=== PATIENT | female | born 1960 | race Caucasian/White ===

== ENCOUNTER 2020-01-06 13:27 | Outpatient (CLI) | payer OTHER, SELFPAY ==
--- NOTE | ~2020-01-06 | US_ITS ---
EXAMINATION: US thyroid EXAM DATE: 01/06/2020 14:09 INDICATION: Hypothyroidism. TECHNIQUE: Multiple grayscale and Doppler images of the thyroid were obtained (by a technologist who performed the scan) and subsequently reviewed. Individual nodules and recommendations may be reporte d in accordance with TI-RADS system as designated by the 2017 ACR White Paper TI-RADS committee. The re is no prior study for comparison. FINDINGS: Right thyroid lobe measures 2.8 x 0.9 x 0.9 cm, the left measuring 4.1 x 0.7 x 0.8 cm. Mildly heterog eneous thyroid echogenicity without hypervascularity. Thyroid volume within normal limits. No nodules identified. IMPRESSION: 1. Unremarkable thyroid ultrasound exam. Reviewed, dictated and finalized at location A.
== END 2020-01-06 13:28 | disposition home or self-care (01) ==
PROVIDERS: PCP Family Medicine; Visit Provider Physician Assistant
DX: E03.9 Hypothyroidism, unspecified (principal)
CPT/HCPCS: 76536

== ENCOUNTER 2020-02-03 16:22 | Outpatient (CLI) | payer OTHER, SELFPAY ==
--- NOTE | ~2020-02-03 | MM_ITS ---
EXAMINATION: MM screening abel BI w rajiv HISTORY: Screening mammogram TECHNIQUE: Craniocaudal and mediolateral oblique 3-D tomosynthesis images were obtained and synthetic 2-D images were generated. CAD analysis was submitted and interpreted. COMPARISON: 01/23/2019, 01/16/2018, 12/26/2016 bilateral digital screening mammogram examinations BREAST PARENCHYMAL COMPOSITION: The breasts are extremely dense, which lowers the sensitivity of mamm ography. FINDINGS: There are extensive bilateral calcified microhematomas. There is no evidence of suspicious mass, calcification, or architectural distortion to suggest malignancy in either breast. There has be en no suspicious interval change. IMPRESSION: 1. No mammographic evidence of malignancy. 2. Recommend routine screening mammography in one year. BI-RADS Category 2: Benign finding(s). Reviewed, dictated and finalized at location A.
== END 2020-02-03 16:23 | disposition home or self-care (01) ==
LOC: ANHIMG 16:24
PROVIDERS: PCP Family Medicine; Visit Provider Obstetrics & Gynecology
DX: Z12.31 Encounter for screening mammogram for malignant neoplasm of breast (principal)
CPT/HCPCS: 77063; 77067

== ENCOUNTER → 2020-12-03 06:33 | Outpatient (CLI) | payer OTHER, SELFPAY ==
[2020-12-03 18:47] LABS: SARS-CoV-2 RNA PCR Negative
== END ==
PROVIDERS: PCP Nurse Practitioner Adult Health; Visit Provider Nurse Practitioner Adult Health
DX: R68.89 Other general symptoms and signs (principal); Z20.822 Contact with and (suspected) exposure to COVID-19
CPT/HCPCS: C9803; U0003; U0005

== ENCOUNTER 2021-02-03 10:24 | Outpatient (CLI) | payer OTHER, SELFPAY ==
--- NOTE | ~2021-02-03 | MM_ITS ---
EXAMINATION: MM screening abel BI w rajiv HISTORY: Screening mammogram, history of left breast cancer TECHNIQUE: Craniocaudal and mediolateral oblique 3-D tomosynthesis images were obtained and synthetic 2-D images were generated. CAD analysis was submitted and interpreted. COMPARISON: 02/03/2020, 8019, 01/16/2018 BREAST PARENCHYMAL COMPOSITION: The breasts are extremely dense, which lowers the sensitivity of mamm ography. FINDINGS: Scattered benign-appearing calcifications are present. Stable lumpectomy changes are noted in the left breast. There is no evidence of suspicious mass, calcification, or architectural distorti on to suggest malignancy in either breast. There has been no suspicious interval change. IMPRESSION: 1. No mammographic evidence of malignancy. 2. Recommend routine screening mammography in one year. BI-RADS Category 2: Benign finding(s). Reviewed, dictated and finalized at location A.
== END 2021-02-03 10:25 | disposition home or self-care (01) ==
PROVIDERS: PCP Nurse Practitioner Adult Health; Visit Provider Obstetrics & Gynecology
DX: Z12.31 Encounter for screening mammogram for malignant neoplasm of breast (principal)
CPT/HCPCS: 77063; 77067

== ENCOUNTER → 2022-05-09 08:37 | Outpatient (CLI) | payer OTHER, SELFPAY ==
--- NOTE | ~2022-05-09 | MM_ITS ---
EXAMINATION: MM screening abel BI w rajiv HISTORY: Screening mammogram TECHNIQUE: Craniocaudal and mediolateral oblique 3-D tomosynthesis images were obtained and synthetic 2-D images were generated. CAD analysis was submitted and interpreted. COMPARISON: 02/03/2021, 02/03/2020, 01/23/2019, 01/16/2018 bilateral screening mammogram examinations BREAST PARENCHYMAL COMPOSITION: The breasts are extremely dense, which lowers the sensitivity of mamm ography. FINDINGS: Numerous benign calcifications are again noted, especially on the left. Chronic volume loss of the left breast consistent with history of 2009 partial mastectomy for breast cancer. There is no evidence of suspicious mass, calcification, or architectural distortion to suggest malig hao in either breast. There has been no suspicious interval change. IMPRESSION: 1. Status post left partial mastectomy for breast cancer. No mammographic evidence of malignancy. 2. Recommend routine screening mammography in one year. BI-RADS Category 2: Benign finding(s). Reviewed, dictated and finalized at location A. 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 Status post left partial mastectomy for breast cancer. No mammographic evide nce of malignancy. 2. Recommend routine screening mammography in one year. BI-RADS Category 2: Benign finding(s).
== END ==
PROVIDERS: PCP Obstetrics & Gynecology; Visit Provider Obstetrics & Gynecology
DX: Z12.31 Encounter for screening mammogram for malignant neoplasm of breast (principal); Z85.3 Personal history of malignant neoplasm of breast
CPT/HCPCS: 77063; 77067

== ENCOUNTER 2022-10-04 14:58 | Emergency (ER) | payer OTHER, SELFPAY ==
--- NOTE | 2022-10-04 15:05 | ED.SKABFB ---
HPI - Skin/Abscess/Foreign Bdy General Chief complaint: Skin/Abscess/Foreign Body Stated complaint: rash Time Seen by Provider: 10/04/22 15:07 Source: patient Mode of arrival: ambulatory Limitations: no limitations History of Present Illness HPI narrative: 61 y/o female presented for c/o severely itchy rash to groin/lisa area intermittently over the past few weeks. States symptoms will improve with OTC vagisil. Rates irritation 8/10. Denies urinary complaints. History of DM, states BS are well controlled. Related Data Home Medications Medication Instructions Recorded Confirmed cholecalciferol (vitamin D3) 100 4,000 unit PO DAILY 06/30/19 04/26/21 mcg (4,000 unit) capsule lancets 33 gauge (OneTouch Delica #100 ea 07/02/19 04/26/21 Lancets) famotidine 40 mg tablet (Pepcid) 40 mg PO DAILY 09/23/20 04/26/21 vit C 226 mg-vit E 90 mg-copper cap PO 09/23/20 04/26/21 0.8 mg-zinc oxide-lutein 5 mg capsule (PreserVision Lutein) vitamin E mixed 400 unit capsule unit PO 09/23/20 04/26/21 Allergies Allergy/AdvReac Type Severity Reaction Status Date / Time exenatide Allergy Mild swelling Verified 10/04/22 15:11 and rash Sulfa (Sulfonamide Allergy Mild rashes Verified 10/04/22 15:11 Antibiotics) tetracycline Allergy Mild swelling Verified 10/04/22 15:11 and rashes citicoline Allergy Unknown SWELLING, Verified 10/04/22 15:11 FLUSH Review of Systems Review of Systems: CONSTITUTIONAL: Denies body aches, fever, chills, or sweats. EYES: Denies visual changes, redness, or discharge. ENT: Denies rhinorrhea, congestion CARDIOVASCULAR: Denies chest pain, palpitations, or edema. RESPIRATORY: Denies cough or dyspnea. GASTROINTESTINAL: Denies abdominal pain, nausea, vomiting, or diarrhea. SKIN: per HPI MUSCULOSKELETAL: Denies back pain, joint pain, or myalgia. NEUROLOGIC: Denies headache, numbness, tingling, or weakness. PMFSH Past Medical History Medical History Benign essential HTN Hypothyroidism, acquired Macular degeneration (senile) of retina Microalbuminuria due to type 2 diabetes mellitus Pure hypercholesterolemia, unspecified Restless legs syndrome Batista syndrome Type 2 diabetes mellitus without complication, without long-term current use of insulin Surgical History Surgical History History of lumpectomy of left breast Family History Family History Other Cerebrovascular accident Family history of atrial fibrillation Family history of cardiovascular disease Family history of congestive heart failure Family history of hearing loss Hypertension Social History Social History Smoking status: Never smoker Second hand tobacco smoke exposure: No Alcohol intake: never Substance use: never Substance use type: does not use Living arrangements: with family Additional living arrangements comments: pt lives with her Occupation/Education: retired Gender identity (if verbalized by the patient): Female Sexual Orientation (if Verbalized by the Patient): Straight or Heterosexual Comments At time of signature, I have reviewed and agree with nursing past medical, surgical, social and family history unless otherwise noted. Please see nursing chart for further information. There is no relevant family history pertinent to the presenting complaint Exam Narrative: GENERAL: Well-appearing HEAD: Normocephalic, atraumatic. EYES: conjunctivae clear, and EOMI. ENT: Mucous membranes moist. Oropharynx without edema, erythema or lesions. NECK: Supple. No lymphadenopathy CHEST: Clear to auscultation. HEART: Regular rate and rhythm. SKIN: Warm, dry. Bilateral groin and pubic area with erythematous pruritic rash c/w fungal dermatitis NEURO: Alert
[2022-10-04 15:08] VITALS: BP 154/85; PULSE 100; RESP 16; TEMP 36.1; O2SAT 98
[2022-10-04 15:13] VITALS: BP 154/85; PULSE 100; RESP 16; TEMP 36.1; O2SAT 98
== END 2022-10-04 15:31 | disposition home or self-care (01) ==
PROVIDERS: Emergency Provider Nurse Practitioner Family; PCP Physician Assistant
DX: B37.49 Other urogenital candidiasis (principal); I10 Essential (primary) hypertension; E03.9 Hypothyroidism, unspecified; E78.00 Pure hypercholesterolemia, unspecified; G25.81 Restless legs syndrome; E11.9 Type 2 diabetes mellitus without complications; H35.30 Unspecified macular degeneration
CPT/HCPCS: 81003; 99213; G0463

== ENCOUNTER 2022-11-09 09:38 | Emergency (ER) | payer OTHER, SELFPAY ==
[2022-11-09 10:02] VITALS: BP 141/89; PULSE 75; RESP 16; TEMP 36.7; O2SAT 100
--- NOTE | 2022-11-09 10:23 | ED.SKABFB ---
HPI - Skin/Abscess/Foreign Bdy General Chief complaint: Skin/Abscess/Foreign Body Stated complaint: vaginal fungal infection Source: patient, RN notes reviewed and old records reviewed History of Present Illness HPI narrative: 61 yo F presents to urgent care with complaints of a persistent rash to her groin area x 4-6 weeks. Pt was seen here in the beginning of the rash and given Nystatin cream. Pt states the cream helped but has returned after stopping using it. Pt is diabetic and states her blood sugar was in the 150's today which is higher than her normal. Pt reports associated pruritis with this rash. Denies any vaginal discharge, fevers, urinary issues, or abdominal pain. Related Data Home Medications Medication Instructions Recorded Confirmed cholecalciferol (vitamin D3) 100 4,000 unit PO DAILY 06/30/19 04/26/21 mcg (4,000 unit) capsule lancets 33 gauge (RapidEnginesuch Delica #100 ea 07/02/19 04/26/21 Lancets) famotidine 40 mg tablet (Pepcid) 40 mg PO DAILY 09/23/20 04/26/21 vit C 226 mg-vit E 90 mg-copper cap PO 09/23/20 04/26/21 0.8 mg-zinc oxide-lutein 5 mg capsule (PreserVision Lutein) vitamin E mixed 400 unit capsule unit PO 09/23/20 04/26/21 Allergies Allergy/AdvReac Type Severity Reaction Status Date / Time exenatide Allergy Mild swelling Verified 10/04/22 15:11 and rash Sulfa (Sulfonamide Allergy Mild rashes Verified 10/04/22 15:11 Antibiotics) tetracycline Allergy Mild swelling Verified 10/04/22 15:11 and rashes citicoline Allergy Unknown SWELLING, Verified 10/04/22 15:11 FLUSH Review of Systems Review of Systems: Pertinent positives and pertinent negatives per HPI. PMFSH Past Medical History Medical History Benign essential HTN Hypothyroidism, acquired Macular degeneration (senile) of retina Microalbuminuria due to type 2 diabetes mellitus Pure hypercholesterolemia, unspecified Restless legs syndrome Batista syndrome Type 2 diabetes mellitus without complication, without long-term current use of insulin Surgical History Surgical History History of lumpectomy of left breast Family History Family History Other Cerebrovascular accident Family history of atrial fibrillation Family history of cardiovascular disease Family history of congestive heart failure Family history of hearing loss Hypertension Social History Social History Smoking status: Never smoker Second hand tobacco smoke exposure: No Alcohol intake: never Substance use: never Substance use type: does not use Living arrangements: with family Additional living arrangements comments: pt lives with her Occupation/Education: retired Gender identity (if verbalized by the patient): Female Sexual Orientation (if Verbalized by the Patient): Straight or Heterosexual Comments At the time of my signature, I reviewed and agree with the nursing past medical, surgical, social, and family history. There is no relevant family history pertinent to the patient complaint. Exam Narrative: GENERAL: This is a well-nourished, well-developed patient, in no apparent distress. HEAD: normocephalic, atraumatic. EYES: Sclera clear/white. Vision is grossly intact. EARS: External ears normal, auditory canals clear and without drainage. Hearing grossly intact. NOSE: External nose normal with no obvious nasal discharge, nares without redness, no rhinorrhea. THROAT: Mucous membranes moist, posterior pharynx clear. NECK: Neck supple, non-tender without lymphadenopathy, masses or thyromegaly. CARDIOVASCULAR: Regular rate RESPIRATORY: no respiratory distress SKIN: erythremic, flat, rash to bilateral groin. no exudate. NEURO: awake, alert, and oriented to person, place
== END 2022-11-09 10:37 | disposition home or self-care (01) ==
PROVIDERS: Emergency Provider Nurse Practitioner Family; PCP Pediatrics
DX: B36.9 Superficial mycosis, unspecified (principal); I10 Essential (primary) hypertension; E03.9 Hypothyroidism, unspecified; H35.30 Unspecified macular degeneration; E11.9 Type 2 diabetes mellitus without complications; E78.00 Pure hypercholesterolemia, unspecified; G25.81 Restless legs syndrome; Q96.9 Turner's syndrome, unspecified
CPT/HCPCS: 99213; G0463

== ENCOUNTER 2023-02-15 08:00 | Outpatient (NON) | payer OTHER, SELFPAY | END 2023-02-15 08:01 | disposition home or self-care (01) | LOC: ANHLAB 02-16 12:55 | PROVIDERS: PCP Pediatrics; Visit Provider Nurse Practitioner | DX: D22.39 Melanocytic nevi of other parts of face (principal); L72.0 Epidermal cyst | CPT/HCPCS: 88305 ==

== ENCOUNTER 2023-04-12 07:30 | Day surgery (SDC) | payer OTHER, SELFPAY ==
[2023-03-29 13:09] VITALS: BMI 32.1
--- NOTE | 2023-04-11 14:51 | PM.HPGS ---
History of Present Illness History of Present Illness Consent: Risks, benefits, and alternatives have been discussed and questions answered. Patient agrees to proceed with procedure. Chief complaint: neoplasm screening Narrative: Nidhi Martines is a 62 year old female referred for colon cancer screening. Her last colonoscopy was 10 years ago. [facility] Past Medical History Medical History (Updated 04/11/23 @ 14:51 by Teofilo Hernandez MD) Benign essential HTN Hypothyroidism, acquired Macular degeneration (senile) of retina Microalbuminuria due to type 2 diabetes mellitus Pure hypercholesterolemia, unspecified Restless legs syndrome Batista syndrome Type 2 diabetes mellitus without complication, without long-term current use of insulin Surgical History Surgical History (Updated 04/04/23 @ 11:10 by Tori Larson [facility]) History of lumbar fusion History of lumpectomy of left breast Family History Family History Other Cerebrovascular accident Family history of atrial fibrillation Family history of cardiovascular disease Family history of congestive heart failure Family history of hearing loss Hypertension Social History Social History (Updated 04/04/23 @ 11:10 by Tori Larson [facility]) Smoking status: Never smoker Second hand tobacco smoke exposure: No Alcohol intake: current Alcohol use details: 1 drink monthly Substance use: never Substance use type: does not use Lack of Transportation: No Lack of Food: Never True Current Housing: I Have Housing Concerned About Future Housing: No Difficulty Paying Gas/Electric Bills: No Difficulty Paying for Meds: No Currently Unemployed: No Education: Master's Degree or Higher Difficulty w/ Childcare or Family Care: No Living arrangements: with family Additional living arrangements comments: pt lives with her Occupation/Education: retired Gender identity (if verbalized by the patient): Female Sexual Orientation (if Verbalized by the Patient): Straight or Heterosexual Spiritual care concerns: No Meds Home Medications and Allergies Home Medications Medication Instructions Recorded Confirmed Type pramipexole 0.25 mg tablet 0.25 mg PO TID #270 tabs 01/02/20 04/04/23 Rx valsartan 160 1 tablet PO DAILY #90 tabs 01/02/20 04/04/23 Rx mg-hydrochlorothiazide 12.5 mg tablet blood sugar diagnostic #200 ea 07/07/20 04/04/23 Rx famotidine 40 mg tablet (Pepcid) 40 mg PO DAILY 09/23/20 04/04/23 History vit C 226 mg-vit E 90 mg-copper 1 cap PO BID 09/23/20 04/04/23 History 0.8 mg-zinc oxide-lutein 5 mg capsule (PreserVision Lutein) vitamin E mixed 400 unit capsule 400 unit PO DAILY 09/23/20 04/04/23 History mecobalamin (vitamin B12) 1,000 1,000 mcg PO DAILY 03/29/23 04/04/23 History mcg chewable tablet omega 2-wxg-swd-fish oil 900 1 cap PO DAILY 03/29/23 04/04/23 History mg-1,400 mg capsule,delayed release atorvastatin 20 mg tablet 20 mg PO DAILY #90 tabs 04/04/23 04/04/23 Rx blood sugar diagnostic (OneTouch #100 ea 04/04/23 04/04/23 Rx Ultra Test strips) cholecalciferol (vitamin D3) 100 1,000 unit PO DAILY 04/04/23 04/04/23 History mcg (4,000 unit) capsule dulaglutide 3 mg/0.5 mL 3 mg (0.5 mL) subcut WEEKLY 3 04/04/23 04/04/23 Rx subcutaneous pen injector months #6.5 mL lancets 33 gauge #100 ea 04/04/23 04/04/23 Rx levothyroxine 88 mcg tablet 88 mcg PO DAILY #90 tabs 04/04/23 04/04/23 Rx metformin 500 mg tablet 500 mg PO TIDWMEAL 90 days #270 04/04/23 04/04/23 Rx tabs blood sugar diagnostic (Accu-Chek #100 ea 04/10/23 Rx Guide test strips) Allergies Allergy/AdvReac Type Severity Reaction Status Date / Time exenatide Allergy Mild swelling Verified 04/04/23 11:08 and rash Sulfa (Sulfonamide Allergy Mild rashes Verified 04/04/23 11:08 Antibiotics) tetracycline Allergy Mild swelling Verified 04/04/23 11:08 and
[2023-04-12 06:23] VITALS: BP 147/84; PULSE 75; RESP 18; TEMP 36.6; O2SAT 100; BMI 32.3
[2023-05-14 14:55] VITALS: BMI 32.1
--- NOTE | 2023-05-25 09:35 | SUR.PREOP ---
Patient called regarding upcoming procedure. Reviewed preop instructions, appointment times, and procedure prep.
--- NOTE | 2023-05-27 14:18 | PM.HPGS ---
History of Present Illness History of Present Illness Consent: Risks, benefits, and alternatives have been discussed and questions answered. Patient agrees to proceed with procedure. Chief complaint: neoplasm screening Narrative: Nidhi Martines is a 62 year old female Referred for colon cancer screening. Her last colonoscopy was 10 years ago. Review of Systems Review of Systems: All systems reviewed & are unremarkable except as noted in HPI and below PMFSH Past Medical History Medical History Benign essential HTN Hypothyroidism, acquired Macular degeneration (senile) of retina Microalbuminuria due to type 2 diabetes mellitus Pure hypercholesterolemia, unspecified Restless legs syndrome Batista syndrome Type 2 diabetes mellitus without complication, without long-term current use of insulin Surgical History Surgical History History of lumbar fusion History of lumpectomy of left breast Family History Family History Other Cerebrovascular accident Family history of atrial fibrillation Family history of cardiovascular disease Family history of congestive heart failure Family history of hearing loss Hypertension Social History Social History Smoking status: Never smoker Second hand tobacco smoke exposure: No Alcohol intake: current Alcohol use details: Rarely Substance use: never Substance use type: does not use Lack of Transportation: No Lack of Food: Never True Current Housing: I Have Housing Concerned About Future Housing: No Difficulty Paying Gas/Electric Bills: No Difficulty Paying for Meds: No Currently Unemployed: No Education: Master's Degree or Higher Difficulty w/ Childcare or Family Care: No Living arrangements: with family Additional living arrangements comments: pt lives with her Occupation/Education: retired Gender identity (if verbalized by the patient): Female Sexual Orientation (if Verbalized by the Patient): Straight or Heterosexual Spiritual care concerns: No Meds Home Medications and Allergies Home Medications Medication Instructions Recorded Confirmed Type pramipexole 0.25 mg tablet 0.25 mg PO TID #270 tabs 01/02/20 05/28/23 Rx valsartan 160 1 tablet PO DAILY #90 tabs 01/02/20 05/28/23 Rx mg-hydrochlorothiazide 12.5 mg tablet blood sugar diagnostic #200 ea 07/07/20 05/14/23 Rx famotidine 40 mg tablet (Pepcid) 40 mg PO DAILY 09/23/20 05/28/23 History vit C 226 mg-vit E 90 mg-copper 1 cap PO BID 09/23/20 05/28/23 History 0.8 mg-zinc oxide-lutein 5 mg capsule (PreserVision Lutein) vitamin E mixed 400 unit capsule 400 unit PO DAILY 09/23/20 05/28/23 History mecobalamin (vitamin B12) 1,000 1,000 mcg PO DAILY 03/29/23 05/28/23 History mcg chewable tablet omega 7-iuz-coo-fish oil 900 1 cap PO DAILY 03/29/23 05/28/23 History mg-1,400 mg capsule,delayed release atorvastatin 20 mg tablet 20 mg PO DAILY #90 tabs 04/04/23 05/28/23 Rx blood sugar diagnostic (OneTouch #100 ea 04/04/23 05/14/23 Rx Ultra Test strips) cholecalciferol (vitamin D3) 100 1,000 unit PO DAILY 04/04/23 05/28/23 History mcg (4,000 unit) capsule lancets 33 gauge #100 ea 04/04/23 05/14/23 Rx levothyroxine 88 mcg tablet 88 mcg PO DAILY #90 tabs 04/04/23 05/28/23 Rx metformin 500 mg tablet 500 mg PO TIDWMEAL 90 days #270 04/04/23 05/28/23 Rx tabs blood sugar diagnostic (Accu-Chek #100 ea 04/10/23 05/14/23 Rx Guide test strips) dulaglutide 0.75 mg/0.5 mL 0.75 mg (0.5 mL) subcut WEEKLY #2 04/17/23 05/28/23 Rx subcutaneous pen injector mL (Trulicity) Allergies Allergy/AdvReac Type Severity Reaction Status Date / Time exenatide Allergy Mild swelling Verified 05/28/23 08:15 and rash Sulfa (Sulfonamide Allergy M
--- NOTE | 2023-05-28 09:07 | PM.HPGS ---
History of Present Illness History of Present Illness Consent: Risks, benefits, and alternatives have been discussed and questions answered. Patient agrees to proceed with procedure. Chief complaint: neoplasm screening Narrative: Nidhi Martines is a 62 year old female referred for colon cancer screening. Her last colonoscopy was 10 years ago. Review of Systems Review of Systems: All systems reviewed & are unremarkable except as noted in HPI and below PMFSH Past Medical History Medical History Benign essential HTN Hypothyroidism, acquired Macular degeneration (senile) of retina Microalbuminuria due to type 2 diabetes mellitus Pure hypercholesterolemia, unspecified Restless legs syndrome Batista syndrome Type 2 diabetes mellitus without complication, without long-term current use of insulin Surgical History Surgical History History of lumbar fusion History of lumpectomy of left breast Family History Family History Other Cerebrovascular accident Family history of atrial fibrillation Family history of cardiovascular disease Family history of congestive heart failure Family history of hearing loss Hypertension Social History Social History Smoking status: Never smoker Second hand tobacco smoke exposure: No Alcohol intake: current Alcohol use details: Rarely Substance use: never Substance use type: does not use Lack of Transportation: No Lack of Food: Never True Current Housing: I Have Housing Concerned About Future Housing: No Difficulty Paying Gas/Electric Bills: No Difficulty Paying for Meds: No Currently Unemployed: No Education: Master's Degree or Higher Difficulty w/ Childcare or Family Care: No Living arrangements: with family Additional living arrangements comments: pt lives with her Occupation/Education: retired Gender identity (if verbalized by the patient): Female Sexual Orientation (if Verbalized by the Patient): Straight or Heterosexual Spiritual care concerns: No Meds Home Medications and Allergies Home Medications Medication Instructions Recorded Confirmed Type pramipexole 0.25 mg tablet 0.25 mg PO TID #270 tabs 01/02/20 05/28/23 Rx valsartan 160 1 tablet PO DAILY #90 tabs 01/02/20 05/28/23 Rx mg-hydrochlorothiazide 12.5 mg tablet blood sugar diagnostic #200 ea 07/07/20 05/14/23 Rx famotidine 40 mg tablet (Pepcid) 40 mg PO DAILY 09/23/20 05/28/23 History vit C 226 mg-vit E 90 mg-copper 1 cap PO BID 09/23/20 05/28/23 History 0.8 mg-zinc oxide-lutein 5 mg capsule (PreserVision Lutein) vitamin E mixed 400 unit capsule 400 unit PO DAILY 09/23/20 05/28/23 History mecobalamin (vitamin B12) 1,000 1,000 mcg PO DAILY 03/29/23 05/28/23 History mcg chewable tablet omega 5-cin-etg-fish oil 900 1 cap PO DAILY 03/29/23 05/28/23 History mg-1,400 mg capsule,delayed release atorvastatin 20 mg tablet 20 mg PO DAILY #90 tabs 04/04/23 05/28/23 Rx blood sugar diagnostic (OneTouch #100 ea 04/04/23 05/14/23 Rx Ultra Test strips) cholecalciferol (vitamin D3) 100 1,000 unit PO DAILY 04/04/23 05/28/23 History mcg (4,000 unit) capsule lancets 33 gauge #100 ea 04/04/23 05/14/23 Rx levothyroxine 88 mcg tablet 88 mcg PO DAILY #90 tabs 04/04/23 05/28/23 Rx metformin 500 mg tablet 500 mg PO TIDWMEAL 90 days #270 04/04/23 05/28/23 Rx tabs blood sugar diagnostic (Accu-Chek #100 ea 04/10/23 05/14/23 Rx Guide test strips) dulaglutide 0.75 mg/0.5 mL 0.75 mg (0.5 mL) subcut WEEKLY #2 04/17/23 05/28/23 Rx subcutaneous pen injector mL (Trulicity) Allergies Allergy/AdvReac Type Severity Reaction Status Date / Time exenatide Allergy Mild swelling Verified 05/28/23 08:15 and rash Sulfa (Sulfonamide Allergy Mi
== END 2023-04-12 07:31 | disposition home or self-care (01) ==
PROVIDERS: PCP Physician Assistant; Visit Provider Internal Medicine Gastroenterology
DX: Z12.11 Encounter for screening for malignant neoplasm of colon (principal); Z53.9 Procedure and treatment not carried out, unspecified reason
CPT/HCPCS: 99211; G0463

== ENCOUNTER 2023-05-18 13:49 | Outpatient (CLI) | payer OTHER, SELFPAY ==
--- NOTE | ~2023-05-18 | MM_ITS ---
EXAMINATION: MM screening abel BI w rajiv HISTORY: Screening mammogram TECHNIQUE: Craniocaudal and mediolateral oblique 3-D tomosynthesis images were obtained and synthetic 2-D images were generated. CAD analysis was submitted and interpreted. COMPARISON: 05/09/2022, 02/03/2021 bilateral screening mammogram examinations BREAST PARENCHYMAL COMPOSITION: The breasts are extremely dense, which lowers the sensitivity of mamm ography. FINDINGS: There is volume loss of the left lung secondary to history of partial left mastectomy for b reast cancer. Innumerable benign calcifications are scattered in each breast, more numerous on the left. There is n o evidence of suspicious mass, calcification, or architectural distortion to suggest malignancy in ei ther breast. There has been no suspicious interval change. IMPRESSION: 1. Status post left partial mastectomy for breast cancer. No mammographic evidence of malignancy. 2. Extremely dense breast stroma is noted bilaterally, which reduces the sensitivity of the mammograp hic examination. 3. Annual mammographic screening mammography is recommended. In this setting of extremely dense colleen a, ultrasound may be of supplemental benefit. However, there are extensive calcifications may limit t he sensitivity of ultrasound as well. Given the extremely dense stroma, extensive calcifications of t he history of left breast cancer and partial left mastectomy, magnetic resonance imaging periodically may be of benefit. BI-RADS Category 2: Benign finding(s). Reviewed, dictated and finalized at location A. CY DIRECTOR IMPRESSION: 1. Status post left partial mastectomy for breast cancer. No mammographic evide nce of malignancy. 2. Extremely dense breast stroma is noted bilaterally, which reduces the sensit ivity of the mammographic examination. 3. Annual mammographic screening mammography is recommended. In this setting of extremely dense stroma, ultrasound may be of supplemental benefit. However, th ere are extensive calcifications may limit the sensitivity of ultrasound as wel l. Given the extremely dense stroma, extensive calcifications of the history of left breast cancer and partial left mastectomy, magnetic resonance imaging per iodically may be of benefit. BI-RADS Category 2: Benign finding(s).
== END 2023-05-18 13:50 | disposition home or self-care (01) ==
PROVIDERS: PCP Physical Medicine & Rehabilitation; Visit Provider Obstetrics & Gynecology
DX: Z12.31 Encounter for screening mammogram for malignant neoplasm of breast (principal)
CPT/HCPCS: 77063; 77067

== ENCOUNTER 2023-05-21 09:45 | Outpatient (RCR) | payer OTHER, SELFPAY ==
--- NOTE | 2023-04-23 11:03 | PTOPEVAL1 ---
Assessment and note entered by Mason Avina, PT Evaluation Information Assessment Status Evaluation Diagnosis Radicular low back pain, altered gait, leg weakness Onset 5 years Subjective Information Reports that she she is very active but is having pain frequently. She does not notice any consistency in her pain at this time. She has a harder time in cold weather. Pain is typically L Mid back and Right buttock. She had ankle surgery in 1993 and has occasional trouble from that. Reported Pain Level Pain Score 6: Self Report Assessment PT Clinical Summary Ms. Flores presents with signs and symptoms consistent with radiculopathy, sciatica, and hip imbalance resulting in altered gait and pain with ADLs. She will benefit fom skilled therapy to address thee deficits for improved functional return and pain free daily activity to improve quality of life. Plan of Care Interventions Aquatic Therapy,Gait Training,Manual Therapy,Neuro Re-education,Therapeutic Activities,Therapeutic Exercise PT Services Indicated Yes Treatment Frequency and 2x/week for 4 weeks Duration These treatments will address the objective and functional deficits as defined above. The patient will be advanced safely and appropriately in order for the patient to progress towards his/her prior level of function. Additional exercises will be introduced and as well as a comprehensive home exercise program upon discharge, if needed, ?to ensure carryover of functional gains achieved in the clinic. This treatment plan has been reviewed and agreement upon by the patient.
--- NOTE | 2023-05-21 11:34 | PTOPDC ---
Assessment and note entered by Mason Avina, PT Evaluation Information Assessment Status Discharge Diagnosis Radicular low back pain, altered gait, leg weakness Onset 5 years Subjective Information Reports that she she is very active but is having pain frequently. She does not notice any consistency in her pain at this time. She has a harder time in cold weather. Pain is typically L Mid back and Right buttock. She had ankle surgery in 1993 and has occasional trouble from that. Reported Pain Level Pain Score 4: Self Report Assessment PT Clinical Summary Patient has seen gait improvement and hip ROM improvement. Reflects compliance with HEP which has significantly contributed to this. She is suitable for D/C to HEP at this time. Plan of Care PT Services Indicated No
--- NOTE | 2023-05-21 11:35 | OPREHPOC ---
Outpatient Therapy Plan of Care This is a Multidisciplinary Plan of Care that may contain components documented by all disciplines (PT, OT, and ST.) PT Problem 1 PT Problem #1 Knowledge Deficit PT Goal 1 Goal [place] with HEP for hip mobility Target Visit 4 Progress Met PT Problem 2 PT Problem #2 Impaired Range of Motion PT Goal 1 Goal Improve L hip external rotation to 45 degrees to improve kinematic chain motion and gait cycle Target Visit 8 Progress Met PT Goal 2 Goal Improve L hip abduction to 40 degrees to improve kinematic chain motion and gait cycle. Reduce abnormal pelvic pull Target Visit 8 Progress Met PT Problem 3 PT Problem #3 Impaired Gait PT Goal 1 Goal Ambulate with even stride length bilaterally and upright trunk Target Visit 8 Progress Not Met Comment Improvement noted, but requires continued strengthening and intuition to help correct. Structural deficits may be present limiting this.
== END 2023-05-21 12:26 | disposition home or self-care (01) ==
LOC: ANHPT 09:45
PROVIDERS: PCP Physical Medicine & Rehabilitation; Visit Provider Physical Medicine & Rehabilitation
DX: M54.16 Radiculopathy, lumbar region (principal)
CPT/HCPCS: 97110; 97113; 97116; 97161; 97530

== ENCOUNTER 2023-05-22 09:47 | Outpatient (CLI) | payer OTHER, SELFPAY ==
[2023-05-22 10:14] LABS: Alanine Aminotransferase 23 U/L (6-35); Albumin Level 4.2 g/dL (3.5-5.1); Alkaline Phosphatase 75 U/L (38-126); Anion Gap 9 mmol/L (8-16); Aspartate Amino Transferase 30 U/L (14-36); Bilirubin,Total 0.8 mg/dL (0.2-1.3); Blood Urea Nitrogen 16 mg/dL (7-17); Calcium 9.5 mg/dL (8.4-10.2); Carbon Dioxide 30 mmol/L (22-30); Chloride 100 mmol/L (98-107); Cholesterol 160 mg/dL (0-200); Estimated Glomerular Filt Rate > 60; Glucose 146 mg/dL (65-110); HDL Direct 34 mg/dL; Potassium 3.8 mmol/L (3.4-5.0); Sodium 139 mmol/L (137-145); Triglycerides 206 mg/dL (<150)
[2023-05-22 10:25] LABS: LDL Cholesterol Direct 97 mg/dL
[2023-05-22 10:45] LABS: Thyroid Stimulating Hormone 0.195 uIU/mL (0.465-4.680)
[2023-05-22 11:18] LABS: Vitamin D 25 Hydroxy 35.1 ng/mL
[2023-05-22 11:43] LABS: MALB Creatinine Ratio 8.6 mg/g (0-30); Microalbumin Urine Random 16.1 mg/L (0-16.7)
== END 2023-05-22 09:48 | disposition home or self-care (01) ==
LOC: ANHLAB 09:48
PROVIDERS: PCP Physical Medicine & Rehabilitation; Visit Provider Internal Medicine Endocrinology, Diabetes & Metabolism
DX: E03.9 Hypothyroidism, unspecified (principal); E11.29 Type 2 diabetes mellitus with other diabetic kidney complication; R80.9 Proteinuria, unspecified; R79.89 Other specified abnormal findings of blood chemistry
CPT/HCPCS: 36415; 80053; 80061; 82043; 82306; 82607; 84439; 84443

== ENCOUNTER 2023-05-28 07:29 | Day surgery (SDC) | payer OTHER, SELFPAY ==
[2023-05-28 08:35] LABS: Glucose Point of Care 183 mg/dl (65-105)
[2023-05-28] MEDS: LACTATED RINGERS 1,000 ML 150 ML IV CONT (08:35)
[2023-05-28 08:36] VITALS: BP 136/78; PULSE 66; RESP 16; TEMP 36.4; O2SAT 100
--- NOTE | 2023-05-28 08:59 | WPDANESEPPF ---
Anes - Initial Pre Proc Eval Procedure: Operation Date: 05/28/23 09:30 Proposed Procedures p Screening Colonoscopy - Teofilo Hernandez MD Date/Time: 05/28/23 08:59 Surgeon: Teofilo Hernandez MD Pre Op Diagnosis: neoplasm screen Patient Data Age: 62 Gender: F Height: Weight: 65.8 kg Last Vital Signs Temp 97.6 F 05/28/23 08:36 Pulse 66 05/28/23 08:36 Resp 16 05/28/23 08:36 BP 136/78 05/28/23 08:36 Pulse Ox 100 05/28/23 08:36 O2 Del Method Room Air 05/28/23 08:36 Allergies Allergy/AdvReac Type Severity Reaction Status Date / Time exenatide Allergy Mild swelling Verified 05/28/23 08:15 and rash Sulfa (Sulfonamide Allergy Mild rashes Verified 05/28/23 08:15 Antibiotics) tetracycline Allergy Mild swelling Verified 05/28/23 08:15 and rashes Home Medications Medication Instructions Recorded Confirmed Type pramipexole 0.25 mg tablet 0.25 mg PO TID #270 tabs 01/02/20 05/28/23 Rx valsartan 160 1 tablet PO DAILY #90 tabs 01/02/20 05/28/23 Rx mg-hydrochlorothiazide 12.5 mg tablet blood sugar diagnostic #200 ea 07/07/20 05/14/23 Rx famotidine 40 mg tablet (Pepcid) 40 mg PO DAILY 09/23/20 05/28/23 History vit C 226 mg-vit E 90 mg-copper 1 cap PO BID 09/23/20 05/28/23 History 0.8 mg-zinc oxide-lutein 5 mg capsule (PreserVision Lutein) vitamin E mixed 400 unit capsule 400 unit PO DAILY 09/23/20 05/28/23 History mecobalamin (vitamin B12) 1,000 1,000 mcg PO DAILY 03/29/23 05/28/23 History mcg chewable tablet omega 1-hji-kzu-fish oil 900 1 cap PO DAILY 03/29/23 05/28/23 History mg-1,400 mg capsule,delayed release atorvastatin 20 mg tablet 20 mg PO DAILY #90 tabs 04/04/23 05/28/23 Rx blood sugar diagnostic (OneTouch #100 ea 04/04/23 05/14/23 Rx Ultra Test strips) cholecalciferol (vitamin D3) 100 1,000 unit PO DAILY 04/04/23 05/28/23 History mcg (4,000 unit) capsule lancets 33 gauge #100 ea 04/04/23 05/14/23 Rx levothyroxine 88 mcg tablet 88 mcg PO DAILY #90 tabs 04/04/23 05/28/23 Rx metformin 500 mg tablet 500 mg PO TIDWMEAL 90 days #270 04/04/23 05/28/23 Rx tabs blood sugar diagnostic (Accu-Chek #100 ea 04/10/23 05/14/23 Rx Guide test strips) dulaglutide 0.75 mg/0.5 mL 0.75 mg (0.5 mL) subcut WEEKLY #2 04/17/23 05/28/23 Rx subcutaneous pen injector mL (Trulicity) Laboratory Tests 05/28/23 08:32 POC Capillary Glucose 183 H mg/dl (65-105) Patient hx anesthesia problems: none Family hx anesthesia problems: none Results Review: All pre-operative results and documents have been reviewed as part of the pre-operative evaluation. [facility] Past Medical History Medical History Benign essential HTN Hypothyroidism, acquired Macular degeneration (senile) of retina Microalbuminuria due to type 2 diabetes mellitus Pure hypercholesterolemia, unspecified Restless legs syndrome Batista syndrome Type 2 diabetes mellitus without complication, without long-term current use of insulin Surgical History Surgical History History of lumbar fusion History of lumpectomy of left breast Family History Family History Other Cerebrovascular accident Family history of atrial fibrillation Family history of cardiovascular disease Family history of congestive heart failure Family history of hearing loss Hypertension Social History Social History Smoking status: Never smoker Second hand tobacco smoke exposure: No Alcohol intake: current Alcohol use details: Rarely Substance use: never Substance use type: does not use Lack of Transportation: No Lack of Food: Never True Current Housing: I Have Housing Concerned About Future Housing: No Difficulty Paying Gas/Electric Bills: No Difficulty Paying for Meds
--- NOTE | 2023-05-28 09:08 | HP_ITS ---
This report was moved to the correct visit on 05/29/2023. The original report was signed by Teofilo Hernandez MD on 05/28/23 [id number]. History of Present Illness History of Present Illness Consent: Risks, benefits, and alternatives have been discussed and questions answered. Patient agrees to proceed with procedure. Chief complaint: neoplasm screening Narrative: Nidhi Martines is a 62 year old female referred for colon cancer screening. Her last colonoscopy was 10 years ago. Review of Systems Review of Systems: All systems reviewed & are unremarkable except as noted in HPI and below PMFSH Past Medical History Medical History Benign essential HTN Hypothyroidism, acquired Macular degeneration (senile) of retina Microalbuminuria due to type 2 diabetes mellitus Pure hypercholesterolemia, unspecified Restless legs syndrome Batista syndrome Type 2 diabetes mellitus without complication, without long-term current use of insulin Surgical History Surgical History History of lumbar fusion History of lumpectomy of left breast Family History Family History Other Cerebrovascular accident Family history of atrial fibrillation Family history of cardiovascular disease Family history of congestive heart failure Family history of hearing loss Hypertension Social History Social History Smoking status: Never smoker Second hand tobacco smoke exposure: No Alcohol intake: current Alcohol use details: Rarely Substance use: never Substance use type: does not use Lack of Transportation: No Lack of Food: Never True Current Housing: I Have Housing Concerned About Future Housing: No Difficulty Paying Gas/Electric Bills: No Difficulty Paying for Meds: No Currently Unemployed: No Education: Master's Degree or Higher Difficulty w/ Childcare or Family Care: No Living arrangements: with family Additional living arrangements comments: pt lives with her Occupation/Education: retired Gender identity (if verbalized by the patient): Female Sexual Orientation (if Verbalized by the Patient): Straight or Heterosexual Spiritual care concerns: No Meds Home Medications and Allergies Home Medications Medication Instructions Recorded Confirmed Type pramipexole 0.25 mg tablet 0.25 mg PO TID #270 tabs 01/02/20 05/28/23 Rx valsartan 160 1 tablet PO DAILY #90 tabs 01/02/20 05/28/23 Rx mg-hydrochlorothiazide 12.5 mg tablet blood sugar diagnostic #200 ea 07/07/20 05/14/23 Rx famotidine 40 mg tablet (Pepcid) 40 mg PO DAILY 09/23/20 05/28/23 History vit C 226 mg-vit E 90 mg-copper 1 cap PO BID 09/23/20 05/28/23 History 0.8 mg-zinc oxide-lutein 5 mg capsule (PreserVision Lutein) vitamin E mixed 400 unit capsule 400 unit PO DAILY 09/23/20 05/28/23 History mecobalamin (vitamin B12) 1,000 1,000 mcg PO DAILY 03/29/23 05/28/23 History mcg chewable tablet omega 5-lox-pwt-fish oil 900 1 cap PO DAILY 03/29/23 05/28/23 History mg-1,400 mg capsule,delayed release atorvastatin 20 mg tablet 20 mg PO DAILY #90 tabs 04/04/23 05/28/23 Rx blood sugar diagnostic (OneTouch #100 ea 04/04/23 05/14/23 Rx Ultra Test strips) cholecalciferol (vitamin D3) 100 1,000 unit PO DAILY 04/04/23 05/28/23 History mcg (4,000 unit) capsule lancets 33 gauge #100 ea 04/04/23 05/14/23 Rx levothyroxine 88 mcg tablet 88 mcg PO DAILY #90 tabs
[2023-05-28 09:34] VITALS: BP 109/93; PULSE 71; RESP 19; O2SAT 98
[2023-05-28 09:45] VITALS: BP 119/59; PULSE 64; RESP 23; O2SAT 100
[2023-05-28 09:49] VITALS: BP 119/67; PULSE 64; RESP 20; O2SAT 100
== END 2023-05-28 10:00 | disposition home or self-care (01) ==
LOC: ANHENDO 13:54
PROVIDERS: PCP Physician Assistant; Referring Provider Obstetrics & Gynecology; Visit Provider Internal Medicine Gastroenterology
PROC: 0DJD8ZZ Inspection of Lower Intestinal Tract, Via Natural or Artificial Opening Endoscopic (ICD-10-PCS; CPT 45378; principal; 2023-05-28 09:30)
DX: Z12.11 Encounter for screening for malignant neoplasm of colon (principal); K57.30 Diverticulosis of large intestine without perforation or abscess without bleeding; I10 Essential (primary) hypertension; E03.9 Hypothyroidism, unspecified; E78.00 Pure hypercholesterolemia, unspecified; E11.9 Type 2 diabetes mellitus without complications; G25.81 Restless legs syndrome; Q96.9 Turner's syndrome, unspecified; R80.9 Proteinuria, unspecified; Z79.84 Long term (current) use of oral hypoglycemic drugs; Z79.85 Long-term (current) use of injectable non-insulin antidiabetic drugs; Z82.49 Family history of ischemic heart disease and other diseases of the circulatory system
CPT/HCPCS: G0121; 82948; J2704; J7120

== ENCOUNTER 2023-09-25 11:45 | Outpatient (CLI) | payer OTHER, SELFPAY ==
--- NOTE | ~2023-09-25 | XR_ITS ---
XR pelvis 1-2V 09/25/2023 12:03 Indication: Sacroiliitis Procedure: AP pelvis Comparison: No prior studies for comparison. Findings: Sacral foramen are symmetric. Pelvic rings are intact. There is bilateral symmetric osteoar thritis of the hips. There are pedicular screws and rods transfixing the lower lumbar spine and sacru m. Vertically oriented rods are fractured between the right L5 and S1 pedicular screws and between th e left L4 and L5 pedicular screws. There are prosthetic disc devices at L4-5 and L5-S1. No acute frac ture or traumatic malalignment. Impression: 1: Mild bilateral osteoarthritis of the hips. Reviewed, dictated and finalized at location A. Impression: 1: Mild bilateral osteoarthritis of the hips.
== END 2023-09-25 11:46 ==
PROVIDERS: PCP Physical Medicine & Rehabilitation Pain Medicine; Visit Provider Physical Medicine & Rehabilitation Pain Medicine
DX: M16.0 Bilateral primary osteoarthritis of hip (principal); M46.1 Sacroiliitis, not elsewhere classified
CPT/HCPCS: 72170

== ENCOUNTER 2023-11-26 13:59 | Emergency (ER) | payer OTHER, SELFPAY ==
--- NOTE | 2023-11-26 14:14 | ED.URI ---
HPI - URI/Sore Throat General Chief Complaint: Upper Respiratory Infection Stated Complaint: SOB Time Seen by Provider: 11/26/23 14:21 Source: patient and RN notes reviewed Mode of arrival: ambulatory Limitations: no limitations History of Present Illness HPI Narrative: 63-year-old female presents with concern for several week history of sinus congestion, drainage, pressure, cough, chest congestion. She denies fever, body aches, chills, sweats. She reports feeling of shortness of breath. MD elicited complaint: cough and nasal congestion Related Data Home Medications Medication Instructions Recorded Confirmed famotidine 40 mg tablet (Pepcid) 40 mg PO DAILY 09/23/20 11/26/23 vitamin E mixed 400 unit capsule 400 unit PO DAILY 09/23/20 11/26/23 cholecalciferol (vitamin D3) 100 1,000 unit PO DAILY 04/04/23 11/26/23 mcg (4,000 unit) capsule vitamins A,C,B-sbzd-vyybpt 2,148 2 tablet PO BID 11/19/23 11/26/23 mcg-113 mg-45 mg-17.4 mg tablet Allergies Allergy/AdvReac Type Severity Reaction Status Date / Time exenatide Allergy Mild swelling Verified 11/26/23 14:22 and rash Sulfa (Sulfonamide Allergy Mild rashes Verified 11/26/23 14:22 Antibiotics) tetracycline Allergy Mild swelling Verified 11/26/23 14:22 and rashes Review of Systems Review of Systems: CONSTITUTIONAL: Denies malaise, chills, sweats, or fever. EYES: Denies visual changes, redness, or discharge. ENT: Reports rhinorrhea, congestion, sinus pain CARDIOVASCULAR: Denies chest pain, palpitations, or edema. RESPIRATORY: Reports cough, chest congestion, shortness of breath. GASTROINTESTINAL: Denies abdominal pain, nausea, vomiting, diarrhea SKIN: Denies rash or itching. MUSCULOSKELETAL: Denies myalgia. NEUROLOGIC: Denies headache. 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 Type 2 diabetes mellitus without complication, without long-term current use of insulin Surgical History Surgical History History of ankle surgery History of lumbar fusion History of lumpectomy of left breast Family History Family History Father Diabetes mellitus Hypertension Heart disease Mother Hypertension Sibling Breast cancer Hypertension Legal Guardian Stomach cancer Hypertension Cerebrovascular accident Other Family history of atrial fibrillation Family history of cardiovascular disease Family history of congestive heart failure Family history of hearing loss Social History Social History Smoking status: Never smoker Second hand tobacco smoke exposure: No Alcohol intake: current Alcohol use details: Rarely Substance use: never Substance use type: does not use Do You Feel Safe in your Home?: Yes Lack of Transportation: No Lack of Food: Never True Current Housing: I Have Housing Concerned About Future Housing: No Difficulty Paying Gas/Electric Bills: No Difficulty Paying for Meds: No Currently Unemployed: No Education: Master's Degree or Higher Difficulty w/ Childcare or Family Care: No Living arrangements: with family Additional living arrangements comments: pt lives with her 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
[2023-11-26 14:15] VITALS: BP 117/79; PULSE 86; RESP 20; TEMP 37.2; O2SAT 99
== END 2023-11-26 14:31 | disposition home or self-care (01) ==
PROVIDERS: Emergency Provider Nurse Practitioner; PCP Family Medicine
DX: J32.9 Chronic sinusitis, unspecified (principal); J40 Bronchitis, not specified as acute or chronic; I10 Essential (primary) hypertension; E03.9 Hypothyroidism, unspecified; E11.9 Type 2 diabetes mellitus without complications; G25.81 Restless legs syndrome; Q96.9 Turner's syndrome, unspecified; E78.00 Pure hypercholesterolemia, unspecified; H35.30 Unspecified macular degeneration
CPT/HCPCS: 99213; G0463

== ENCOUNTER 2024-01-07 12:42 | Outpatient (CLI) | payer OTHER, SELFPAY ==
[2024-01-07 13:49] LABS: Free T4 Free Thyroxine 1.55 ng/mL (0.78-2.19)
[2024-01-07 14:03] LABS: Thyroid Stimulating Hormone 0.183 uIU/mL (0.465-4.680)
== END 2024-01-07 12:43 | disposition home or self-care (01) ==
LOC: ANHLAB 12:44
PROVIDERS: PCP Nurse Practitioner Adult Health; Visit Provider Internal Medicine Endocrinology, Diabetes & Metabolism
DX: E03.9 Hypothyroidism, unspecified (principal)
CPT/HCPCS: 36415; 84439; 84443

== ENCOUNTER 2024-04-28 08:33 | Outpatient (CLI) | payer OTHER, SELFPAY ==
[2024-04-28 09:17] LABS: Alanine Aminotransferase 21 U/L (6-35); Albumin Level 4.8 g/dL (3.5-5.1); Alkaline Phosphatase 76 U/L (38-126); Anion Gap 11 mmol/L (4-12); Aspartate Amino Transferase 30 U/L (14-36); Bilirubin,Total 0.8 mg/dL (0.2-1.3); Blood Urea Nitrogen 17 mg/dL (7-17); Calcium 9.6 mg/dL (8.4-10.2); Carbon Dioxide 29 mmol/L (22-30); Chloride 98 mmol/L (98-107); Cholesterol 168 mg/dL (0-200); Estimated Glomerular Filt Rate > 60; Glucose 138 mg/dL (65-110); HDL Direct 44 mg/dL; Sodium 138 mmol/L (137-145); Triglycerides 153 mg/dL (<150)
[2024-04-28 09:28] LABS: LDL Cholesterol Direct 90 mg/dL
[2024-04-28 13:41] LABS: Vitamin D 25 Hydroxy 43.7 ng/mL
[2024-04-28 13:46] LABS: Creatinine Urine 160.4 mg/dL; MALB Creatinine Ratio 4.9 mg/g (0-30); Microalbumin Urine Random 7.9 mg/L (0-16.7)
== END 2024-04-28 08:34 | disposition home or self-care (01) ==
LOC: ANHLAB 08:35
PROVIDERS: PCP Nurse Practitioner Adult Health; Visit Provider Internal Medicine Endocrinology, Diabetes & Metabolism
DX: E11.9 Type 2 diabetes mellitus without complications (principal); R79.89 Other specified abnormal findings of blood chemistry; E53.8 Deficiency of other specified B group vitamins; E03.9 Hypothyroidism, unspecified
CPT/HCPCS: 36415; 80053; 80061; 82043; 82306; 82607; 84439; 84443

== ENCOUNTER 2024-05-29 08:49 | Outpatient (CLI) | payer OTHER, SELFPAY ==
--- NOTE | 2024-05-29 09:11 | ECHO_ITS ---
Patient Info Name: Nidhi Martines Age: 63 years : 1960 Gender: Female Ht: 56 in Wt: 143 lbs BSA: 1.63 m2 HR: 79 bpm BP: 150 / 88 mmHg Heart Rhythm: Sinus Rhythm Technical Quality: Good Exam Date: 05/29/2024 9:18 AM Exam Location: Echo Lab Patient Status: Outpatient Admit Date: 05/29/2024 Staff Ordering Physician: Itzel Suarez APRN Belt Weaver: Danielle Padilla RDCS Attending Provider: Itzel Suarez APRN Referring Physician: Erick ROBERTO; Exam Type: CA echo doppler color flow Study Info Complete two-dimensional, color flow and Doppler transthoracic echocardiogram is performed. Summary 1. Complete two-dimensional, color flow and Doppler transthoracic echocardiogram is performed. 2. Left ventricular chamber dimension is normal. 3. There is no increased left ventricular wall thickness. 4. Left ventricular systolic function is normal with a visually estimated ejection fraction of 55-60%. 5. Grade I diastolic dysfunction of the left ventricle (impaired relaxation pattern). 6. Right ventricular chamber dimension is normal. 7. Right ventricular systolic function is normal. 8. Suspect patent ovale evident (PFO) by color flow imaging. 9. There is no aortic valve stenosis with a peak velocity of 135 cm/s, mean gradient of 4 mmHg, and aortic valve area of 2.2 cm2. 10. PASP cannot be 11. estimated because of insufficient TR jet. Recommendations * Consider bubble study if suspected PFO needs to be evaluated further clinically. Left Ventricle Left ventricular chamber dimension is normal. There is no increased left ventricular wall thickness. Left ventricular systolic function is normal with a visually estimated ejection fraction of 55-60%. Grade I diastolic dysfunction of the left ventricle (impaired relaxation pattern). Right Ventricle Right ventricular chamber dimension is normal. Right ventricular systolic function is normal. Left Atria Left atrial chamber dimension is normal. Right Atria Right atrial chamber dimension is normal. Atrial Septum Suspect patent ovale evident (PFO) by color flow imaging. Aortic Valve The aortic valve is trileaflet. There is no aortic valve regurgitation. There is no aortic valve stenosis with a peak velocity of 135 cm/s, mean gradient of 4 mmHg, and aortic valve area of 2.2 cm2. Pulmonic Valve There is no pulmonic regurgitation. Mitral Valve The mitral valve has normal leaflets. There is no mitral valve stenosis. There is no mitral valve regurgitation. Tricuspid Valve There is no tricuspid valve regurgitation. PASP cannot be estimated because of insufficient TR jet. Pericardium/Pleural The pericardium appears normal. There is no pericardial effusion. Inferior Vena Cava Normal inferior vena cava with >50% collapse upon inspiration consistent with normal right atrial pressure, 3 mmHg. Aorta The aortic root size at the sinus of Valsalva is normal. The prox ascending aorta size is normal. Left Ventricular Outflow Tract Name Value Normal LVOT 2D LVOT Diameter 1.8 cm LVOT Doppler LVOT Peak Gradient 5 mmHg LVOT Mean Gradient 3 mmHg LVOT VTI 26 cm LVOT VTI/AV VTI Ratio 0.8 LVOT Stroke Volume 68 ml LVOT CO 12.5 l/min LVOT CI 7.6 l/min/m2 Pulmonic Valve Name Value Normal PV Doppler PV Peak Gradient 5 mmHg Mitral Valve Name Value Normal MV Doppler MV Decel Canadian 359 cm/s2 MV PHT 75 ms MV Area (PHT) 2.9 cm2 4.0-5.0 MV Diastolic Function MV E Peak Velocity 93 cm/s MV A Peak Velocity 113 cm/s MV E/A 0.8 MV Decel Time 259 ms MV Annular TDI MV E/e' (Septal) 15.9 <=8.0 MV E/e' (Lateral) 12.4 <=8.0 MV E/e' (Average) 14.2 Tricuspid Valve Name Value Normal Estimated PAP/RSVP RA Pressure 3 mmHg <=5 Aorta Name Value Normal Ascending Aorta Ao Root Diameter (2D) 2.8 cm Ao Root Diam Index (2D) 1.7 cm/m2 Aortic Valve Name Value Normal AV Doppler AV Peak Velocity 135 cm/s AV Peak Gradient 7 mmHg AV Mean Gradient 4 mmHg AV VTI 31 cm AV Area (Cont Eq VTI) 2.2 cm2 >=3.0 AV Area (Cont Eq Ferny) 2.2 cm2 AV Regurgitation 2D LVOT Area 2.6 cm2 Ventricles Name Value Normal LV Dimensions 2D/MM IVS Diastolic Thickness (2D) 0.7 cm 0.6-1.0 LVID Diastole (2D) 4.3 cm 3.8-5.2 LVIW Diastolic Thickness (2D) 0.7 cm 0.6-0.9 LVID Systole (2D) 3.2 cm 2.2-3.5 LVOT Diameter 1.8 cm LV Mass (2D Cubed) 85.12 g 67.00-162.00 LV Mass Index (2D Cubed) 52 g/m2 43-95 Relative Wall Thickness (2D) 0.33 LV Fractional Shortening/Ejection Fraction 2D/MM LV Fractional Shortening (2D) 25 % 27-45 LV EF (2D Tefernie) 50 % 54-74 LV Diastolic Volume (4C MOD) 58 ml LV EF (4C MOD) 59 % LV Diastolic Length (4C) 6.8 cm LV Systolic Length (4C) 5.7 cm LV Stroke Volume (4C MOD) 35 ml Atria Name Value Normal LA Dimensions LA Dimension (2D) 4.0 cm 2.7-3.8 LA Dimen Index (2D) 2.5 cm/m2 LA Volume (4C A-L) 39 ml RA Dimensions RA Area (4C) 11.9 cm2 <=18.0 Report Signatures
== END 2024-05-29 08:50 | disposition home or self-care (01) ==
LOC: ANHCARD 08:51
PROVIDERS: PCP Nurse Practitioner Adult Health; Visit Provider Nurse Practitioner Adult Health
DX: Q96.9 Turner's syndrome, unspecified (principal); I51.89 Other ill-defined heart diseases
CPT/HCPCS: 93306

== ENCOUNTER 2024-06-03 16:04 | Outpatient (CLI) | payer OTHER, SELFPAY ==
--- NOTE | ~2024-06-03 | MM_ITS ---
EXAMINATION: MM screening abel BI w rajiv HISTORY: Screening TECHNIQUE: Craniocaudal and mediolateral oblique 3-D tomosynthesis images were obtained and synthetic 2-D images were generated. CAD analysis was submitted and interpreted. COMPARISON: Comparison to multiple prior studies sequentially, with oldest reviewed study dated 06/2027. BREAST PARENCHYMAL COMPOSITION: Dense: The breasts are extremely dense, which lowers the sensitivity of mammography. FINDINGS: The left breast is stable without evidence for malignancy. There is a possible new right pe riareolar mass. IMPRESSION: 1. Possible new right periareolar mass. 2. Additional mammographic views and possible breast ultrasound are recommended. BI-RADS Category 0: Incomplete: Needs additional imaging evaluation. Reviewed, dictated and finalized at location B. L SELECTOR IMPRESSION: 1. Possible new right periareolar mass. 2. Additional mammographic views and possible breast ultrasound are recommended . BI-RADS Category 0: Incomplete: Needs additional imaging evaluation.
== END 2024-06-03 16:05 | disposition home or self-care (01) ==
LOC: ANHIMG 16:06
PROVIDERS: PCP Nurse Practitioner Adult Health; Visit Provider Obstetrics & Gynecology
DX: Z12.31 Encounter for screening mammogram for malignant neoplasm of breast (principal); R92.8 Other abnormal and inconclusive findings on diagnostic imaging of breast
CPT/HCPCS: 77063; 77067

== ENCOUNTER 2024-06-16 08:20 | Outpatient (CLI) | payer OTHER, SELFPAY ==
--- NOTE | 2024-06-16 08:50 | ECHO_ITS ---
Patient Info Name: Nidhi Martines Age: 63 years : 1960 Gender: Female Ht: 48 in Wt: 130 lbs BSA: 1.46 m2 HR: 45 bpm BP: 116 / 62 mmHg Heart Rhythm: Sinus Rhythm Technical Quality: Fair Exam Date: 06/16/2024 8:53 AM Exam Location: Echo Lab Patient Status: Outpatient Admit Date: 06/16/2024 Staff Ordering Physician: Itzel Suarez APRN Proof Coin Collector: Diane Osorio RDCS Attending Provider: Itzel Suarez APRN Referring Physician: Erick ROBERTO; Exam Type: CA echo dop bubble study w con Study Info Indications - abnormal findings on diagnostic images of heart Complete two-dimentional, color flow and Doppler transthoracic echocardiogram is performed with agitated saline and with contrast to opacify the left ventricle and to improve the delineation of the left ventricle endocardial borders. Contrast/Agitated Saline Contrast/Ag. Saline: Agitated Saline Amount: 20.00 ml New IV Access: Left Site Condition: IV removed Contrast/Ag. Saline: Definity Amount: 2.00 ml Administered By: Diane Osorio RDCS Existing IV Access: Yes New IV Access: Left Site Condition: IV removed Summary 1. The left ventricular function was normal at 60% with normal wall motion with normal wall thickness. 2. There is evidence of diastolic dysfunction with increased E to E prime ratio of 15. 3. The aortic and mitral valves are normal. 4. Minimal tricuspid regurg with normal right side pressure. 5. Left atrium size is normal as left atrial volume index. 6. No pericardial effusion. Recommendations * Study was done with and without Valsalva and showed no crossover of bubbles from the right left side. Left Ventricle Left ventricular chamber dimension is normal. Left ventricular systolic function is normal, estimated at 60-65%. There is no increased left ventricular wall thickness. The left ventricular diastolic function is grade II diastolic dysfunction. Right Ventricle Right ventricular chamber dimension is normal. Right ventricular systolic function is normal. Left Atria Left atrial chamber dimension is normal. Right Atria Right atrial chamber dimension is normal. Aortic Valve The aortic valve is trileaflet. There is no aortic valve stenosis. There is no aortic valve regurgitation. Mitral Valve The mitral valve has normal leaflets. There is no mitral valve regurgitation. Tricuspid Valve The tricuspid valve leaflets are normal. There is no significant tricuspid valve stenosis. There is trace tricuspid valve regurgitation. Pericardium/Pleural There is no pericardial effusion. Aorta The aortic root size at the sinus of Valsalva is normal. Left Ventricular Outflow Tract Name Value Normal LVOT 2D LVOT Diameter 2.0 cm LVOT Doppler LVOT Peak Gradient 5 mmHg LVOT Mean Gradient 3 mmHg LVOT VTI 22 cm LVOT VTI/AV VTI Ratio 0.7 LVOT Stroke Volume 65 ml LVOT CO 4.6 l/min LVOT CI 3.2 l/min/m2 Pulmonic Valve Name Value Normal RVOT Doppler RVOT Peak Gradient 4 mmHg PV Doppler PV Peak Gradient 5 mmHg Mitral Valve Name Value Normal MV Doppler MV Decel Mccracken 435 cm/s2 MV PHT 60 ms MV Area (PHT) 3.7 cm2 4.0-5.0 MV Diastolic Function MV E Peak Velocity 89 cm/s MV A Peak Velocity 110 cm/s MV E/A 0.8 MV Decel Time 205 ms MV Annular TDI MV E/e' (Septal) 15.7 <=8.0 MV E/e' (Lateral) 10.3 <=8.0 MV E/e' (Average) 13.0 Tricuspid Valve Name Value Normal TV Regurgitation Doppler TR Peak Velocity 174 cm/s TR Peak Gradient 12 mmHg Estimated PAP/RSVP RA Pressure 10 mmHg <=5 PA Systolic Pressure 22 mmHg <36 RV Systolic Pressure 22 mmHg <36 Aorta Name Value Normal Ascending Aorta Ao Root Diameter (MM) 2.8 cm Ao Root Diam Index (MM) 1.9 cm/m2 Aortic Valve Name Value Normal AV Doppler AV Peak Velocity 166 cm/s AV Peak Gradient 11 mmHg AV Mean Gradient 5 mmHg AV VTI 29 cm AV Area (Cont Eq VTI) 2.2 cm2 >=3.0 AV Area (Cont Eq Ferny) 2.1 cm2 AV Regurgitation 2D LVOT Area 3.0 cm2 Ventricles Name Value Normal LV Dimensions 2D/MM IVS Diastolic Thickness (2D) 1.1 cm 0.6-1.0 LVID Diastole (2D) 4.1 cm 3.8-5.2 LVIW Diastolic Thickness (2D) 1.1 cm 0.6-0.9 LVID Systole (2D) 2.6 cm 2.2-3.5 LVOT Diameter 2.0 cm LV Mass (2D Cubed) 156.89 g 67.00-162.00 LV Mass Index (2D Cubed) 108 g/m2 43-95 Relative Wall Thickness (2D) 0.55 LV Fractional Shortening/Ejection Fraction 2D/MM LV Fractional Shortening (2D) 36 % 27-45 LV EF (2D Teicholz) 66 % 54-74 LV Diastolic Volume (4C MOD) 50 ml LV EF (4C MOD) 73 % LV Diastolic Volume (2C MOD) 41 ml LV EF (2C MOD) 73 % LV Diastolic Volume (BP MOD) 45 ml 46-106 LV Diastolic Volume Index (BP MOD) 31 ml/m2 29-61 LV Systolic Volume (BP MOD) 12 ml 14-42 LV Systolic Volume Index (BP MOD) 8 ml/m2 8-24 LV EF (BP MOD) 73 % 54-74 LV Diastolic Length (4C) 6.6 cm LV Systolic Length (4C) 4.6 cm LV Stroke Volume (4C MOD) 36 ml Atria Name Value Normal LA Dimensions LA Dimension (MM) 4.0 cm 2.7-3.8 LA Volume (4C A-L) 36 ml LA Volume (BP A-L) 42 ml RA Dimensions RA Area (4C) 8.1 cm2 <=18.0 Report Signatures Amended by Steve Aguilar MD on 06/17/2024 11:35
[2024-06-16] MEDS: PERFLUTREN LIPID MICROSPHERES 1.5 ML VIAL DILUTED TO 10 ML TOTAL VOLUME IV PUSH (09:30)
--- NOTE | 2024-06-16 10:48 | IVDEFINITY ---
Prior to administration of IV Definity the patient was educated on the risks and benefits of the imaging enhancing agent including potential adverse side effects. The patient verbalized understanding. Allergies were verified. No exclusion criteria were identified and at least one of the following inclusion criteria were met: 1) physician request, 2) patient technically difficult to image (per the [place] [employer] Echocardi[employer] guidelines of two or more segments not discernable within the apical view), or 3) questionable left ventricular function. ?
== END 2024-06-16 08:21 | disposition home or self-care (01) ==
LOC: ANHCARD 08:21
PROVIDERS: PCP Nurse Practitioner Adult Health; Visit Provider Nurse Practitioner Adult Health
DX: R93.1 Abnormal findings on diagnostic imaging of heart and coronary circulation (principal); I51.89 Other ill-defined heart diseases; I36.1 Nonrheumatic tricuspid (valve) insufficiency
CPT/HCPCS: 96375; C8929; Q9957

== ENCOUNTER 2024-06-25 13:07 | Outpatient (CLI) | payer OTHER, SELFPAY ==
--- NOTE | ~2024-06-25 | DEXA_ITS ---
Bone Density Report Name: IRINA VASQUEZ Age: 63 Sex: Female Ethnicity: White Date of : 1960 Indication: postmenopausal; screening for osteoporosis; Referring Provider: HEYDI CEJA Study: Bone densitometry was performed. Exam Date: June 25, 2024 Accession number: [id number] Bone Density: Region BMD T-score Z-score Classification Femoral Neck (Left) 0.972 1.1 2.5 Normal Total Hip (Left) 1.042 0.8 1.8 Normal Femoral Neck (Right) 0.773 -0.7 0.7 Normal Total Hip (Right) 1.044 0.8 1.9 Normal Total Hip Mean 1.043 0.8 1.9 Normal World Health Organization criteria for BMD impression classify patients as: Normal (T-score at or above -1.0), Osteopenia (T-score between -1.0 and -2.5), or Osteoporosis (T-score at or below -2.5). 10-year Fracture Risk: FRAX not reported because: All T-scores for Spine Total, Hip Total, Femoral Neck at or above -1.0 Clinical Information Provided by Patient: Has used the following medications: Vitamin D Patient maximum height was 56 Menopause Age: 47 Drinks caffeinated beverages Onset of menses at age 29 Number of children 0 Impression: The patient has normal bone mass. Discussion: BONE DENSITY IS ABOVE THE MINIMUM DESIRABLE LEVEL AT ALL SKELETAL SITES TESTED. This patient?s bone mineral density is above the minimum desirable level (T-score -1.0 or better) at all sites measured. The patient should follow a healthful lifestyle (good nutrition with adequate calcium and vitamin D, and appropriate weight-bearing exercise). Follow-Up: Consider repeating this study in 5 years or sooner if there is some new clinical indication. Reported by: VANCE on 06/25/2024 1:48:00 PM. Reviewed, dictated and finalized at location ABartolo LOPEZ
--- NOTE | 2024-06-25 14:47 | MMUS_ITS ---
Corrected Report Order # Associated 06/27/2024 SLJ This report was recreated on 06/27/2024. Original report was signed by FACTURED BUILDINGS REPAIRER. EXAMINATION: MM diagnostic abel RT w rajiv, US breast RT complete HISTORY: Follow-up right breast mass TECHNIQUE: Additional 3-D tomosynthesis images of the right breast were performed and synthetic 2-D images were generated. CAD analysis was submitted and interpreted. High resolution complete right breast ultrasound was performed. COMPARISON: Comparison to multiple prior studies sequentially, with oldest reviewed study dated 01/23/2019. BREAST PARENCHYMAL COMPOSITION: Dense: The breasts are extremely dense, which lowers the sensitivity of mammography. FINDINGS: MAMMOGRAPHIC FINDINGS: No discrete mass or architectural distortion is identified with spot compression or mediolateral views. There are coarse right breast calcifications. No skin thickening or nipple inversion. ULTRASOUND: Complete US of all 4 quadrants of the right breast/s and retroareolar region was reviewed. Normal heterogeneous echotexture without focal solid or cystic mass. There are a few hypoechoic masses with posterior shadowing, consistent with internal and axial calcifications corresponding to benign calcifications seen on mammography. No suspicious sonographic abnormalities to suggest malignancy. IMPRESSION: 1. No evidence for malignancy in the right breast. 2. Routine yearly screening mammogram and regular clinical breast examination are recommended. BI-RADS Category 2: Benign finding(s). FACTURED BUILDINGS REPAIRER MTDD
== END 2024-06-25 13:08 | disposition home or self-care (01) ==
LOC: ANHIMG 13:08
PROVIDERS: PCP Nurse Practitioner Adult Health; Visit Provider Obstetrics & Gynecology
DX: R92.8 Other abnormal and inconclusive findings on diagnostic imaging of breast (principal); Z78.0 Asymptomatic menopausal state
CPT/HCPCS: 76641; 77061; 77065; 77080; G0279

== ENCOUNTER 2024-07-01 09:39 | Outpatient (CLI) | payer OTHER, SELFPAY ==
[2024-07-01 10:59] LABS: Free T4 Free Thyroxine 1.46 ng/dL (0.78-2.19)
[2024-07-01 11:59] LABS: Thyroid Stimulating Hormone 0.445 uIU/mL (0.465-4.680)
== END 2024-07-01 09:40 | disposition home or self-care (01) ==
LOC: ANHLAB 09:43
PROVIDERS: PCP Nurse Practitioner Adult Health; Visit Provider Internal Medicine Endocrinology, Diabetes & Metabolism
DX: E03.9 Hypothyroidism, unspecified (principal)
CPT/HCPCS: 36415; 84439; 84443

== ENCOUNTER 2024-08-13 09:45 | Outpatient (CLI) | payer OTHER, SELFPAY ==
--- OUTSIDE RECORDS SUMMARY | 2024-08-13 10:47 | XMS_ITS ---
Author Organization [facility] Address [address] [address] [address] Care Team Providers Care Linux Architect Name Role Phone Jaqui Lopez Unavailable Unav ailable Allergies No Known Allergies REASON FOR VISIT [place] [place] Medications Medication SIG (Take, Route, Frequency, Duration) Notes Start Date End Date Status metFORMIN HCl ER 500 MG TAKE 2 TABLETS BY MOUTH DAILY WITH EVENING MEALS Oral 11/10/2013 Active Sinemet 500 /200 mg Once daily in evening Oral *Pick strength-form from Medispan for eRX* Active Tamoxifen Citrate 20 MG take 1 tablet (20 mg) by oral route once daily Oral 1 Active Vitamin D 4000 IU DAILY *Pick strength-form from Medispan for eRX* Active Encounters Encounter Location Date Provider Diagnosis [facility] [address] [address] [place] [address] 04/08/2023 zzzzProvider zzzzMigration Plan Of Treatment No Information Progress Notes * Nidhi VASQUEZ MDOB:[birth year] (63 yo F)Acc No.[id number]:04/08/2023 Patient: Frannie Nihdi CULP :1960 A ge:62 Y S ex:Female Address:[address] [place] [address], [id number] Subjective: * Chief Complaints: * E MR-Raphael * 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 B rother: Sibling-Brother Notes: 2 BOTH ARE HEALTHY . S ister: Sibling-Sister Notes: 1 HEALTHY . 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 * Medications: T akingVitamin D 4000 IU DAILY , Notes to Pharmacist: *Pick strength-form from Medispan for eRX*Sinemet 500 /200 mg Once daily in evening Oral , Notes to Pharmacist: *Pick strength-form from Medispan for eRX*metFORMIN HCl ER 500 MG Tablet Extended Release 24 Hour TAKE 2 TABLETS BY MOUTH DAILY WITH EVENING MEALS Oral Tamoxifen Citrate 20 MG Tablet take 1 tablet (20 mg) by oral route once daily Oral 1 Taking Vitamin D 4000 IU DAILY , Notes to Pharmacist: *Pick strength-form from Medispan for eRX*Taking Sinemet 500 /200 mg Once daily in evening Oral , Notes to Pharmacist: *Pick strength- form from Medispan for eRX*Taking metFORMIN HCl ER 500 MG Tablet Extended Release 24 Hour TAKE 2 TABLETS BY MOUTH DAILY WITH EVENING MEALS Oral Taking Tamoxifen Citrate 20 MG Tablet take 1 tablet (20 mg) by oral route once daily Oral 1 * Allergies: N .K.D.A.no[Allergies Verified] Objective: * Vitals: * Physical Examination: Assessment: Plan: * Treatment: * Procedure Codes: * * Date:
--- OUTSIDE RECORDS SUMMARY | 2024-08-13 10:47 | XMS_ITS | CONTINUITY OF CARE DOCUMENT ---
Author Name lv awan Address Unknown Organization [facility] Office Address [address] [place] [address] [address] [place] [address] Phone [phone] Care Team Providers Care Personnel Monitor Name Role Phone Steve Aguilar MD Unavailable [phone] Steve Aguilar MD Unavailable INSURANCE PROVIDERS Payer name Policy type / Coverage type [place] red [employer] party ID [employer] PPO Other [id number]
--- OUTSIDE RECORDS SUMMARY | 2024-08-13 10:47 | XMS_ITS | Referral Summary ---
Author Organization [facility] Address [address] [place] [address] Care Team Providers Care Epic Specialist Name Role Phone No, Physician Primary Care Provider [phone] Encounters Date Type Department Care Team Description 07/25/2024 Orders Only [facility] Cardiology [address] [place] [address] Itzel Suarez NP from Last 3 Months Allergies Active Allergy Reactions Criticality Noted Date Comments Exenatide Microspheres Unknown 02/24/2019 Morphine Sulfa (Sulfonamide Antibiotics) Swelling Medium 2009 Sulfanilamide Other (See comments) Reaction: Unknown, Tetracycline Other (See comments),Rash Reaction: Unknown, , Reaction: RASH, Tetracyclines Rash Medium 2009 Medications vit C-vit B-lufapj-sple-lutein (PRESERVISION LUTEIN) 226 mg-200 unit -5 mg-0.8 mg capsule 0 0 04/09/20 13 Active omeprazole (PriLOSEC) 10 mg capsule 10 mg. 0 03/15/20 12 Active Additional Information Patient not taking.Reported on 04/24/2022 atorvastatin (LIPITOR) 10 mg tablet take 1 tablet (10MG) by oral route every day 0 07/25/19 13 Active fenofibrate nanocrystallized (TRICOR) 48 mg tablet take 1 tablet (48MG) by oral route every day 0 07/25/19 13 Active Additional Information Patient not taking.Reported on 04/24/2022 cholecalciferol (VITAMIN D3) 4,000 unit capsule daily 0 0 10/19/19 16 Active Additional Information Patient taking differently: 5,000 Units, Reported on 04/24/2022 vitamin E 400 unit capsule take 1 daily 0 0 10/19/19 16 Active Additional Information Patient taking differently: 1,000 Units, Reported on 04/24/2022 dulaglutide (TRULICITY) 0.75 mg/0.5 mL pen injector weekly on Sunday 0 0 10/19/19 16 Active rOPINIRole (REQUIP) 0.25 mg tablet 2 tabs nightly 0 0 10/19/19 16 Active Additional Information Patient not taking.Reported on 04/24/2022 meloxicam (MOBIC) 15 mg tablet take 1 tablet by oral route every day 0 0 10/19/19 16 Active Additional Information Patient not taking.Reported on 04/24/2022 vitamin A 8,000 unit capsule take 1 capsule by oral route every day 0 0 10/19/19 16 Active metFORMIN (GLUMETZA) 500 mg 24 hr tablet 2 tabs nightly with a meal 0 0 10/19/19 16 Active levothyroxine (SYNTHROID, LEVOTHROID) 125 mcg tablet take 1 tablet by oral route every day 0 0 10/19/19 16 Active Additional Information Patient taking differently: 112 mcg oral, Reported on 04/24/2022 omega-3 fatty acids (FISH OIL CONCENTRATE) 1,000 mg capsule 1 capsule BID 0 0 10/19/19 16 Active Additional Information Patient not taking.Reported on 04/24/2022 calcium-vitamin D3-vitamin K (CALCIUM FOR WOMEN) 500-100-40 mg-unit-mcg tablet,chewable 1 tab BID 0 0 10/19/19 16 Active Additional Information Patient not taking.Reported on 04/24/2022 magnesium oxide (MAG-OX) 250 mg (150.8 mg elemental) tabletIndications:hy pomagnesemia 250 mg daily Acti ve cranberry 400 mg capsule Take by mouth Active lisinopril (PRINIVIL,ZESTRIL) 2.5 mg tablet Take 2.5 mg by mouth daily Active valsartan-hydroCHLOR Othiazide (DIOVAN-HCT) 160-12.5 mg per tabletIndications:hy pertension Take 1 tablet by mouth daily Active pramipexole (MIRAPEX) 0.5 mg tabletIndications:RL S (restless legs syndrome) TAKE 1 TABLET AT BEDTIME 90 tablet 09/11/19 20 Active Active Problems Problem Noted Date Diagnosed Date Travel advice encounter 08/28/2023 Bilateral primary osteoarthritis of knee 019 Assessment & Plan (03/02/2019 6:21 PM CDT): We discussed the risks, benefits and alternatives of treatment options for osteoarthritis of the knee. From least invasive to most invasive: The only thing to slow the progression of osteoarthritis is weight loss. For every pound lost 4 to 6 pounds of stress is relieved from the knee. Formal physical therapy to help with flexion, extension, mobility and strength. Unloading braces to unload the affected side. The possibility of TENs unit to control pain and swelling. Nonsteroidal anti-inflammatories with the potential of cardiac and GI upset. Steroid and Visco supplement injection. And eventual total knee arthroplasty. Right knee and left ankle are the worst. Steroid is injected there today. Physician directed exercises given. Post-traumatic osteoarthritis, left ankle and fo ot 03/02/2019 Assessment & Plan (03/02/2019 6:21 PM CDT): Retained hardware noted in the left ankle. Osteoarthritic changes at the distal fibular talar joint. Steroid is injected today. Consider foot and ankle specialist in the future if needed. Obesity (BMI 30-39.9) 03/02/2019 Assessment & Plan (03/02/2019 6:22 PM CDT): The only thing proven to slow the progression of osteoarthritis of the knee is weight loss. For every 1 lb lost, 4-6 lb of stress is relieved from the knee. ALAN (obstructive sleep apnea) 07/23/2018 Lumbar radiculopathy 05/22/2016 Diabetes mellitus 02/10/2015 Assessment & Plan (03/02/2019 6:18 PM CDT): Realizes that the steroid will elevate her blood glucose. Continue with steroid. 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 Overview (09/21/2016): Tympanosclerosis involving tympanic membrane and e Malignant neoplasm of breast 07/16/2012 Thoracic or lumbosacral neur itis or radiculitis, unspecified 03/25/2012 Personal history of primary malignant neoplasm o f breast 03/15/2012 Overview (09/20/2016): Hx of breast cancer Immunizations Immunization Administration Dates Next Due Hep A, Adult 10/31/2023,08/29/2023 Typhoid Inactivated 08/29/2023 Social History Tobacco Use Types Packs/Day Years Used Date Smoking Tobacco: Never Smokeless Tobacco: Never Tobacco Cessation:Counseling Given: Not Answered Alcohol Use Standard Drinks/Week Comments No 0 (1 standard drink = 0.6 oz pur e alcohol) Comments Unknown Sex and Gender Information Value Date Recorded Sex Assigned at Not on file 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 Gender Identity Not on file Sexual Orientation Not on file Last Filed Vital Signs Vital Sign Reading Time Taken Comments Blood Pressure 122/81 08/29/2023 10:56 AM CDT Pulse 80 08/29/2023 10:56 AM CDT Temperature 36.6 C (97.8 F) 08/29/2023 10:56 AM CDT Respiratory Rate - - Oxygen Saturation 98% 08/29/2023 10:56 AM CDT Inhaled Oxygen Concentration - - Weight 64.5 kg (142 lb 3.2 oz) 08/29/2023 10:56 AM CDT Height 142 cm (4' 7.91 ) 08/29/2023 10:56 AM CDT Body Mass Index 31.99 08/29/2023 10:56 AM CDT Plan of Treatment Not on file Procedures Procedure Name Priority Date/Time Associated Diagnosis Comments TRANSTHORACIC ECHO (TTE) COMPLETE W DOPPLER/CF Routine 06/16/2024 1:31 PM TODDLER TEACHER TRANSTHORACIC ECHO (TTE) COMPLETE W DOPPLER/CF Routine 05/29/2024 12:54 PM TODDLER TEACHER DIAGNOSTIC MAMMOGRAM BILATERAL W ELKIN Routine 04/15/2014 12:00 AM CDT from Last 3 Months or Most Recently Relevant to Health Maintenance Results * Transthoracic Echo (TTE) Complete W Doppler/CF (06/16/2024 1:31 PM TODDLER TEACHER) Anatomical Region Laterality Modality Ultrasound Itzel Suarez NP CV ECHO PROCEDURES Final Resul t * Transthoracic Echo (TTE) Complete W Doppler/CF (05/29/2024 12:54 PM TODDLER TEACHER) Anatomical Region Laterality Modality Ultrasound Itzel Suarez NP CV ECHO PROCEDURES Final Resul t * Diagnostic Mammogram Bilateral W Elkin (04/15/2014 12:00 AM CDT) Anatomical Region Laterality Modality Breast Bilateral Mammography 04/15/2014 4:26 PM CDT Narrative 04/15/2014 5:44 PM CDT Bilateral digital diagnostic mammogram with CAD and tomosynthesis HISTORY: 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 Physical exam by Dr. Neville serrano. Annual follow-up with no new complaints. FINDINGS: Standard 3 view diagnostic mammogram of both breasts was performed including full field tomosynthesis in the CC and MLO projections. Comparison is made with 04/09/2013, 04/01/2012, 03/15/2011, 09/12/2010, 03/28/2010, 09/27/2009, 03/05/2009, 03/24/2009, 02/12/2009, 01/11/2009, 06/20/2006 and 02/05/2001. Breast tissue remains heterogeneously dense which lowers the sensitivity of mammography. Postlumpectomy changes in the left breast persist. Extensive dystrophic calcifications in the breasts are again seen primarily on the left along with some rim calcified lesions consistent with multiple oil cysts. No new suspicious findings. IMPRESSION: BILATERAL BREASTS: BI-RADS 2: Benign 1. Annual mammography is suggested. The results from this study have been communicated to the patient. Overall assessment: Benign. LMO/tab Radiologist: AHSAN MORRELL MD Attending: RUBEN BAH M.D. Requesting: RUBEN BAH M.D. 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 Physical exam by Dr. Neville serrano. Annual follow-up with no new complaints. FINDINGS: Standard 3 view diagnostic mammogram of both breasts was performed including full field tomosynthesis in the CC and MLO projections. Comparison is made with 04/09/2013, 04/01/2012, 03/15/2011, 09/12/2010, 03/28/2010, 09/27/2009, 03/05/2009, 03/24/2009, 02/12/2009, 01/11/2009, 06/20/2006 and 02/05/2001. Breast tissue remains heterogeneously dense which lowers the sensitivity of mammography. Postlumpectomy changes in the left breast persist. Extensive dystrophic calcifications in the breasts are again seen primarily on the left along with some rim calcified lesions consistent with multiple oil cysts. No new suspicious findings. IMPRESSION: BILATERAL BREASTS: BI-RADS 2: Benign 1. Annual mammography is suggested. The results from this study have been communicated to the patient. Overall assessment: Benign. LMO/tab Radiologist: AHSAN MORRELL MD Attending: RUBEN BAH M.D. Requesting: RUBEN BAH M.D. Requesting Requesting ID: [id number] Attending Attending ID: [id number] Completed Time: 04/15/2014 4:26 PM Dictated Time: 04/15/2014 4:46 PM Transcribed Time: 04/15/2014 4:53 PM Signed by: AHSAN MORRELL MD on 04/15/2014 5:44 PM Report To 1 ID: Report To 1 Name: , Report To 1 FAX: Report To 2 ID: Report To 2 Name: , Report To 2 FAX: Report To 3 ID: Report To 3 Name: , Report To 3 FAX: NextGen Order #: Historical Provider MD [facility] MAMMO PROCEDURES Reyna l Result from Last 3 Months or Most Recently Relevant to Health Maintenance Insurance [facility] [place] [address] [place] [id number] [facility] [address] Care Teams Epic Specialist Relationship Specialty Start Date End Date No, Physician PCP - General 12/11/23
--- OUTSIDE RECORDS SUMMARY | 2024-08-13 10:47 | XMS_ITS | Encounter Summary ---
Author Organization [facility] Address [address] [place] [address] Phone Care Team Providers Care Office Rental Clerk Name Role Phone No, Physician Primary Care Provider [phone] Encounter Details Date Type Department Care Team (Latest Contact Info) Description 05/08/2022 Orders Only [facility], Provider Social History Tobacco Use Types Packs/Day Years Used Date Smoking Tobacco: Never Smokeless Tobacco: Never Alcohol Use Standard Drinks/Week Comments No 0 (1 standard drink = 0.6 oz pur e alcohol) Comments Unknown Sex and Gender Information Value Date Recorded Sex Assigned at Not on file 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 Gender Identity Not on file Sexual Orientation Not on file documented as of this encounter Plan of Treatment Not on file documented as of this encounter Procedures Procedure Name Priority Date/Time Associated Diagnosis Comments SLEEP LAB/STUDY - RESULT 05/08/2022 5:10 PM MEDICAL FRONT DESK SPECIALIST documented in this encounter Results * SLEEP LAB/STUDY - RESULT (05/08/2022 5:10 PM MEDICAL FRONT DESK SPECIALIST) us Provider Scanning Final Result documented in this encounter Visit Diagnoses Not on filedocumented in this encounter Care Teams Office Rental Clerk Relationship Specialty Start Date End Date No, Physician PCP - General 12/11/23 documented as of this encounter
--- OUTSIDE RECORDS SUMMARY | 2024-08-13 10:47 | XMS_ITS | Continuity of Care Document ---
Author Organization [facility] Address [address] [place] [address] Phone Care Team Providers Care Power Press Tender Name Role Phone Juliet DE EJSUS, [place] Unavailable Unavailable Procedures Procedure Date LUMBAR SPINE CT W CONTRAST <content ID='ProcedureDescri ption_1' xmlns='urn:hl7-org:[email or web address]'>Myelography Lumbar Inject, Incl Radiological S&I; Lumbosacral</content> SURGICAL TRAY LOW OSMOLAR CONTRAST (200 TO 299 MG IODI NE) INJECTION ANESTHETIC AND/OR STERIOD, TRANS EPIDURAL LUMB OR SACRAL,, SINGLE LEVE SURGICAL TRAY LOW OSMOLAR CONTRAST (200 TO 299 MG IODI NE) DEPO-MEDROL 80MG INJECTION ANESTHETIC AND/OR STERIOD, TRANS EPIDURAL LUMB OR SACRAL,, SINGLE LEVE SURGICAL TRAY LOW OSMOLAR CONTRAST (200 TO 299 MG IODI NE) DEPO-MEDROL 80MG LUMBAR SPINE CT W CONTRAST <content ID='ProcedureDescri ption_13' xmlns='urn:[email or web address]-org:v3'>Myelography Lumbar Inject, Incl Radiological S&I; Lumbosacral</content> SURGICAL TRAY LOW OSMOLAR CONTRAST (200 TO 299 MG IODI NE) Advance Directives Directive Yes / No Effective Date File Name No Information Encounters Encounter Description Practice Location Reason(s) For Visit Diagnoses Date Provider Providers Copied on Encounter [facility], [address], [place], [place], [id number], tel:[phone] [facility] No Information Bryanjuan Delgadilloew. [address], [place], [place], [address], . tel:[phone] Referring Provider: Moncho Singh, [address], [place], [place], [facility]. tel:[phone] [facility], [address], [place], [place], [address], tel:[phone] [facility] No Information Melody Fontenot. [address] , [place], [place], [address], . tel:[phone] Referring Provider: Moncho Singh, [address], [place], [place], [facility]. tel:[phone] [facility], [address], [place], [place], [address], tel:[phone] [facility] No Information Melody Fontenot. [address], [place], [place], [address], [place]. tel:[phone] Referring Provider: Moncho Singh, [address], [place], [address]. tel:[phone] [facility], [address], [place], [place], [address], tel:[phone] [facility] No Information Blas Arroyo. [address], [place], [place], [address], [place]. tel:[phone] Referring Provider: [address], [place], [place], [facility]. tel:[phone] Family History Family Member Type Diagnosis Age At Onset No Information Payers Payer name Insurance type Covered democrat ID Authoriza tion(s) [employer] OPEN ACCESS I II III CI [id number] SOI Social History Type Description Quantity Date Captured Comments Sex Female Smoking Status No Information Chief Complaint And Reason For Visit No Information Reason For Referral Reason For Referral No Information History Of Present Illness Encounter Date Complaint History Of Prese nt Illness No Information Functional Status Date Functional Assessmen t No Information Instructions Date Instruction Additional Infor mation No Information Assessments Type Assessment Date No Information Patient Care Teams Name Effective Dates (start - stop) Status Members No Information
--- OUTSIDE RECORDS SUMMARY | 2024-08-13 10:47 | XMS_ITS | Clinical Summary ---
[facility] Address [address] [place] [address] Care Team Providers Care Brim Plater Name Role Phone No, Physician Primary Care Provider [phone] Allergies Active Allergy Reactions Criticality Noted Date Comments Exenatide Microspheres Unknown 02/24/2019 Morphine Sulfa (Sulfonamide Antibiotics) Swelling Medium 2009 Sulfanilamide Other (See comments) Reaction: Unknown, Tetracycline Other (See comments),Rash Reaction: Unknown, , Reaction: RASH, Tetracyclines Rash Medium 2009 Medications vit C-vit P-cjlbxv-jmnw-lutein (PRESERVISION LUTEIN) 226 mg-200 unit -5 mg-0.8 [...] 03/15/2012 Overview (09/20/2016): Hx of breast cancer Encounters Date Type Department Care Team Description 07/25/2024 Orders Only [facility] Cardiology [address] [place] [id number] Itzel Suarez NP from Last 3 Months Immunizations Immunization Administration Dates Next Due Hep A, Adult 10/31/2023,08/29/2023 Typhoid Inactivated 08/29/2023 Surgical History Surgery Date Site/Laterality Comments OTHER SURGICAL HISTORY 2009 Left Cancer, breast: lumpectomy, XRT OTHER SURGICAL HISTORY 2009 Left Cancer, breast: lumpectomy, XRT Medical History Medical History Date Comments Arthritis Arthritis Hx Other Medical turners syndrom e Disorder of thyroid Thyroid dise ase Hypertension Hypertension Heart valve disease Cardiac valv ular disease Malignant neoplasm of female breast (HCC) 2008 Cancer, breast; Laterality: left Malignant neoplasm of female breast (HCC) 2008 Cancer, breast; Laterality: left Family History Medical History Relation Name Comments Sleep apnea Brother Breast cancer Cousin 2 Coronary artery disease Father Diabetes Father Breast cancer Father's Sister 2 Hearing loss Mother Hypertension Mother Neuropathy Mother Prostate cancer Mother's Brother 2 Breast cancer Mother's Sister 1 1 Uterine cancer Mother's Sister 1 1 Breast cancer Mother's Sister 2 2 Stomach cancer Paternal Grandmother Hearing loss Sister Relation Name Status Comments Brother Cousin 1 Alive Cousin 2 Father Father's Sister 1 Alive Father's Sister 2 Mother Mother's Brother 1 Alive Mother's Brother 2 Mother's Sister 1 1 Alive Mother's Sister 2 2 (Age 58) Paternal Grandmother Sister Social History Tobacco Use Types Packs/Day Years Used Date Smoking Tobacco: Never Smokeless Tobacco: Never Tobacco Cessation:Counseling Given: Not Answered Alcohol Use Standard Drinks/Week Comments No 0 (1 standard drink = 0.6 oz pur e alcohol) Comments Unknown Sex and Gender Information Value Date Recorded Sex Assigned at Not on file 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 Gender Identity Not on file Sexual Orientation Not on file Obstetrics History Last Filed Vital Signs Vital Sign Reading [...] 08/29/2023 10:56 AM CDT Plan of Treatment Health Maintenance Due Date Last Done Comments Albumin Creatinine Ratio, Urine 1962 Cervical Cancer Screening 1962 Colon Cancer Screening-Colonoscopy 1962 Depression Screening 1962 Hemoglobin A1C 1962 Hepatitis C Screening 1962 eGFR 1962 Dilated Eye Exam 1962 Foot Exam 1962 Lipid Panel 1962 DTaP/Tdap/Td Vaccine (1 - Tdap) 1973 Hepatitis B Screening 1980 Regular Well Visit/Exam 18-64 1980 Zoster Vaccine (1 of 2) 2012 Pneumococcal vaccine <65 (2 of 2 - PCV) 06/22/2021 06/22/2020 Breast Cancer Screening-Mammogram 02/03/2022 02/03/2021, 04/15/2014, 04/09/2013 Covid-19 Vaccine (2023-2 5 season) 2024 10/25/2021, 03/25/2021, 09/15/2020, Additional history exists Influenza Vaccine (#1) 2024 , 03/29/2021, 03/31/2020, Additional history exists Procedures Procedure Name Priority Date/Time Associated Diagnosis Comments TRANSTHORACIC ECHO (TTE) COMPLETE W DOPPLER/CF Routine 06/16/2024 1:31 PM ROLL SHOP SUPERVISOR TRANSTHORACIC ECHO (TTE) COMPLETE W DOPPLER/CF Routine 05/29/2024 12:54 PM ROLL SHOP SUPERVISOR DIAGNOSTIC MAMMOGRAM BILATERAL W ELKIN Routine 04/15/2014 12:00 AM CDT from Last 3 Months or Most Recently Relevant to Health Maintenance Results * Transthoracic Echo (TTE) Complete W Doppler/CF (06/16/2024 1:31 PM ROLL SHOP SUPERVISOR) Anatomical Region Laterality Modality Ultrasound Itzel Suarez NP CV ECHO PROCEDURES Final Resul t * Transthoracic Echo (TTE) Complete W Doppler/CF (05/29/2024 12:54 PM ROLL SHOP SUPERVISOR) Anatomical Region Laterality Modality Ultrasound Itzel Suarez [...] Requesting: RUBEN BAH M.D. Requesting Requesting ID: [id number] Attending Attending ID: [id number] Completed Time: 04/15/2014 4:26 PM Dictated Time: [...] LMO/tab Radiologist: AHSAN MORRELL MD Attending: RUBEN BHA M.D. Requesting: RUBEN BAH M.D. Requesting Requesting ID: [id number] Attending Attending ID: [id number] Completed Time: 04/15/2014 4:26 PM Dictated Time: [...] Most Recently Relevant to [place] [address] [facility] CHO[facility] PLUS [facility]/PPO Address[address] [address] [place] [address] [facility] [id number] [facility] [id number] Member Subscriber Plan / Payer (Ef fective 2020-Present) Name:Nidhi Martines Member ID:[id number] Relation to Subscriber:Self Name:Nidhi Martines Subscriber ID:[id number] Payer ID:[id number] Type:Lorena Gax[employer]ola HMO/PPO Address: [address] [place] [phone] Care Teams Brim Plater Relationship Specialty Start Date End Date No, Physician PCP - General 12/11/23
--- OUTSIDE RECORDS SUMMARY | 2024-08-13 10:48 | XMS_ITS ---
[facility] Organization [facility] Address [address] [facility] [address] [place] [address] Care Team Providers Care Nc Manager Name Role Phone zzzzMigration, zzzzProvider Unavailable Unav ailable REASON FOR VISIT EMR-Raphael Encounters Encounter Location Date Provider Diagnosis [facility] [address] [facility] [address] [place] [address] 04/07/2023 zzzzProvider zzzzMigration Plan Of Treatment Medication Medication Name Sig Start Date Stop Date Notes Synthroid 150 mcg TAKE ONE TABLET BY MOUTH EVERY DAY . Oral for 12/09/2012 07/07/2013 Diovan 80 mg TAKE 1 TABLET BY MOUTH EVERY DAY Oral for 04/17/2012 05/17/2012 Triamcinolone Acetonide 0.1% APPLY TO THE AFFECTED AREA TWICE DAILY Topical for 06/09/2011 06/16/2011 Triamterene-HCTZ 37.5-25 MG TAKE ONE CAPSULE BY MOUTH EVERY MORNING TO RELIEVE FLUID RETENTION Oral 11/29/2010 OneTouch Ultra use as directed x 2 daily In Vitro for 03/29/2012 03/24/2013 metFORMIN HCl ER 500 MG take 2 tablets ( 1,000 mg) by oral route once daily with the evening meal Oral 1 for 01/17/2012 08/14/2012 Tricor 48 mg TAKE 1 TABLET BY MOUTH EVERY DAY Oral for 04/08/2012 05/08/2012 metFORMIN HCl ER (MOD) 500 MG TAKE 2 TABLETS BY MOUTH DAILY WITH EVENING MEALS Oral for 10/08/2012 11/07/2012 Synthroid 137 MCG take 1 tablet (137 mcg) by oral route once daily Oral 1 for 30 01/17/2012 08/14/2012 One Touch Delbárbara Lancets use as directed x 2 daily Miscellaneous for 90 03/29/2012 03/24/2013 Triamterene-HCTZ 37.5-25 MG TAKE 1 TABLET BY MOUTH EVERY DAY Oral for 30 12/09/2012 07/07/2013 Lipitor 10 MG take 1 tablet (10 mg ) by oral route once daily at bedtime for 30 days Oral 1 for 30 12/09/2012 07/07/2013 fenofibrate nanocrystallized 48 mg TAKE 1 TABLET BY MOUTH EVERY DAY Oral for 30 11/14/2012 12/14/2012 *Reorder from [facility] for eRx and Interaction Alerts* Progress Notes * Nidhi VASQUEZ MDOB:[birth year] (63 yo F)Acc No.[id number]:04/07/2023 Patient: Juan SONice Julia :1960 A ge:62 Y S ex:Female Address:[address] [place] [address] * Refills Stop Diovan Tablet, 80 mg, Oral, 30, TAKE 1 TABLET BY MOUTH DAILY Stop Synthroid tablet, 150 mcg, Oral, 30, TAKE ONE TABLET BY MOUTH EVERY DAY ., 30 Stop Synthroid tablet, 150 mcg, Oral, 30, TAKE ONE TABLET BY MOUTH EVERY DAY ., 30 Stop Triamterene-HCTZ Tablet, 37.5-25 MG, Oral, 30, TAKE ONE CAPSULE BY MOUTH EVERY MORNING TO RELIEVE FLUID RETENTION, 30 Stop metFORMIN HCl ER Tablet Extended Release 24 Hour, 500 MG, Oral, 60, take 2 tablets (1,000 mg) by oral route once daily with the evening meal, 1, 30 Stop Synthroid Tablet, 137 mcg, Oral, 30, TAKE 1 TABLET BY MOUTH EVERY MORNING, 30 Stop Triamterene-HCTZ Tablet, 37.5-25 MG, Oral, 30, TAKE 1 TABLET BY MOUTH EVERY DAY, 30 Stop metFORMIN HCl ER (MOD) Tablet Extended Release 24 Hour, 500 MG, Oral, 60, TAKE 2 TABLETS BY MOUTH DAILY WITH EVENING MEALS, 30 Stop Diovan tablet, 80 mg, Oral, 30, TAKE 1 TABLET BY MOUTH EVERY DAY, 30 Stop Lipitor Tablet, 10 mg, Oral, 30, TAKE 1 TABLET BY MOUTH EVERY DAY Stop Synthroid Tablet, 137 MCG, Oral, 30, take 1 tablet (137 mcg) by oral route once daily, 1, 30 Stop Triamcinolone Acetonide Cream, 0.1%, Topical, 30, APPLY TO THE AFFECTED AREA TWICE DAILY, 7 Stop metFORMIN HCl ER Tablet Extended Release 24 Hour, 500 MG, Oral, 60, take 2 tablets (1,000 mg) by oral route once daily with the evening meal, 1, 30 Stop Triamterene-HCTZ Capsule, 37.5-25 MG, Oral, 90, TAKE ONE CAPSULE BY MOUTH EVERY MORNING TO RELIEVE FLUID RETENTION Stop OneTouch Ultra Strip, In Vitro, 2, use as directed x 2 daily, 90 Stop Triamterene-HCTZ Tablet, 37.5-25 MG, Oral, 30, TAKE 1 TABLET BY MOUTH EVERY DAY, 30 Stop Lipitor Tablet, 10 mg, Oral, 90, TAKE 1 TABLET BY MOUTH EVERY DAY, 90 Stop metFORMIN HCl ER Tablet Extended Release 24 Hour, 500 MG, Oral, 60, take 2 tablets (1,000 mg) by oral route once daily with the evening meal, 1, 30 Stop Lipitor Tablet, 10 MG, Oral, 30, take 1 tablet (10 mg) by oral route once daily at bedtime for 30 days, 1, 30 Stop Triamterene-HCTZ Tablet, 37.5-25 MG, Oral, 90, TAKE ONE CAPSULE BY MOUTH EVERY MORNING TO RELIEVE FLUID RETENTION Stop Tricor tablet, 48 mg, Oral, 30, TAKE 1 TABLET BY MOUTH EVERY DAY, 30 Stop Synthroid Tablet, 150 MCG, Oral, 30, take 1 tablet (150 mcg) by oral route once daily, 1, 30 Stop One Touch Delica Lancets Misc, Miscellaneous, 2, use as directed x 2 daily, 90 Stop Tricor Tablet, 48 MG, Oral, 30, take 1 tablet (48 mg) by oral route once daily for 30 days, 1, 30 Stop fenofibrate nanocrystallized tablet, 48 mg, Oral, 30, TAKE 1 TABLET BY MOUTH EVERY DAY, 30 Subjective: * Chief Complaints: * E MR-Raphael * Medical History: * Surgical History: * Hospitalization/Major Diagno stic Procedure: * Medications: Objective: * Vitals: * Physical Examination: Assessment: Plan: * Treatment: * Procedure Codes: * * Date:
--- OUTSIDE RECORDS SUMMARY | 2024-08-13 10:48 | XMS_ITS | Data Portability ---
Author Organization [facility], Main Office Address [address] [place] [address] Assessment No assessment recorded. Plan of Treatment Reminders Order Date Submit Date Provider Last Modified By Organization Details Last Modified Time Details Appointments None recorded. Lab CMP, serum or plasma 2022 023 [facility] (Lab), [address] [place], [address], 3 05:34:07 HbA1c (hemoglobin A1c), blood [address] (Lab), [address] [place], [address], 3 07:58:55 TSH, serum, reflex free T4 2022 023 [facility] (Lab), [address] [place], [address], 3 05:34:08 lipid panel, serum 2022 023 [facility] (Lab), [address] [place], [address], 3 05:34:07 vitamin B12 + folate, serum or blood 2022 023 [facility] (Lab), [address] [place], [address], 3 05:34:08 Referral None recorded. Procedures None recorded. Surgeries None recorded. Imaging None recorded. Medication Orders pramipexole 0.25 mg tablet 2022 023 [facility] #[id number], [address] [place], [place], [id number], 3 14:52:19 valsartan 160 mg-hydrochl orothiazide 12.5 mg tablet 2022 023 [facility] #[id number], [address] [place], [place], [id number], 3 14:52:15 metformin 500 mg tablet 2022 023 [facility] #[id number], [address] [place], [place], [id number], 3 14:52:18 Trulicity 1.5 mg/0.5 mL subcutaneou s pen injector 2022 023 [facility] #[id number], [address], [place], [id number], 3 14:57:53 levothyroxi ne 88 mcg tablet 2022 023 [facility] #76718, [address], [place], [id number], 3 14:52:20 Patient TargetsNo targets recorded. Patient InstructionsNo instructions recorded. Reason for Referral None Reported. Results Created Date Observation Date Name Description Value Unit Range Abnormal Flag Note LastModifiedBy Organization Detail LastModifiedTime 03/14/20 21 03/14/2021 urina lysis , dipst ick Leukocytes (reference range: negative raf/ l) Modera te Not Available [facility] [address] , [address], [place], [address], 03/14/2021 14:05:44 03/14/20 21 03/14/2021 urina lysis , dipst ick Nitrite (reference rage: negative mg/dl) negati ve Not Available [address] , [address], [place], [address], 03/14/2021 14:05:44 03/14/20 21 03/14/2021 urina lysis , dipst ick Urobilinogen (reference range: 0.2-1 mg/dl) 0.2 Not Available [address] , [address], [place], [address], 03/14/2021 14:05:44 03/14/20 21 03/14/2021 urina lysis , dipst ick Protein (reference range: negative mg/dl) Trace Not Available [address] , [address], [place], [address], 03/14/2021 14:05:44 03/14/20 21 03/14/2021 urina lysis , dipst ick pH (reference range: 5-7) 5.5 Not Available [address] , [address], [place], [address], 03/14/2021 14:05:44 03/14/20 21 03/14/2021 urina lysis , dipst ick Blood (reference range: negative Thom/ l) Small Not Available [address] , [address], [place], [address], 03/14/2021 14:05:44 03/14/20 21 03/14/2021 urina lysis , dipst ick Specific [place] (reference range: 1.005-1.030) 1.025 Not Available [address] , [address], [place], [address], 03/14/2021 14:05:44 03/14/20 21 03/14/2021 urina lysis , dipst ick Ketone (reference range: negative mg/dl) Negati ve Not Available [address] , [address], [place], [address], 03/14/2021 14:05:44 03/14/20 21 03/14/2021 urina lysis , dipst ick Bilirubin (reference range: negative mg/dl) Negati ve Not Available [address] , [address], [place], [address], 03/14/2021 14:05:44 03/14/20 21 03/14/2021 urina lysis , dipst ick Glucose (reference range: negative mg/dl) Negati ve Not Available [address] , [address], [place], [address], 03/14/2021 14:05:44 03/14/20 21 03/14/2021 urina lysis , dipst ick Appearance Slight ly Cloudy Not Available [address] , [address], [place], [address], 03/14/2021 14:05:44 03/14/20 21 03/14/2021 urina lysis , dipst ick Color Yellow Not Available [address] , [address], [place], [address], 03/14/2021 14:05:44 03/15/20 21 03/15/2021 CULTU RE URINE urc ===== ===== ===== ===== ===== ===== ===== ===== ===== ===== ===== ===== ===== ===== ===== ===== ===== ===== ===== ===== ===== ===== ===== ===== CULTU RE NO.: [id number] Exam Statu s: Final Exam Type: CULTU RE URINE ===== ===== ===== ===== ===== ===== ===== ===== ===== ===== ===== ===== ===== ===== ===== ===== ===== ===== ===== ===== ===== ===== ===== ===== Cultu re Repor t: Organ ism #01 Esche michelle a coli (escc ol) Antib iotic s escco l Achie vable Achie vable (01) Dosag e Serum Level Urine Level mcg/m l mcg/m l Radha seth <=2 S 021K Ampic illin <=2 S 021K Ampic illin /Sulb actam <=2 S 021K Cefaz kobi <=4 S 021K Cefep dayne <=1 S 021K Cefox itin <= 4 S 021K Ceftr iaxon e <=1 S 021K Cipro floxa seth <=0.2 5 S 021K ESBL NEG - 021K Genta micin <=1 S 021K Levof loxac in <=0.1 2 S 021K Merop enem <=0.2 5 S 021K Piper acill in./T azaba <=4 S 021K Tobra mycin <=1 S 021K Trmet hopri m.Sul fa <=20 S 021K rt - Test Card Code AST-G N 021K o2 - Final Organ ism ESCHE R 021K af - Antib iotic Fami TRIME T 021K af - Antib iotic Famil y Na ap - Pheno type Name WILD 021K ap - Pheno type Name Nitro furan toin <=16 S 021K Not Available [facility] (Lab) [address] [place], [address], 03/17/2021 08:46:54 09/09/19 22 09/08/2021 MICRO ALBUM IN RANDO M URINE microalb <6.0 mg/L 0.0-16 .6 RESUL T IS LESS THAN REPOR TABLE RANGE OF ASSAY . Not Available [facility] (Lab) [address] [place], [address], 09/08/2021 18:48:41 09/09/19 22 09/08/2021 FOLAT E, SERUM /PLAS MA folate 10.4 NG/mL 2.76- Not Available [facility] (Lab) [address] [place], [address], 09/08/2021 16:14:30 09/09/19 22 09/08/2021 VITAM IN B12 (JAIMIE CASEY ) vb12 >1000 pg/mL 239-93 1 high Not Available [facility] (Lab) [address] [place], [address], 09/08/2021 16:14:28 09/09/19 22 09/08/2021 HEMOG LOBIN A1C HA1C 7.4 % 4.0-6. 0 high Diabe robert Scree marcos Crite hayley: <5.7% Consi stent with absen ce of diabe robert 5.7-6 .4% Consi stent with incre ased risk for diabe robert (pred iabet es) >OR=6 .5% Consi stent with diabe robert REFER ENCE: Diabe robert Care 2016, 39(Cuadra ppl.1 ):s13 -s22 Not Available [facility] (Lab) [address] [place], [address], 09/08/2021 14:20:29 09/09/19 22 09/08/2021 BASIC METAB OLIC PANEL sodium 138 mmol/ L 137-14 5 Not Available [facility] (Lab) [address] [place], [address], 09/08/2021 13:29:31 09/09/19 22 09/08/2021 BASIC METAB OLIC PANEL potassium 4.6 mmol/ L 3.5-5. 1 Not Available [facility] (Lab) [address] [place], [address], 09/08/2021 13:29:31 09/09/19 22 09/08/2021 BASIC METAB OLIC PANEL chloride 101 mmol/ L 98-107 Not Available [facility] (Lab) [address] [place], [address], 09/08/2021 13:29:31 09/09/19 22 09/08/2021 BASIC METAB OLIC PANEL carbon dioxide 29 mmol/ L 22-30 Not Available [facility] (Lab) [address] [place], [address], 09/08/2021 13:29:31 09/09/19 22 09/08/2021 BASIC METAB OLIC PANEL agap 12.6 mmol/ L 14-22 low Not Available [facility] (Lab) [address] [place], [address], 09/08/2021 13:29:31 09/09/19 22 09/08/2021 BASIC METAB OLIC PANEL glucose 138 mg/dL 70-99 high Not Available [facility] (Lab) [address] [place], [address], 09/08/2021 13:29:31 09/09/19 22 09/08/2021 BASIC METAB OLIC PANEL BUN 15 mg/dL 8-19 Not Available [facility] (Lab) [address] [place], [address], 09/08/2021 13:29:31 09/09/19 22 09/08/2021 BASIC METAB OLIC PANEL creatinine 0.54 mg/dL 0.66-1 .25 low Not Available [facility] (Lab) [address] [place], [address], 09/08/2021 13:29:31 09/09/19 22 09/08/2021 BASIC METAB OLIC PANEL GFR >60 Refer ence Range : [place] ge GFR Healt hy Adult : >60 mL/mi n/1.7 3 m2 Chron ic Kidne y Disea se: 15-60 mL/mi n/1.7 3 m2 Kidne y Failu re: <15/m L/min /1.73 m2 www.n iddk. nih.g ov The MDRD study equat ion has not been valid ated in child ar <18 years of age; pregn ant women ; the elder ly >85 years of age; or in some racia l or ethni c subgr oups, such as Hisok nics. Outsi de the valid ated inna eters , estim ated GFR is less accur ate, requi ring clini cherri judgm ent on a case- by-ca se basis . Clini cherri inter preta tion for other races and ages must be made by the clini elan. The MDRD study equat ion has not been valid ated for the evalu ation of serum creat inine relat ed to nutri arelis l statu s or medic ation usage . For perso ns <18 years of age, a pedia tric GFR calcu lator is avail able on the F websi te: https ://dariela w.kid silvia.o rg/pr freddyess ional s/kdo qi/gf r_cal culat or Not Available [facility] (Lab) [address] [place], [address], 09/08/2021 13:29:31 09/09/19 22 09/08/2021 BASIC METAB OLIC PANEL calcium 9.7 mg/dL 8.4-10 .2 Not Available [facility] (Lab) [address] [place], [address], 09/08/2021 13:29:31 09/09/19 22 09/08/2021 LIPID PANEL cholesterol 164 mg/dL 140-19 9 NIH RAÚL NSUS RECOM MENDA TION FOR MAYRA STERO L: ADULT CHILD LOW RISK: <200 <170 BORDE RLINE : <200- 239 ----- HIGH RISK: >240 >200 Not Available [facility] (Lab) [address] [place], [address], 09/08/2021 13:29:27 09/09/19 22 09/08/2021 LIPID PANEL triglyceride s 198 mg/dL 0-150 high NIH RAÚL NSUS REPOR T RECOM MENDA TION FOR TRIGL YCERI NORIS: ADULT CHILD LOW RISK: <150 ----- BODER LINE: 150-1 99 ----- HIGH RISK: >200 ----- Not Available [facility] (Lab) [address] [place], [address], 09/08/2021 13:29:27 09/09/19 22 09/08/2021 LIPID PANEL HDL cholesterol 39 mg/dL 40- low Not Available [facility] (Lab) [address] [place], [address], 09/08/2021 13:29:27 09/09/19 22 09/08/2021 LIPID PANEL LDL cholesterol, calculated 85 mg/dL 0-130 NIH RAÚL NSUS REPOR T RECOM MENDA TIONS FOR LDL: ADULT CHILD LOW RISK <130 <110 (OPTI MAL LDL) <100 ----- BORDE RLINE : 130-1 59 ----- HIGH RISK: >160 >130 A TRIGL YCERI DE RESUL T >400 INVAL IDATE S THE CALCU LATIO N FOR LDL FRACT IONAT ION - THE LDL RESUL T WILL NOT BE REPOR ROXANE. Not Available [facility] (Lab) [address] [place], [address], 09/08/2021 13:29:27 09/09/19 22 09/08/2021 HEPAT IC/LI GUTIERREZ PANEL alkaline phosphatase 93 U/L 38-[address] [facility] (Lab) [address] [place], [address], 09/08/2021 13:29:25 09/09/19 22 09/08/2021 HEPAT IC/LI GUTIERREZ PANEL alanine aminotransfe rase 28 U/L 0-35 Not Available [facility] (Lab) [address] [place], [address], 09/08/2021 13:29:25 09/09/19 22 09/08/2021 HEPAT IC/LI GUTIERREZ PANEL aspartate aminotransfe rase 36 U/L 15-37 Not Available [facility] (Lab) [address] [place], [address], 09/08/2021 13:29:25 09/09/19 22 09/08/2021 HEPAT IC/LI GUTIERREZ PANEL bilirubin, total 0.70 mg/dL 0.20-1 .30 Not Available [facility] (Lab) [address] [place], [address], 09/08/2021 13:29:25 09/09/19 22 09/08/2021 HEPAT IC/LI GUTIERREZ PANEL bilirubin, conjugated (direct) 0.00 mg/dL 0.00-0 .30 Not Available [facility] (Lab) [address] [place], [address], 09/08/2021 13:29:25 09/09/19 22 09/08/2021 HEPAT IC/LI GUTIERREZ PANEL biliurubin,u ncong. (indirect) 0.50 mg/dL 0.00-1 .1 Not Available [facility] (Lab) [address] [place], [address], 09/08/2021 13:29:25 09/09/19 22 09/08/2021 HEPAT IC/LI GUTIERREZ PANEL total protein 7.0 g/dL 6.3-8. 2 Not Available [facility] (Lab) [address] [place], [address], 09/08/2021 13:29:25 09/09/19 22 09/08/2021 HEPAT IC/LI GUTIERREZ PANEL albumin 4.3 g/dL 3.4-5. 0 Not Available [facility] (Lab) [address] [place], [address], 09/08/2021 13:29:25 09/09/19 22 09/08/2021 HEPAT IC/LI GUTIERREZ PANEL globulin 2.7 g/dL 2.6-4. 2 Not Available [facility] (Lab) [address] [place], [address], 09/08/2021 13:29:25 09/09/19 22 09/08/2021 HEPAT IC/LI GUTIERREZ PANEL A/G ratio 1.6 ratio 1.0-2. 0 Not Available [facility] (Lab) [address] [place], [address], 09/08/2021 13:29:25 05/04/20 21 05/04/2021 elect destinee martel am No observ ation record ed. [id number] [facility] [address] , [address], [place], [address], 08/16/2022 22:28:41 05/05/20 21 XR, chest , 2 view [facility] [address] [place], [place] [address] Patimichael t Name: NIDHI GRIFFITH Access ion #: [id number] Sex: F : 1960 1 Locati on: RA2 Attend ing Physic shashank: ADRIÁN BURNS Orderi Physic shashank: ADRIÁN BURNS Exam Date: 2020 9:01 AM Exam Name: XR CHEST 2V Admitt ing Diagno sis(es ): RADIOL OGY REPORT - FINAL EXAM: XR CHEST 2V HISTOR Y: pre surger y evalua tion 60-yea r-old female with preope rative chest x-ray prior to spinal fusion surger y. COMPAR RICHARD: None availa ble. TECHNI QUE: 2 views of the chest were perfor med. FINDIN GS: No pneumo thorax , pulmon misbah edema, or consol idativ e infilt rates. The heart is not enlarg ed. The aortic arch is calcif ic. No fractu res are identi fied about the bony thorax . There is thorac ic and lumbar degene rative disc diseas e. There are postop erativ e change s of the lower lumbar spine, not comple tely imaged here. Page 1 of 2 [facility] Name: NIDHI GRIFFITH Access ion #: [id number] Sex: F : 1960 1 Exam Date: 2020 9:01 AM Exam Name: XR CHEST 2V Admitt ing Diagno sis(es ): IMPRES KIARA: 1. No acute intrat horaci c proces s. 2. Athero sclero tic vascul ar diseas e. 3. Thorac olumba r degene rative disc diseas e and partia lly visual ized postop erativ e change s of the lumbar spine. Create d and electr onical ly signed by: Cruz oconnor MD Signed Date: 2020 9:19 AM (CT) Dictat ed by: Cruz oconnor MD DD: 2020 9:19 AM (CT) DT: 2020 9:19 AM (CT) Page 2 of 2 [id number] [facility] (Imaging) [address] [place], [address], 08/16/2022 22:28:41 05/05/20 21 05/05/2021 XR, chest , 2 view No observ ation record ed. [id number] [facility] [address] [place] [address], [place], [address], 08/16/2022 22:28:41 Result Notes None recorded. 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 Not Available [facility] 3 22:27:02 History of malignant neoplasm of breast 402399521 Active 2020 9 Not Available [facility] 3 22:27:02 History of lumbar fusion 6185807893217 6 Active 2020 Not Available [facility] 3 22:27:02 Diabetes mellitus 16761825 Active 2020 Not Available [facility] 3 22:27:02 Sleep apnea 94027536 Active 2020 Not Available [facility] 3 22:27:02 Hyperlipid emia 36118783 Active 2022 MARINO Avalos [address], [address], [place], [address] , [employer] 3 09:23:46 Cobalamin deficiency 446283032 Active 2022 MARINO Avalos [address], [address], [place], [address] , [employer] [facility] 3 09:25:50 Hypothyroi dism 53142565 Active 2022 MARINO Avalos [address], [address], [place], [address] , [employer] 3 14:47:26 Restless legs 69208628 Active 2022 MARINO Avalos [address], [address], [place], [address] , [employer] [facility] 3 14:50:00 Hypertensi ve disorder 69112291 Active 2022 MARINO Avalos [address] [facility], [place], [address] , [place] [facility] 14:51:14 Problem Notes None recorded. Procedures Surgical History Date Name Laterality Status Provider Name and Address Organization Details Recorded Time Tonsillectomy completed Not Available [facility] 08/16/2022 22:26:18 other completed Not Available [facility] 06/2022 22:26:18 Back Surgeries completed Not Available [facility] 08/16/2022 22:26:18 Imaging Results Imaging Date Name Status LastModified by Organization Details LastModified Time 05/05/2021 XR, chest, 2 view completed MIGRATION. [id number] [facility] (Imaging) [address] [facility], [place], [address], 08/16/2022 22:28:41 05/04/2021 electrocardiogram completed MIGRATION. [id number] [facility] [address] , [facility], [place], [address], 08/16/2022 22:28:41 05/05/2021 XR, chest, 2 view completed MIGRATION. [id number] , [place], [address], 08/16/2022 22:28:41 Procedure Notes None recorded. Medical Equipment None Reported. Allergies Allergen ID Allergen Name Allergen Category Reaction Reaction Severity Criticality Documentation Date Start Date Code Code System Note Provider Name and Address Organization Details Recorded Time 08799 tetracycl ine medicatio n Not available Not available Not available 08/16/2022 73414 RxNorm Not Available [facility] 22:28:36 57370 Substance with sulfonami de structure and antibacte rial mechanism of action (substanc e) medicatio n Not available Not available Not available 08/16/2022 35646 8003 SNOMED Not Available [facility] 22:28:36 21886 Bydureon medicatio n Not available Not available Not available 08/16/2022 71708 64 RxNorm Not Available [facility] 3 22:28:36 Medications Name Sig Start Date Stop Date Status Note LastModified by Organization Details LastModified Time metformin 500 mg tablet TAKE 1 TABLET BY MOUTH THREE TIMES DAILY WITH MEALS 2022 active Not Available Not Available Not Avai lable prednisone 10 mg tablet TAKE 1 TABLET BY MOUTH TWICE DAILY FOR 10 DAYS 05/16 completed Not Available Not Available Not Available atorvastati n 20 mg tablet TAKE 1 TABLET BY MOUTH EVERY DAY active Not Available Not Available No t Available fluconazole 150 mg tablet TAKE 1 TABLET BY MOUTH EVERY DAY FOR 1 DAY 05/16 completed Not Available Not Available Not Available Nystop 100,000 unit/gram topical powder APPLY TOPICALLY TO THE AFFECTED AREA TWICE DAILY. active Not Available Not Available No t Available prednisone 20 mg tablet TK 2 TS PO ONCE PER DAY active Not Available Not Available No t Available valsartan 160 mg-hydrochl orothiazide 12.5 mg tablet TAKE 1 TABLET BY MOUTH EVERY DAY 2022 active Not Available Not Available Not Avai lable clobetasol 0.05 % topical cream APPLY THREE TIMES A DAY NEEDED active Not Available Not Available No t Available cyanocobala min (vit B-12) 1,000 mcg tablet Take 1 tablet(s) every day by oral route. active Not Available Not Available No t Available tramadol 50 mg tablet TAKE 1 TABLET BY MOUTH TWICE DAILY FOR 20 DAYS NEEDED active Not Available Not Available No t Available levothyroxi ne 100 mcg tablet active Not Available Not Available Not Available oxycodone-a cetaminophe n 5 mg-325 mg tablet TAKE 1 TABLET BY MOUTH EVERY 4 HOURS FOR 7 DAYS NEEDED 05/16 completed Not Available Not Available Not Available levothyroxi ne 88 mcg tablet TAKE 1 TABLET BY MOUTH DAILY active Not Available Not Available No t Available cyanocobala min (vit B-12) 1,000 mcg/mL injection solution ADMINISTE R 1 ML UNDER THE SKIN EVERY MONTH 12/21 completed Not Available Not Available Not Available BD Luer-Cam Syringe 3 mL 25 gauge x 1 USE MONTHLY WITH B12 active Not Available Not Available No t Available pramipexole 0.25 mg tablet active Not Available Not Available Not Available Banophen 25 mg capsule TK ONE C PO QID active Not Available Not Available No t Available cyanocobala min (vit B-12) 1,[address] by sublingua l route. 05/22 completed hold Not Available Not Available Not Available methylpredn isolone 4 mg tablets in a dose pack FOLLOW PACKAGE DIRECTION S 05/16 completed Not Available Not Available Not Available levothyroxi ne 112 mcg tablet TK 1 T PO QD active Not Available Not Available No t Available Premarin 0.625 mg/gram vaginal cream Insert 0.5 applicato rsful every day by vaginal route. 2020 active Not Available Not Available Not Avai lable nitrofurant oin monohydrate /macrocryst als 100 mg capsule Take 1 capsule every 12 hours by oral route for 5 days. 05/04 completed Not Available Not Available Not Available Vascepa 1 gram capsule Take by oral route for 90 days. active Not Available Not Available No t Available Osphena 60 mg tablet TK 1 T PO QD active Not Available Not Available No t Available Trulicity 1.5 mg/0.5 mL subcutaneou s pen injector ADMINISTE R 1.5 MG UNDER THE SKIN WEEKLY active Not Available Not Available No t Available Accu-Chek Guide test strips TEST TWICE DAILY active Not Available Not Available No t Available OneTouch Ultra Blue Test Strip U TO TEST BLOOD SUGAR BID active Not Available Not Available No t Available Fluarix Quad (PF) 60 mcg (15 mcg x 4)/0.5 mL IM syringe ADM 0.5ML IM UTD active Not Available Not Available No t Available BinaxNOW COVID-19 Ag Self Test kit TEST DIRECTED TODAY 08/21 completed Not Available Not Available Not Available Vitals Date Recorded Body mass index (BMI) Body height Oxygen saturation Oxygen saturation in Arterial blood by Pulse oximetry Heart rate Body temperature Body weight Systolic blood pressure Diastolic blood pressure Provider Name and Address Organization Details Last Updated DateTime 1 34.5 kg/m2 142.24 cm 98 % 98 % 82 /min 98 [degF] 07684.2 2 g 140 mm[Hg] 80 mm[Hg] Not Available [facility] 3 22:26:27 Date Recorded Body mass index (BMI) Body height Oxygen saturation Oxygen saturation in Arterial blood by Pulse oximetry Heart rate Body temperature Body weight Systolic blood pressure Diastolic blood pressure Provider Name and Address Organization Details Last Updated DateTime 2 34.5 kg/m2 142.24 cm 97 % 97 % 88 /min 96.3 [degF] 59380.2 2 g 122 mm[Hg] 80 mm[Hg] Not Available [facility] 3 22:26:27 Date Recorded Body mass index (BMI) Body height Oxygen saturation Oxygen saturation in Arterial blood by Pulse oximetry Heart rate Body temperature Body weight Systolic blood pressure Diastolic blood pressure Provider Name and Address Organization Details Last Updated DateTime 2 35.9 kg/m2 142.24 cm 98 % 98 % 90 /min 96 [degF] 61908.7 8 g 132 mm[Hg] 70 mm[Hg] Not Available [facility] 3 22:26:27 Date Recorded Body height Provider Name an d Address Organization Details Last Updated DateTime 03/14/2021 142.24 cm Not Available [facility] 3 22:26:27 Date Recorded Body height Body mass index (BMI) Body weight Body temperature Heart rate Oxygen saturation Oxygen saturation in Arterial blood by Pulse oximetry Systolic blood pressure Diastolic blood pressure Provider Name and Address Organization Details Last Updated DateTime 3 142.24 cm 33 kg/m2 58873.0 8 g 98.4 [degF] 82 /min 100 % 100 % 142 mm[Hg] 80 mm[Hg] Jorge John CMA [facility] 3 14:35:54 Social History Question Answer Notes LastModified by Organizat ion Details LastModified Time Tobacco Smoking Status Never Smoker Leilani ramirez [facility] 08/21/2022 14:23:55 What Is Your Level Of Alcohol Consumption? None 3-4 Times Yearly [id number] Information not available 08/16/2022 What Is Your Level Of Caffeine Consumption? Occasional [id number] Information not available 08/16/2022 How Much Tobacco Do You Chew? None [id number] Information not available 08/16/2022 In The 14 Days Before Symptom Onset, Have You Had Close Contact With A Laboratory-confir med COVID-19 While That Case Was Ill? No Information not available 08/21/2022 In The 14 Days Before Symptom Onset, Have You Had Close Contact With A Person Who Is Under Investigation For COVID-19 While That Person Was Ill? No [email or web address] Information not available 08/21/2022 What Type Of Diet Are You Following? REGULAR [id number] Information not available 08/16/2022 Which Illicit Or Recreational Drugs Have You Used? None [email or web address] Information not available 08/21/2022 Do You Or Have You Ever Used E-cigarettes Or Vape? Never Used Electronic Cigarettes [email or web address] Information not available 08/21/2022 Do You Or Have You Ever Used Smokeless Tobacco? Never Used Smokeless Tobacco [id number] Information not available 08/16/2022 How Much Tobacco Do You Smoke? No [id number] Information not available 08/16/2022 Do You Have Any Dietary Restrictions? No [email or web address] Information not available 08/21/2022 Sex: Unknown Functional Status Question Answer Note LastModified by Organizat ion Details LastModified Time What is your exercise level? Occasional [id number] Information not available 08/16/2022 Mental Status None recorded. Family History Relationship Description Onset Age of this Age Resolved Age Notes LastModified by Organization Details LastModified Time Mother Neuropathy [id number] Not available 08/16/2022 22:26:19 Mother Hypertensive disorder [id number] Not available 08/16/2022 22:26:19 Notes:cardiac issues - fathe r () Medical History Condition Response NO SIGNIFICANT PAST MEDICAL HISTORY Y Gynecological History Statement/Question Response Dislike of Light during Menstrual Headac he N Menses Monthly N Abnormal Pap N Current Control Method Menopause Obstetrics History GPAL:G 0 P 0 0 0 0 Immunizations Vaccine Type Date Status Note Provider Nam e and Address Organization Details Recorded Time COVID-19, mRNA, LNP-S, PF, 30 mcg/0.3 mL dose 1 completed Not Available [facility] 08/16/2022 22:28:32 Influenza, split virus, quadrivalent, preservative 1 completed Not Available [facility] 08/16/2022 22:28:32 COVID-19, mRNA, LNP-S, PF, 100 mcg/0.5mL dose or 50 mcg/0.25mL dose 1 completed Not Available [facility] 08/16/2022 22:28:32 COVID-19, mRNA, LNP-S, PF, 100 mcg/0.5mL dose or 50 mcg/0.25mL dose 1 completed Not Available [facility] 08/16/2022 22:28:32 pneumococcal polysaccharide PPV23 1 completed Not Available [facility] 08/16/2022 22:28:32 Influenza, split virus, quadrivalent, preservative 0 completed Not Available [facility] 08/16/2022 22:28:32 Influenza, split virus, quadrivalent, PF 2 completed Not Available [facility] 08/16/2022 22:28:33 Past Encounters Encounter ID Performer Location Encounter Start Date Encounter Closed Date Diagnosis/Indication Diagnosis SNOMED-CT Code Diagnosis ICD10 Code Diagnosis Note [id number] S_[facility] [address] , [place] [address] 12/21/2020 00:00:00 12/21/2020 13:01:12 [id number] [facility] [address] [place] [address] 03/14/2021 00:00:00 03/14/2021 14:21:07 [id number] S_G [facility] [address] [place] [address] 05/04/2021 00:00:00 05/04/2021 15:32:47 [id number] [facility] [address] [place] [address] 08/31/2021 00:00:00 08/31/2021 11:25:43 [id number] [facility] [address] [facility] [address] [place] [address] 05/22/2022 00:00:00 05/22/2022 18:59:50 [id number] MARINO Avalos [facility] [address] [facility] [address] [place] [address] 08/21/2022 14:23:32 08/21/2022 15:26:01 Diabetes mellitus 61070225 E11.9 (05/22/22) A1C 6.8Fasting AM sugars running around 130s.Belle nue with metformin 500mg TID and Trulicity 1.5mg weekly. Encouraged healthy eating/exe rcise. Hyperlipidemia 76682493 E78.5 Continue Atorvastat in 20mg daily. Adult heal th examination 571177070 Z00.00 Will get routine labs today. Covid vaccines- recommende d to keep up with boostersFl u vaccine- recommende d next fallTetanu s vaccine- recommende d; declined Pap- 01/2022 wnlColonos copy- due; will order in a few months, would like to hold for nowMammogr am- 03/2022 wnl Recommende d routine eye exams and dental cleanings. Cobalamin deficiency 190 412518 E53.8 Elevated on last labs, has not been on supplement for the last year. Hypothyroidism 12378436 E03.9 Recheck labs today. Restless legs 66820603 G 25.81 Stable. Continue pramipexol e. Hypertensive disorder 38 385020 I10 Continue to monitor. Health Concerns Section Related Observation LastModified by Organization Detai ls LastModified Time None Recorded Concern Status LastModified by Organization Details LastModified Time None Recorded Advance Directives Directive None Recorded Payers Encounter Date Sequence Insurance Name Policy Number Policy [place] Covered Member ID [place] Member ID Guarantor Name 08/21/2022 1 [employer] (INDEMNITY) [id number] Nidhi Martines [id number] OI Nidhi Martines Notes Date Note Type Note Provider Name and Address Organization Details Recorded Time 08/21/2022 text/html Pt. here for annual physical. No new concerns or complaints. MARINO Avalos [address] [facility], [place], [address], [place] - [place] 08/21/2022 16:31:02 OBGyn Episode No OBEpisode recorded.
--- OUTSIDE RECORDS SUMMARY | 2024-08-13 10:48 | XMS_ITS | Patient Health Record ---
Author Organization [facility] Address [address] [facility] [address] [place] [address] Support Name Relationship Address Phone Nidhi Martines Guarantor Unknown [phone] Allergies No Known Allergies Reason For Referral No Information Medications Medication SIG (Take, Route, Frequency, Duration) Notes Start Date End Date Status metFORMIN HCl ER 500 MG TAKE 2 TABLETS BY MOUTH DAILY WITH EVENING MEALS Oral 11/10/2013 Active Sinemet 500 /200 mg Once daily in evening Oral *Pick strength-form from [facility] for eRX* Active Tamoxifen Citrate 20 MG take 1 tablet (20 mg) by oral route once daily Oral 1 Active Vitamin D 4000 IU DAILY *Pick strength-form from [facility] for eRX* Active Problems Problem Type SNOMED Code ICD Code Onset Dates Problem Status W/U Status Risk Notes Problem Renal disorder due to type 2 diabetes mellitus (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 Problem Mixed hyperlipidemia (913044536) Mixed hyperlipidemia (272.2) 012 Active confirmed Problem Lumbar post-laminectomy syndrome (812938596) Postlaminectomy syndrome, lumbar region (722.83) Active confirmed Has had 3 back surgeries since 1998 , ( with post op Staph Infection ) and 05/[address] Barr at [facility] . Multi levels lumbar fusion. 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 Problem Hyperlipidemia (38723042) Hyperlipidemia, unspecified (E78.5) 005 Active confirmed Problem Essential hypertension (01944596) Essential (primary) hypertension (I10) 005 Active confirmed Plan Of Treatment No Information Insurance Providers Payer Name Payer Address Payer Phone Subscriber Number Group Number Insured Name Patient Relationship to Insured Coverage Start Date Coverage End Date DO NOT USE [id number] Nidhi Martines Self - patient is the insured 2010 Medical (General) History Surgical History Surgery Date(Month/Year) Back surgery: 3 surgeries to date , Fusion of L4-5 , surgery in 2005 was complicated by post op infection., Date of Procedure: 1998,,; 2011-07-25 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
--- OUTSIDE RECORDS SUMMARY | 2024-08-13 10:48 | XMS_ITS | Continuity of Care Document ---
Author Organization [facility] Address [address] [place] [address] Phone Care Team Providers Care University Administrative Assistant Name Role Phone Obdulio De La Cruz MD Unavailable Unavailable Allergies, Adverse Reactions, Alerts Substance Reaction Status Criticality tetracycline rash, swelling Active No Informatio n WARNIN allergy(ies) could not be collected because the type is not supported. Please contact the source practice for further details. Medications Medication Instructions Dosage Effective Dates (start - stop) Status Comments MELOXICAM TABS 15MG TAKE 1 TABLET DAILY - Active levothyroxine 25 mcg tablet take 1 tablet by oral route every day 25 MCG - Active Diovan 80 mg tablet take 1 tablet by oral route every day 80 MG - Active tamoxifen 10 mg tablet take 1 tablet by oral route 2 times every day in the morning and evening 10 MG - Active Dyazide 37.5 mg-25 mg capsule take 1 capsule by oral route every day - Active fenofibrate nanocrystallized 48 mg tablet take 1 tablet by oral route every day 48 MG - Active carbidopa 10 mg-levodopa 100 mg tablet take 1 tablet by oral route 3 times every day 1.00 tablet - Active atorvastatin 10 mg tablet take 1 tablet by oral route every day 10 MG - Active metformin ER 500 mg tablet,extended release 24 hr take 2 tablet by oral route every day with the evening meal 1000 MG - Active baclofen 10 mg tablet take 1 tablet by oral route 4 times every day 10 MG - Active tramadol 50 mg tablet take 1 tablet by oral route every 6 hours as needed 50 MG - Active Aspirin Low Dose 81 mg tablet,delayed release take 1 tablet by oral route every day 81 MG - Active vitamin A 8,000 unit capsule take 1 capsule by oral route every day - Active omeprazole 10 mg capsule,delayed release take 2 capsule by oral route every day before a meal 20 MG - Active Claritin 10 mg tablet take 1 tablet by oral route every day 10 MG - Active Mobic 15 mg tablet take 1 tablet by oral route every day - No Longer Active Procedures Procedure Date Office/outpatient visit,est, mod 2014 Office/outpatient visit,est, mod 2013 Omnipaque, 200-299 mg/ml, per ml 2013 Kenalog Triamcinolone acetonide inj Injection Transforaminal, single, lumbar /sacral SNRB Office/outpatient visit,new, mod 2013 Office/outpatient visit,est, mod 2013 Fluoroscopic Guidance; non-spinal Omnipaque, 200-299 mg/ml, per ml 2013 Kenalog Triamcinolone acetonide inj Asp/inject Minor joint or bursa 014 X-ray exam Lumbar 2-3 views Office/outpatient visit,est, mod 2013 X-ray exam Lumbar 4+ views Office/outpatient visit,est, mod 2011 Office/outpatient visit,est, mod 2011 Office/outpatient visit,est, mod 2010 Office/outpatient visit,est, mod 2010 Office/outpatient visit,est, mod 2010 Office/outpatient visit,est, mod 2010 Postop followup visit Chest x-ray, two views Postop followup visit Postop followup visit Office/outpatient visit,est, low 2009 Drain/inject major jointor bursa 2009 Depo Medrol Methylprednisolone 40 MG inj Low back disk surgery/decompress 2009 Low back disk surgery/decompress 2009 Office/outpatient visit,est, mod 2009 Office/outpatient visit,est, mod 2009 Drain/inject major jointor bursa 2009 Depo Medrol Methylprednisolone 40 MG inj Office/outpatient visit,est, mod 2009 Drain/inject major jointor bursa 2009 Depo Medrol Methylprednisolone 40 MG inj MRI of lumbar spine, W/Wo Office/outpatient visit,est, mod 2009 X-ray exam lower spine 2-3 views 2009 Office/outpatient visit,est, mod 2009 Drain/inject major jointor bursa 2009 Depo Medrol Methylprednisolone 40 MG inj Office/outpatient visit,[facility], [facility] 2009 X-ray exam lower spine 2-3 views 2009 Advance Directives Directive Yes / No Effective Date File Name No Information Encounters Encounter Description Practice Location Reason(s) For Visit Diagnoses Date Provider Providers Copied on Encounter [facility], [address], [id number], [phone] [facility] No Information 6 Dorothy Mak. [address], [id number] , [place]. tel: [phone] [facility], [address], [id number], [place] [phone] [facility] No Information 2 5 Dorothy Mak. [address], [id number] , [place]. tel: [phone] Office/outpa tient visit,est, [facility], [address], [id number], [place] [phone] [facility] Bulging lumbar discLumbar radiculopathyLumb ar spondylosis 6 5 Dorothy Mak. [address], [id number] , [place]. tel: [phone] Office/outpa tient visit,est, mod [facility], [address] [address], [place], [place], [id number], [place] tel:[phone] [facility] Lumbosacral radiculitisBulgin g lumbar disc 4 Dorothy Mak. [address] [facility], [address], [place], [place], [address] , [place]. tel: [phone] [facility], [address] [address], [place], [place], [address], [place] tel:[phone] [facility] No Information 4 [facility]. [address] [facility], [address], [place], [place], [address] , [place]. tel: [phone] [facility], [address] [address], [place], [place], [address], [place] tel:[phone] [facility] lumbar spine (chief complaint) LUMB/LUMBOSAC DISC DEGENPOSTLAMINECT SYND-LUMBARSpinal Stenosis Lumbar WO Neurogenic ClaudicationLUMBA GO 4 Leslie Zachary. [address] [facility], [facility] [address], [place], [place], [address] , [place]. tel: [phone] [facility], [address] [address], [place], [place], [address], [place] [phone] [facility] LUMB/LUMBOSAC DISC DEGEN 4 Leslie Zachary. [address] [facility], [address], [place], [place], [address] , [place]. tel: [phone] Office/outpa tient visit,new, [facility], [address] [address], [place], [place], [address], [place] tel:[phone] [facility] lumbar spine (chief complaint) LUMBAGOSacroiliac inflammationPOSTL AMINECT SYND-LUMBARLUMB/L UMBOSAC DISC DEGEN 4 Leslie Zachary. [address] [facility], [address], [place], [place], [address] , [place]. tel: [phone] Office/outpa tient visit,est, [facility], [address] [address], [place], [place], [address], [place] tel:[phone] [facility] DISORDER OF COCCYX NECLUMBAGO 4 Dorothy Mak. [address] [facility], [address] [address], [place], [place], [address] , [place]. tel: [phone] [facility], [address] [address], [place], [place], [address], [place] tel:[phone] [facility] DISORDER OF COCCYX NEC 4 Leslie Zachary. [address] [facility], [address] [address], [place], [place], [address] , [place]. tel: [phone] Office/outpa tient visit,est, [facility], [address], [id number], [place] tel:[phone] [facility] BackacheDISORDER OF COCCYX NEC 4 Dorothy Mak. [address] [facility], [address] [address], [place], [place], [address] , [place]. tel: [phone] Office/outpa tient visit,est, [facility], [address] [address], [place], [place], [address], [place] tel:[phone] [facility] ARTHRODESIS STATUSRadiculitis , Thoracic or LumbarSpinal Stenosis Lumbar WO Neurogenic Claudication 2 Dorothy Mak. [address] [facility], [address] [address], [place], [place], [address] , [place]. tel: [phone] Office/outpa tient visit,est, [facility], [address], [id number], [place] tel:[phone] [facility] PAIN IN THORACIC SPINERadiculitis, Thoracic or LumbarLUMBAGOPOST LAMINECT SYND-LUMBAR Braxton-2 5 2 Dorothy Mak. [address] [facility], [address] [facility], [place], [place], [address] , [place]. tel:[phone] Office/outpa tient visit,est, [facility], [address] [address], [place], [place], [address], [place] tel:[phone] [facility] LUMBAGOPOSTLAMINE CT SYND-LUMBARPAIN IN THORACIC SPINELUMBOSACRAL NEURITIS NOS Dec-2 7- 1 Dorothy Mak. [address] [facility], [address] [facility], [place], [place], [address] , [place]. tel: [phone] Office/outpa tient visit,est, [facility], [address] [address], [place], [place], [address], [place] tel:[phone] [facility] LUMBAGOPOSTLAMINE CT SYND-LUMBARLUMBOS ACRAL NEURITIS NOS May-0 2- 1 Dorothy Mak. [address] [facility], [address] [facility], [place], [place], [address] , [place]. tel: [phone] Office/outpa tient visit,est, [facility], [address] [address], [place], [place], [address], [place] [phone] [facility] LUMBAGOPOSTLAMINE CT SYND-LUMBAR Sep-1 3 1 Dorothy Mak. [address] [facility], [address] [facility], [place], [place], [address] , [place]. tel: [phone] Office/outpa tient visit,est, [facility], [address] [address], [place], [place], [address], [place] tel:[phone] [facility] LUMBOSACRAL NEURITIS NOSLUMBAGO Jose Angel-0 2-201 1 Dorothy Mak. [address] [facility], [address] [address], [place], [place], [address] , [place]. tel: [phone] [facility], [address], [id number], [place] [phone] [facility] LUMBOSACRAL NEURITIS NOSLUMBAGOPOSTLAM INECT SYND-LUMBARCHEST PAIN NOS 1 Dorothy Mak. [address] [address], [place], [place], [address] , [place]. tel: [phone] [facility], [address] [address], [place], [place], [address], [place] tel:[phone] [facility] POSTLAMINECT SYND-LUMBARLUMBAG OLUMBOSACRAL NEURITIS NOS 1 Dorothy Mak. [address] [address], [place], [place], [address] , [place]. tel: [phone] Office/outpa tient visit,est, low [facility], [address], [id number], [place] tel:[phone] [facility] LUMBAR DISC DISPLACEMENTSpina l Stenosis Lumbar WO Neurogenic ClaudicationENTHE SOPATHY OF HIPJOINT PAIN-PELVIS - 0 Dorothy Mak. [address] [address], [place], [place], [address] , [place]. tel: [phone] [facility], [address], [id number], [place] tel:[phone] [facility] Spinal Stenosis Lumbar WO Neurogenic ClaudicationLUMB/ LUMBOSAC DISC DEGENLUMBOSACRAL NEURITIS NOS 0 Dorothy Mak. [address], [address] , [place]. tel: [phone] [facility], [address], [id number], [place] tel:[phone] [facility] Spinal Stenosis Lumbar WO Neurogenic ClaudicationLUMB/ LUMBOSAC DISC DEGENLUMBOSACRAL NEURITIS NOS 0 Dorothy Mak. [address] [facility], [address], [place], [place], [address] , [place]. tel: [phone] Office/outpa tient visit,est, [facility], [address] [facility] [address], [place], [place], [address], [place] [phone] [facility] No Information 0 Dorothy Mak. [address] [facility], [facility] [address], [place], [place], [address] , [place]. tel: [phone] Office/outpa tient visit,est, [facility], [address] [facility] [address], [place], [place], [address], [place] [phone] [facility] No Information 0 Dorothy Mak. [address] [facility] [address], [place], [place], [address] , [place]. tel: [phone] Office/outpa tient visit,est, [facility], [address] [facility] [address], [place], [place], [address], [place] [phone] [facility] No Information 0 Dorothy Mak. [address] [facility], [facility] [address], [place], [place], [address] , [place]. tel: [phone] [facility], [address] [facility] [address], [place], [place], [address], [place] [phone] [facility] No Information 0 [facility]. [address] [facility], [address], [place], [place], [address] , [place]. tel:[phone] Referring Provider: Obdulio Medina, [address] [facility] [address], [place], [address] . tel:[phone] Office/outpa tient visit,est, [facility], [address] [facility] [address], [place], [place], [address], [place] tel:[phone] [facility] No Information 0 Dorothy Mak. [address] [facility], [address] [facility], [place], [place], [address] , . tel: [phone] Office/outpa tient visit,[facility], [address], [id number], [phone] [facility] No Information 0 Dorothy Mak. [address] [facility], [address], [place], [place], [address] , [place]. tel: [phone] Office/outpa tient visit,[facility], [address], [id number], [phone] [facility] No Information 0 Dorothy Mak. [address] [facility], [address], [id number] , . tel: [phone] Family History Family Member Type Diagnosis Age At Onset Problem (finding) Family history of Arthr itis Father Problem (finding) Heart disease Problem (finding) Family history of hyper tension Problem (finding) Family history of Cance r, unknown Maternal grandmother Problem (finding) stroke Problem (finding) Family history of Diabetes mellitus Immunizations Vaccine Date Status Comments Influenza, seasonal, injecta ble (flu vaccine tv sp 6258-0441 (5 yr+) 45 mcg (15 mcg x 3)/0.5 mL IM susp) refused Source: [facility] Unspecified Payers Payer name Insurance type Covered republican ID Authoriza timaryann(s) [facility] CI [id number] Social History Type Description Quantity Date Captured Comments Sex Female Smoking Status No Information Chief Complaint And Reason For Visit No Information Reason For Referral Reason For Referral No Information Plan Of Treatment Date Type Action Status Referral Ordered: X-ray exam Lumbar 2-3 views ordered Referral Ordered: Other Appointment date/timeframe: 07/22/2013 ordered Patient Education Herniated Disc: After Y our Visit completed Patient Education Body Mass Index: After Your Visit completed History Of Present Illness Encounter Date Complaint History Of Prese nt Illness lumbar spine Bilateral lumbar S1 selective nerve root block. lumbar spine Nidhi Martines is a 53 year old female. She presents with pain. The problem is worse. The pain is described as stabbing and numbness. She rates her current pain as 7/10. The symptoms are aggravated by daily activities. Nidhi states that the symptoms are relieved by medication. Functional Status Date Functional Assessmen t No Information Instructions Date Instruction Additional Infor mation No Information Assessments Type Assessment Date No Information Patient Care Teams Name Effective Dates (start - stop) Status Members No Information
== END 2024-08-13 09:46 | disposition home or self-care (01) ==
LOC: ANHAUDIO 09:45
PROVIDERS: PCP Nurse Practitioner Adult Health; Visit Provider Internal Medicine Endocrinology, Diabetes & Metabolism
DX: H90.3 Sensorineural hearing loss, bilateral (principal); Z46.1 Encounter for fitting and adjustment of hearing aid; H93.8X3 Other specified disorders of ear, bilateral; H93.292 Other abnormal auditory perceptions, left ear; H93.19 Tinnitus, unspecified ear; Q96.9 Turner's syndrome, unspecified
CPT/HCPCS: 92557; 92567

== ENCOUNTER 2024-09-09 10:21 | Outpatient (CLI) | payer OTHER, SELFPAY ==
--- OUTSIDE RECORDS SUMMARY | 2024-09-09 12:13 | XMS_ITS | Referral Summary ---
Author Organization [facility] Address [address] [place] [address] Care Team Providers Care Juvenile Corrections Officer Name Role Phone Itzel Suarez NP Primary Care Provider [phone] Encounters Date Type Department Care Team Description 09/03/2024 9:45 AM CDT Office Visit [facility] [address] [place] [address] Oc Kelly MD ARIAS (dyspnea on exertion) (Primary Dx); Diastolic dysfunction; Hypertension associated with type 2 diabetes mellitus (HCC); ALAN on CPAP; Batista syndrome; Mixed dyslipidemia 07/25/2024 Orders Only [facility] Cardiology [address] [place] [address] Itzel Suarez NP from Last 3 Months Allergies Active Allergy Reactions Criticality Noted Date Comments Exenatide Microspheres Unknown 02/24/2019 Morphine Sulfa (Sulfonamide Antibiotics) Swelling Medium 2009 Sulfanilamide Other (See comments) Reaction: Unknown, Tetracycline Other (See comments),Rash Reaction: Unknown, , Reaction: RASH, Tetracyclines Rash Medium 2009 Medications vit C-vit S-keadcp-dydw-lutei n (PRESERVISION LUTEIN) 226 mg-200 unit -5 mg-0.8 mg capsule 0 0 04/09/20 13 Active omeprazole (PriLOSEC) 10 mg capsule 10 mg. 0 03/15/20 12 Active Additional Information Patient not taking.Reported on 09/03/2024 atorvastatin (LIPITOR) 10 mg tablet take 1 tablet (10MG) by oral route every day 0 07/25/19 13 Active Additional Information Patient taking differently: 20 mg oral Daily, Reported on 09/03/2024 fenofibrate nanocrystallized (TRICOR) 48 mg tablet take 1 tablet (48MG) by oral route every day 0 07/25/19 13 Active Additional Information Patient not taking.Reported on 09/03/2024 cholecalciferol (VITAMIN D3) 4,000 unit capsule daily 0 0 10/19/19 16 Active vitamin E 400 unit capsule take 1 daily 0 0 10/19/19 16 Active dulaglutide (TRULICITY) 0.75 mg/0.5 mL pen injector weekly on Sunday 0 0 10/19/19 16 Active Additional Information Patient not taking.Reported on 09/03/2024 rOPINIRole (REQUIP) 0.25 mg tablet 2 tabs nightly 0 0 10/19/19 16 Active Additional Information Patient not taking.Reported on 09/03/2024 meloxicam (MOBIC) 15 mg tablet take 1 tablet by oral route every day 0 0 10/19/19 16 Active Additional Information Patient not taking.Reported on 09/03/2024 vitamin A 8,000 unit capsule take 1 capsule by oral route every day 0 0 10/19/19 16 Active Additional Information Patient not taking.Reported on 09/03/2024 metFORMIN (GLUMETZA) 500 mg 24 hr tablet 2 tabs nightly with a meal 0 0 10/19/19 16 Active levothyroxine (SYNTHROID, LEVOTHROID) 125 mcg tablet take 1 tablet by oral route every day 0 0 10/19/19 16 Active omega-3 fatty acids (FISH OIL CONCENTRATE) 1,000 mg capsule 1 capsule BID 0 0 10/19/19 16 Active Additional Information Patient not taking.Reported on 09/03/2024 calcium-vitamin D3-vitamin K (CALCIUM FOR WOMEN) 500-100-40 mg-unit-mcg tablet,chewable 1 tab BID 0 0 10/19/19 16 Active magnesium oxide (MAG-OX) 250 mg (150.8 mg elemental) tabletIndications:h ypomagnesemia 250 mg daily Act gerson cranberry 400 mg capsule Take by mouth Active valsartan-hydroCHLO ROthiazide (DIOVAN-HCT) 160-12.5 mg per tabletIndications:h ypertension Take 1 tablet by mouth daily Active pramipexole (MIRAPEX) 0.5 mg tabletIndications:R LS (restless legs syndrome) TAKE 1 TABLET AT BEDTIME 90 tablet 09/11/19 20 Active aspirin 81 mg enteric coated tablet Take 1 tablet (81 mg total) by mouth daily 30 tablet 11 09/04/19 25 026 Active empagliflozin (JARDIANCE) 10 mg tablet Take 1 tablet (10 mg total) by mouth daily 30 tablet 12 09/04/19 25 Active lisinopril (PRINIVIL,ZESTRIL) 2.5 mg tablet Take 2.5 mg by mouth daily 025 Discontin ued(Dupli marty order) Active Problems Problem Noted Date Diagnosed Date [...] on file Legal 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 Gender Identity Not on file Sexual Orientation Not on file Last Filed Vital Signs Vital Sign Reading Time Taken Comments Blood Pressure 120/76 09/03/2024 9:51 AM CDT Pulse 85 09/03/2024 9:51 AM CDT Temperature 36.6 C (97.8 F) 08/29/2023 10:56 AM CDT Respiratory Rate - - Oxygen Saturation 97% 09/03/2024 9:51 AM CDT Inhaled Oxygen Concentration - - Weight 64.4 kg (142 lb) 09/03/2024 9:51 AM CDT Height 149.9 cm (4' 11 ) 09/03/2024 9:51 AM CDT Body Mass Index 28.68 09/03/2024 9:51 AM CDT Plan of Treatment Not on file Procedures Procedure Name Priority Date/Time Associated Diagnosis Comments POCT LIPID PANEL Routine 09/03/2024 9:40 AM CDT Mixed dyslipidemia ELECTROCARDIOGRAM REPORT Routine 09/03/2024 ARIAS (dyspnea on exertion) TRANSTHORACIC ECHO (TTE) COMPLETE W DOPPLER/CF Routine 06/16/2024 1:31 PM PROFESSIONAL HOUSING CONSULTANT DIAGNOSTIC MAMMOGRAM BILATERAL W ELKIN Routine 04/15/2014 12:00 AM CDT from Last 3 Months or Most Recently Relevant to Health Maintenance Results * POCT lipid panel (09/03/2024 9:40 AM CDT) Cholesterol, POC 140 mg/dL HDL, POC 38 mg/dL Triglycerides, POC 642 mg/dL LDL Cholesterol POC n/a mg/dL Chol/HDL Ratio, POC n/a Non-HDL Cholesterol, POC 102 mg/dL Cholesterol Total, POC 140 mg/dL Capillary blood 09/03/2024 9 :40 AM CDT Oc Kelly MD POINT OF CARE TEST ORDERABLES Fi nal Result * Electrocardiogram Report (09/03/2024) 09/03/2024 Oc Kelly MD ECG ORDERABLES Final Result * Transthoracic Echo (TTE) Complete W Doppler/CF (06/16/2024 1:31 PM PROFESSIONAL HOUSING CONSULTANT) Anatomical Region Laterality Modality Ultrasound Itzel Suarez MATT CV ECHO PROCEDURES Final Resul t * [...] Requesting: RUBEN BAH M.D. Requesting Requesting ID: [id number] Attending Attending ID: [id number] Completed Time: 04/15/2014 4:26 PM Dictated Time: [...] Requesting: RUBEN BAH M.D. Requesting Requesting ID: [id number] Attending Attending ID: [id number] Completed Time: 04/15/2014 4:26 PM Dictated Time: [...] Report To 3 FAX: [facility] Order #: [id number] Historical Provider MD HALLMAN MAMMO PROCEDURES Reyna l Result from Last 3 Months or Most Recently Relevant to Health [place] [address] [facility] [place] [address] [facility] [id number] [place] [address] [facility] [id number] Member Subscriber Plan / Payer (Ef fective 2020-Present) Name:Nidhi Martines Member ID:[id number] Relation to Subscriber:Self Name:Nidhi Martines Subscriber ID:[id number] Payer ID:[id number] Type:[employer] HMO/PPO Address: [facility] [id number] [id number] Care Teams Juvenile Corrections Officer Relationship Specialty Start Date End Date Itzel Suarez NP [facility] [place] [address] PCP - General Nurse Practitioner 09/03/24
--- OUTSIDE RECORDS SUMMARY | 2024-09-09 12:13 | XMS_ITS ---
Author Organization [facility] neelam Address [address] [address] Care Team Providers Care Brush Fabrication Supervisor Name Role Phone Jaqui Lopez Unavailable Unav ailable Allergies No Known Allergies REASON FOR VISIT EMR-[facility] Medications Medication SIG (Take, Route, Frequency, [...] Active Encounters Encounter Location Date Provider Diagnosis [facility] [address] [facility] [facility] [address] [address] 04/08/2023 zzzzProvider zzzzMigration Plan Of Treatment No Information Progress Notes * Nidhi VASQUEZ MDOB:[birth year] (63 yo F)Acc No.[id number]:04/08/2023 Patient: Frannie Nidhi CULP :1960 A ge:62 Y S ex:Female Address:[address] [place] [address], [address] Subjective: * Chief Complaints: * E MR-Raphael * Medical History: * Painter Hand History: M igrated GYNHistory M enstrual:: , Menopause Status: Postmenopausal, . 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
--- OUTSIDE RECORDS SUMMARY | 2024-09-09 12:13 | XMS_ITS | CONTINUITY OF CARE DOCUMENT ---
Author Name lv awan Address Unknown Organization [facility] Address [address] [place] [address] [address] [place] [address] Phone [phone] Care Team Providers Care It Program Engagement Director Name Role Phone Steve Aguilar MD Unavailable [phone] Steve Aguilar MD Unavailable [phone] INSURANCE PROVIDERS Payer name Policy type / Coverage type [place] red republican [place] [id number] PPO Other [id number]
--- OUTSIDE RECORDS SUMMARY | 2024-09-09 12:13 | XMS_ITS | Encounter Summary ---
Author Organization [facility] Address [address] [place] [address] Phone Care Team Providers Care Laceworker Name Role Phone No, Physician Primary Care Provider Itzel Suarez NP Primary Care Provider [phone] Encounter Details Date Type Department Care Team [...] on file Legal Sex Female 1:39 AM SPEARER Gender Identity Not on file Sexual Orientation Not on file documented as of this encounter Plan of Treatment Not on file documented as of this encounter Procedures Procedure Name Priority Date/Time Associated Diagnosis Comments SLEEP LAB/STUDY - RESULT 05/08/2022 5:10 PM SPEARER documented in this encounter Results * SLEEP LAB/STUDY - RESULT (05/08/2022 5:10 PM SPEARER) us Provider Scanning Final Result documented in this encounter Visit Diagnoses Not on filedocumented in this encounter Care Teams Laceworker Relationship Specialty Start Date End Date No, Physician PCP - General 12/11/23 09/02/24 Itzel Suarez NP [facility] [place] [address] PCP - General Nurse Practitioner 09/03/24 documented as of this encounter
--- OUTSIDE RECORDS SUMMARY | 2024-09-09 12:13 | XMS_ITS | Clinical Summary ---
Author Organization [facility] Address [address] [place] [address] Care Team Providers Care Tape Rules Printing Machine Operator Name Role Phone Itzel Suarez NP Primary Care Provider [phone] Allergies Active Allergy Reactions Criticality Noted Date Comments Exenatide Microspheres Unknown 02/24/2019 Morphine Sulfa (Sulfonamide Antibiotics) Swelling Medium 2009 Sulfanilamide Other (See comments) Reaction: Unknown, Tetracycline Other (See comments),Rash Reaction: Unknown, , Reaction: RASH, Tetracyclines Rash Medium 2009 Medications vit C-vit E-spuveo-zqkw-lutei n (PRESERVISION LUTEIN) 226 mg-200 unit -5 [...] Description 09/03/2024 9:45 AM CDT Office Visit [facility] Medical [facility] [address] [place] [address] Oc Kelly MD ARIAS (dyspnea on exertion) (Primary Dx); Diastolic dysfunction; Hypertension associated with type 2 diabetes mellitus (HCC); ALAN on CPAP; Batista syndrome; Mixed dyslipidemia 07/25/2024 Orders Only [facility] [address] [place] [address] Itzel Suarez NP from Last 3 Months [...] on file 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 Gender Identity Not on file Sexual Orientation [...] 09/03/2024 9:51 AM CDT Plan of Treatment Health Maintenance Due Date Last Done Comments Albumin Creatinine Ratio, Urine 1960 Cervical Cancer Screening 1960 Colon Cancer Screening-Colonoscopy 1960 Depression Screening 1960 Hemoglobin A1C 1960 Hepatitis C Screening 1960 eGFR 1960 Dilated Eye Exam 1960 Foot Exam 1960 DTaP/Tdap/Td Vaccine (1 - Tdap) 1973 Hepatitis B Screening 1980 Regular Well Visit/Exam 18-64 1980 Zoster Vaccine (1 of 2) 2012 Pneumococcal vaccine <65 (2 of 2 - PCV) 06/22/2021 06/22/2020 Breast Cancer Screening-Mammogram 02/03/2022 02/03/2021, 04/15/2014, 04/09/2013 Covid-19 Vaccine (2023-2 5 season) 2024 10/25/2021, 03/25/2021, 09/15/2020, Additional history exists Influenza Vaccine (#1) 2024 , 03/29/2021, 03/31/2020, Additional history exists Lipid Panel 09/03/2025 09/03/2024 Procedures Procedure Name Priority Date/Time Associated Diagnosis Comments POCT LIPID PANEL Routine 09/03/2024 9:40 AM CDT Mixed dyslipidemia ELECTROCARDIOGRAM REPORT Routine 09/03/2024 ARIAS (dyspnea on exertion) TRANSTHORACIC ECHO (TTE) COMPLETE W DOPPLER/CF Routine 06/16/2024 1:31 PM CLIP RIVETER DIAGNOSTIC MAMMOGRAM BILATERAL W ELKIN Routine 04/15/2014 [...] Capillary blood 09/03/2024 9 :40 AM CDT us Oc Kelly MD POINT OF CARE TEST ORDERABLES Fi nal Result * Electrocardiogram Report (09/03/2024) 09/03/2024 us Oc Kelly MD ECG ORDERABLES Final Result * Transthoracic Echo (TTE) Complete W Doppler/CF (06/16/2024 1:31 PM CLIP RIVETER) Anatomical Region Laterality Modality Ultrasound us Itzel Suarez NP CV ECHO PROCEDURES Final [...] Requesting: RUBEN BAH M.D. Requesting Requesting ID: [id number] Attending Attending ID: [id number] Completed Time: 04/15/2014 4:26 PM Dictated Time: [...] Requesting: RUBEN BAH M.D. Requesting Requesting ID: [id number] Attending Attending ID: [id number] Completed Time: 04/15/2014 4:26 PM Dictated Time: [...] Most Recently Relevant to Health Maintenance Insurance [facility] CHOICE [facility] HMO/PPO Address: [facility] [address] [place] [address] [facility] [address] [place] [address] [facility] [id number] Care Teams Tape Rules Printing Machine Operator Relationship Specialty Start Date End Date Itzel Suarez NP [facility] [place] [address] PCP - General Nurse Practitioner 09/03/24
--- OUTSIDE RECORDS SUMMARY | 2024-09-09 12:14 | XMS_ITS ---
Author Organization [facility] Address [address] [place] [address] Care Team Providers Care Latin Teacher Name Role Phone zzzzMigration, zzzzProvider Unavailable Unav ailable REASON FOR VISIT EMR-Raphael Encounters Encounter Location Date Provider Diagnosis [facility] [address] [facility] [address] [place] [address] 04/07/2023 zzzzProvider zzzzMigration Plan Of Treatment Medication [...] Oral for 30 11/14/2012 12/14/2012 *Reorder from [facility] for eRx and Interaction Alerts* Progress Notes * Nidhi VASQUEZ MDOB:[birth year] (63 yo F)Acc No.[id number]:04/07/2023 Patient: Juan SONice Julia :1960 A ge:62 Y S ex:Female Address:[address] [place] [address] * Refills Stop Diovan Tablet, 80 mg, [...] Generated for Natan rockwell/Clau/Reuben on: 0 09/09/2024 12:14 PM CDT
--- OUTSIDE RECORDS SUMMARY | 2024-09-09 12:14 | XMS_ITS | Patient Health Record ---
Author Organization [facility] Address [address] [place] [address] Support Name Relationship Address Phone Nidhi Martines Guarantor Unknown Allergies No Known Allergies Reason For Referral No Information Medications Medication SIG (Take, Route, Frequency, Duration) Notes Start Date End Date Status metFORMIN HCl ER 500 MG TAKE 2 TABLETS BY MOUTH DAILY WITH EVENING MEALS Oral 11/10/2013 Active Sinemet 500 /200 mg Once daily in evening Oral *Pick strength-form from [employer] for eRX* Active Tamoxifen Citrate 20 MG take 1 tablet (20 mg) by oral route once daily Oral 1 Active Vitamin D 4000 IU DAILY *Pick strength-form from [employer] for eRX* Active Problems Problem Type SNOMED Code ICD Code Onset Dates Problem Status W/U Status Risk Notes Problem Renal disorder due to type 2 diabetes mellitus (366477661) Diabetes with other specified manifestations, type II or unspecified type, not stated as uncontrolled (250.80) 012 Active confirmed Associated with Metabolic Syndrome. Problem Mixed hyperlipidemia (915929507) Mixed hyperlipidemia (272.2) 012 Active confirmed Problem Lumbar post-laminectomy syndrome (393507693) Postlaminectomy syndrome, lumbar region (722.83) Active confirmed Has had 3 back surgeries since 1998 , ( with post op Staph Infection ) and 05/[address] Barr at [facility] . Multi levels lumbar fusion. 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 confirmed Problem Hyperlipidemia (79044786) Hyperlipidemia, unspecified (E78.5) 005 Active confirmed Problem Essential hypertension (17657106) Essential (primary) hypertension (I10) 005 Active confirmed Plan Of Treatment No Information Insurance Providers Payer Name Payer Address Payer Phone Subscriber Number Group Number Insured Name Patient Relationship to Insured Coverage Start Date Coverage End Date DO NOT USE [id number] Nidhi Martines Self - patient is the insured 2010 Medical (General) History Surgical History Surgery Date(Month/Year) Back surgery: 3 surgeries to date , Fusion of L4-5 , surgery in 2005 was complicated by post op infection., Date of Procedure: 1998,,; 2011-07-25 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
--- OUTSIDE RECORDS SUMMARY | 2024-09-09 12:14 | XMS_ITS | Data Portability ---
Author Organization [place] [facility] [employer], Main Office Address [address] [place] [address] Assessment No assessment recorded. Plan of Treatment Reminders Order Date Submit Date Provider Last Modified By Organization Details Last Modified Time Details Appointments None recorded. Lab CMP, serum or plasma 2022 023 [facility] (Lab), [address] [place], [address], 3 05:34:07 HbA1c (hemoglobin A1c), blood [address] (Lab), [address] [place], [address], 3 07:58:55 TSH, serum, reflex free T4 2022 023 [facility] (Lab), [address] [place], [address], 3 05:34:08 lipid panel, serum 2022 023 [facility] (Lab), [address] [place], [address], 3 05:34:07 vitamin B12 + folate, serum or blood 2022 023 [facility] (Lab), [address] [place], [address], 3 05:34:08 Referral None recorded. Procedures None recorded. Surgeries None recorded. Imaging None recorded. Medication Orders pramipexole 0.25 mg tablet 2022 023 [facility] #[id number], [address], [place], [id number], 3 14:52:19 valsartan 160 mg-hydrochl orothiazide 12.5 mg tablet 2022 023 [facility] #02754, [address], [place], [id number], 3 14:52:15 metformin 500 mg tablet 2022 023 [facility] #[id number], [address], [place], [id number], 3 14:52:18 Trulicity 1.5 mg/0.5 mL subcutaneou s pen injector 2022 023 [facility] #02864, [address], [place], [id number], 3 14:57:53 levothyroxi ne 88 mcg tablet 2022 023 [facility] #80762, [address], [place], [id number], 3 14:52:20 Patient TargetsNo targets recorded. Patient InstructionsNo instructions recorded. Reason for Referral None Reported. Results Created Date Observation Date Name Description Value Unit Range Abnormal Flag Note LastModifiedBy Organization Detail LastModifiedTime 03/14/20 21 03/14/2021 urina lysis , dipst ick Leukocytes (reference range: negative raf/ l) Modera te Not Available [facility] [address] , [address], [place], [address], 03/14/2021 14:05:44 03/14/20 21 03/14/2021 urina lysis , dipst ick Nitrite (reference rage: negative mg/dl) negati ve Not Available [address] , [address], [place], [address], 03/14/2021 14:05:44 03/14/20 21 03/14/2021 urina lysis , dipst ick Urobilinogen (reference range: 0.2-1 mg/dl) 0.2 Not Available [address] , [address], [place], [address], 03/14/2021 14:05:44 03/14/20 21 03/14/2021 urina lysis , dipst ick Protein (reference range: negative mg/dl) Trace Not Available [address] , [address], [place], [address], 03/14/2021 14:05:44 03/14/20 21 03/14/2021 urina lysis , dipst ick pH (reference range: 5-7) 5.5 Not Available [address] , [address], [place], [address], 03/14/2021 14:05:44 03/14/20 21 03/14/2021 urina lysis , dipst ick Blood (reference range: negative Thom/ l) Small Not Available [address] , [address], [place], [address], 03/14/2021 14:05:44 03/14/20 21 03/14/2021 urina lysis , dipst ick Specific [place] (reference range: 1.005-1.030) 1.025 Not Available [address] , [address], [place], [address], 03/14/2021 14:05:44 03/14/20 21 03/14/2021 urina lysis , dipst ick Ketone (reference range: negative mg/dl) Negati ve Not Available [address] , [address], [place], [address], 03/14/2021 14:05:44 03/14/20 21 03/14/2021 urina lysis , dipst ick Bilirubin (reference range: negative mg/dl) Negati ve Not Available [address] , [address], [place], [address], 03/14/2021 14:05:44 03/14/20 21 03/14/2021 urina lysis , dipst ick Glucose (reference range: negative mg/dl) Negati ve Not Available [address] , [address], [place], [address], 03/14/2021 14:05:44 03/14/20 21 03/14/2021 urina lysis , dipst ick Appearance Slight ly Cloudy Not Available [address] , [address], [place], [address], 03/14/2021 14:05:44 03/14/20 21 03/14/2021 urina lysis , dipst ick Color Yellow Not Available [address] , [address], [place], [address], 03/14/2021 14:05:44 03/15/20 21 03/15/2021 CULTU RE URINE urc ===== ===== ===== ===== ===== ===== ===== ===== ===== ===== ===== ===== ===== ===== ===== ===== ===== ===== ===== ===== ===== ===== ===== ===== CULTU RE NO.: [id number] Exam Statu s: Final Exam Type: CULTU [...] furan toin <=16 S 021K Not Available [facility] (Lab) [address] [place], [address], 03/17/2021 08:46:54 09/09/19 22 09/08/2021 MICRO ALBUM IN RANDO M URINE microalb <6.0 mg/L 0.0-16 .6 RESUL T IS LESS THAN REPOR TABLE RANGE OF ASSAY . Not Available [facility] (Lab) [address] [place], [address], 09/08/2021 18:48:41 09/09/19 22 09/08/2021 FOLAT E, SERUM /PLAS MA folate 10.4 NG/mL 2.76- Not Available [facility] (Lab) [address] [place], [address], 09/08/2021 16:14:30 09/09/19 22 09/08/2021 VITAM IN B12 (JAIMIE CASEY ) vb12 >1000 pg/mL 239-93 1 high Not Available [facility] (Lab) [address] [place], [address], 09/08/2021 16:14:28 09/09/19 22 09/08/2021 HEMOG LOBIN A1C HA1C 7.4 % 4.0-6. 0 high Diabe robert Scree marcos Crite hayley: <5.7% Consi stent with absen ce of diabe robert 5.7-6 .4% Consi stent with incre ased risk for diabe robert (pred iabet es) >OR=6 .5% Consi stent with diabe robert REFER ENCE: Diabe robert Care 2016, 39(Cuadra ppl.1 ):s13 -s22 Not Available [facility] (Lab) [address] [place], [address], 09/08/2021 14:20:29 09/09/19 22 09/08/2021 BASIC METAB OLIC PANEL sodium 138 mmol/ L 137-14 5 Not Available [facility] (Lab) [address] [place], [address], 09/08/2021 13:29:31 09/09/19 22 09/08/2021 BASIC METAB OLIC PANEL potassium 4.6 mmol/ L 3.5-5. 1 Not Available [facility] (Lab) [address] [place], [address], 09/08/2021 13:29:31 09/09/19 22 09/08/2021 BASIC METAB OLIC PANEL chloride 101 mmol/ L 98-107 Not Available [facility] (Lab) [address] [place], [address], 09/08/2021 13:29:31 09/09/19 22 09/08/2021 BASIC METAB OLIC PANEL carbon dioxide 29 mmol/ L 22-30 Not Available [facility] (Lab) [address] [place], [address], 09/08/2021 13:29:31 09/09/19 22 09/08/2021 BASIC METAB OLIC PANEL agap 12.6 mmol/ L 14-22 low Not Available [facility] (Lab) [address] [place], [address], 09/08/2021 13:29:31 09/09/19 22 09/08/2021 BASIC METAB OLIC PANEL glucose 138 mg/dL 70-99 high Not Available [facility] (Lab) [address] [place], [address], 09/08/2021 13:29:31 09/09/19 22 09/08/2021 BASIC METAB OLIC PANEL BUN 15 mg/dL 8-19 Not Available [facility] (Lab) [address] [place], [address], 09/08/2021 13:29:31 09/09/19 22 09/08/2021 BASIC METAB OLIC PANEL creatinine 0.54 mg/dL 0.66-1 .25 low Not Available [facility] (Lab) [address] [place], [address], 09/08/2021 13:29:31 09/09/19 22 09/08/2021 BASIC METAB OLIC PANEL GFR >60 Refer ence Range : [place] ge GFR Healt hy Adult : >60 [...] or ethni c subgr oups, such as Hisla nics. Outsi de the valid ated inna [...] s/kdo qi/gf r_cal culat or Not Available [facility] (Lab) [address] [place], [address], 09/08/2021 13:29:31 09/09/19 22 09/08/2021 BASIC METAB OLIC PANEL calcium 9.7 mg/dL 8.4-10 .2 Not Available [facility] (Lab) [address] [place], [address], 09/08/2021 13:29:31 09/09/19 22 09/08/2021 LIPID PANEL cholesterol 164 mg/dL 140-19 9 NIH RAÚL NSUS RECOM MENDA TION FOR MAYRA STERO L: ADULT CHILD LOW RISK: <200 <170 BORDE RLINE : <200- 239 ----- HIGH RISK: >240 >200 Not Available [facility] (Lab) [address] [place], [address], 09/08/2021 13:29:27 09/09/19 22 09/08/2021 LIPID PANEL triglyceride s 198 mg/dL 0-150 high NIH RAÚL NSUS REPOR T RECOM MENDA TION FOR TRIGL YCERI NORIS: ADULT CHILD LOW RISK: <150 ----- BODER LINE: 150-1 99 ----- HIGH RISK: >200 ----- Not Available [facility] (Lab) [address] [place], [address], 09/08/2021 13:29:27 09/09/19 22 09/08/2021 LIPID PANEL HDL cholesterol 39 mg/dL 40- low Not Available [facility] (Lab) [address] [place], [address], 09/08/2021 13:29:27 09/09/19 22 09/08/2021 LIPID PANEL [...] WILL NOT BE REPOR ROXANE. Not Available [facility] (Lab) [address] [place], [address], 09/08/2021 13:29:27 09/09/19 22 09/08/2021 HEPAT IC/LI GUTIERREZ PANEL alkaline phosphatase 93 U/L 38-126 Not Available [facility] (Lab) [address] [place], [address], 09/08/2021 13:29:25 09/09/19 22 09/08/2021 HEPAT IC/LI GUTIERREZ PANEL alanine aminotransfe rase 28 U/L 0-35 Not Available [facility] (Lab) [address] [place], [address], 09/08/2021 13:29:25 09/09/19 22 09/08/2021 HEPAT IC/LI GUTIERREZ PANEL aspartate aminotransfe rase 36 U/L 15-37 Not Available [facility] (Lab) [address] [place], [address], 09/08/2021 13:29:25 09/09/19 22 09/08/2021 HEPAT IC/LI GUTIERREZ PANEL bilirubin, total 0.70 mg/dL 0.20-1 .30 Not Available [facility] (Lab) [address] [place], [address], 09/08/2021 13:29:25 09/09/19 22 09/08/2021 HEPAT IC/LI GUTIERREZ PANEL bilirubin, conjugated (direct) 0.00 mg/dL 0.00-0 .30 Not Available [facility] (Lab) [address] [place], [address], 09/08/2021 13:29:25 09/09/19 22 09/08/2021 HEPAT IC/LI GUTIERREZ PANEL biliurubin,u ncong. (indirect) 0.50 mg/dL 0.00-1 .1 Not Available [facility] (Lab) [address] [place], [address], 09/08/2021 13:29:25 09/09/19 22 09/08/2021 HEPAT IC/LI GUTIERREZ PANEL total protein 7.0 g/dL 6.3-8. 2 Not Available [facility] (Lab) [address] [place], [address], 09/08/2021 13:29:25 09/09/19 22 09/08/2021 HEPAT IC/LI GUTIERREZ PANEL albumin 4.3 g/dL 3.4-5. 0 Not Available [facility] (Lab) [address] [place], [address], 09/08/2021 13:29:25 09/09/19 22 09/08/2021 HEPAT IC/LI GUTIERREZ PANEL globulin 2.7 g/dL 2.6-4. 2 Not Available [facility] (Lab) [address] [place], [address], 09/08/2021 13:29:25 09/09/19 22 09/08/2021 HEPAT IC/LI GUTIERREZ PANEL A/G ratio 1.6 ratio 1.0-2. 0 Not Available [facility] (Lab) [address] [place], [address], 09/08/2021 13:29:25 05/04/20 21 05/04/2021 elect destinee martel am No observ ation record ed. [id number] [facility] [address] , [address], [place], [address], 08/16/2022 22:28:41 05/05/20 21 XR, chest , 2 view [facility] [address] [place], [place] [address] [phone] Patimichael t Name: NIDHI GRIFFITH Access ion #: [id number] Sex: F : 1960 1 Locati [...] tely imaged here. Page 1 of 2 [facility] Name: NIDHI GRIFFITH Access ion #: [id number] Sex: F : 1960 1 Exam [...] 9:19 AM (CT) Page 2 of 2 [id number].[id number] [facility] (Imaging) [address] [place], [address], 08/16/2022 22:28:41 05/05/20 21 05/05/2021 XR, chest , 2 view No observ ation record ed. [id number] [facility] [address] [place] [address], [place], [address], 08/16/2022 22:28:41 Result Notes None recorded. 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 Not Available [facility] 3 22:27:02 History of malignant neoplasm of breast 906975942 Active 2020 9 Not Available [facility] 3 22:27:02 History of lumbar fusion 3614057835953 6 Active 2020 Not Available [facility] 3 22:27:02 Diabetes mellitus 62675909 Active 2020 Not Available [facility] 3 22:27:02 Sleep apnea 40610091 Active 2020 Not Available [facility] 3 22:27:02 Hyperlipid emia 00522351 Active 2022 MARINO Avalos [address], [address], [place], [address] , [employer] 3 09:23:46 Cobalamin deficiency 996415427 Active 2022 MARINO Avalos [address], [address], [place], [address] , [employer] [facility] 3 09:25:50 Hypothyroi dism 88502359 Active 2022 MARINO Avalos [address], [address], [place], [address] , [employer] 3 14:47:26 Restless legs 69536009 Active 2022 MARINO Avalos [address], [address], [place], [address] , [employer] [facility] 3 14:50:00 Hypertensi ve disorder 81855281 Active 2022 MARINO Avalos [address] [facility], [facility] [address], [place], [address] , [place] [facility] [employer] [facility] 14:51:14 Problem Notes None recorded. Procedures Surgical History Date Name Laterality Status Provider Name and Address Organization Details Recorded Time Tonsillectomy completed Not Available [facility] 08/16/2022 22:26:18 other completed Not Available [facility] 06/2022 22:26:18 Back Surgeries completed Not Available [facility] 08/16/2022 22:26:18 Imaging Results Imaging Date Name Status LastModified by Organization Details LastModified Time 05/05/2021 XR, chest, 2 view completed MIGRATION. [id number] [facility] [address] [facility], [place], [address], 08/16/2022 22:28:41 05/04/2021 electrocardiogram completed MIGRATION. [id number] [facility] [address] , [facility] [address], [place], [address], 08/16/2022 22:28:41 05/05/2021 XR, chest, 2 view completed MIGRATION. [id number] , [place], [address], 08/16/2022 22:28:41 Procedure Notes None recorded. Medical Equipment None Reported. Allergies Allergen ID Allergen Name Allergen Category Reaction Reaction Severity Criticality Documentation Date Start Date Code Code System Note Provider Name and Address Organization Details Recorded Time 19740 tetracycl ine medicatio n Not available Not available Not available 08/16/2022 57961 RxNorm Not Available [facility] 22:28:36 97257 Substance with sulfonami de structure and antibacte rial mechanism of action (substanc e) medicatio n Not available Not available Not available 08/16/2022 03481 8003 SNOMED Not Available [facility] 22:28:36 06150 Bydureon medicatio n Not available Not available Not available 08/16/2022 78488 64 RxNorm Not Available [facility] 3 22:28:36 Medications Name Sig Start [...] % 98 % 82 /min 98 [degF] 85339.2 2 g 140 mm[Hg] 80 mm[Hg] Not Available [facility] 3 22:26:27 Date Recorded Body mass index (BMI) Body height Oxygen saturation Oxygen saturation in Arterial blood by Pulse oximetry Heart rate Body temperature Body weight Systolic blood pressure Diastolic blood pressure Provider Name and Address Organization Details Last Updated DateTime 2 34.5 kg/m2 142.24 cm 97 % 97 % 88 /min 96.3 [degF] 39837.2 2 g 122 mm[Hg] 80 mm[Hg] Not Available [facility] 3 22:26:27 Date Recorded Body mass index (BMI) Body height Oxygen saturation Oxygen saturation in Arterial blood by Pulse oximetry Heart rate Body temperature Body weight Systolic blood pressure Diastolic blood pressure Provider Name and Address Organization Details Last Updated DateTime 2 35.9 kg/m2 142.24 cm 98 % 98 % 90 /min 96 [degF] 49982.7 8 g 132 mm[Hg] 70 mm[Hg] Not Available [facility] 3 22:26:27 Date Recorded Body height Provider Name an d Address Organization Details Last Updated DateTime 03/14/2021 142.24 cm Not Available [facility] 3 22:26:27 Date Recorded Body height Body mass index (BMI) Body weight Body temperature Heart rate Oxygen saturation Oxygen saturation in Arterial blood by Pulse oximetry Systolic blood pressure Diastolic blood pressure Provider Name and Address Organization Details Last Updated DateTime 3 142.24 cm 33 kg/m2 76172.0 8 g 98.4 [degF] 82 /min 100 % 100 % 142 mm[Hg] 80 mm[Hg] Jorge John CMA [employer] 3 14:35:54 Social History Question Answer Notes LastModified by Organizat ion Details LastModified Time Tobacco Smoking Status Never Smoker Leilani ramirez [employer] 08/21/2022 14:23:55 What Is Your Level Of Alcohol Consumption? None 3-4 Times Yearly [id number] Information not available 08/16/2022 What Is Your Level Of Caffeine Consumption? Occasional [id number] Information not available 08/16/2022 How Much Tobacco Do You Chew? None [id number] Information not available 08/16/2022 In The 14 Days Before Symptom Onset, Have You Had Close Contact With A Laboratory-confir med COVID-19 While That Case Was Ill? No [email or web address] Information not available 08/21/2022 In The 14 Days Before Symptom Onset, Have You Had Close Contact With A Person Who Is Under Investigation For COVID-19 While That Person Was Ill? No Information not available 08/21/2022 What Type Of Diet Are You Following? REGULAR [id number] Information not available 08/16/2022 Which Illicit Or Recreational Drugs Have You Used? None [email or web address] Information not available 08/21/2022 Do You Or Have You Ever Used E-cigarettes Or Vape? Never Used Electronic Cigarettes [email or web address] Information not available 08/21/2022 Do You Or Have You Ever Used Smokeless Tobacco? Never Used Smokeless Tobacco [id number] Information not available 08/16/2022 How Much Tobacco Do You Smoke? No [id number].99339 [id number] Information not available 08/16/2022 Do You Have Any Dietary Restrictions? No [email or web address] Information not available 08/21/2022 Sex: Unknown Functional Status Question Answer Note LastModified by Organizat ion Details LastModified Time What is your exercise level? Occasional [id number] Information not available 08/16/2022 Mental Status None recorded. Family History Relationship Description Onset Age of this Age Resolved Age Notes LastModified by Organization Details LastModified Time Mother Neuropathy [id number] Not available 08/16/2022 22:26:19 Mother Hypertensive disorder [id number] Not available 08/16/2022 22:26:19 Notes:cardiac issues - [...] 50 mcg/0.25mL dose 1 completed Not Available [facility] 08/16/2022 22:28:32 COVID-19, mRNA, LNP-S, PF, 100 mcg/0.5mL dose or 50 mcg/0.25mL dose 1 completed Not Available [facility] 08/16/2022 22:28:32 pneumococcal polysaccharide PPV23 1 completed Not Available [facility] 08/16/2022 22:28:32 Influenza, split virus, quadrivalent, preservative 0 completed Not Available [facility] 08/16/2022 22:28:32 Influenza, split virus, quadrivalent, PF 2 completed Not Available [facility] 08/16/2022 22:28:33 Past Encounters Encounter ID Performer Location Encounter Start Date Encounter Closed Date Diagnosis/Indication Diagnosis SNOMED-CT Code Diagnosis ICD10 Code Diagnosis Note [id number] S[facility] [place] [address] , [place] [address] 12/21/2020 00:00:00 12/21/2020 13:01:12 [id number] [facility] [place] [address] [place] [address] 03/14/2021 00:00:00 03/14/2021 14:21:07 [id number] S_G [facility] [place] [address] [place] [address] 05/04/2021 00:00:00 05/04/2021 15:32:47 [id number] [facility] [place] [address] [place] [address] 08/31/2021 00:00:00 08/31/2021 11:25:43 [id number] [facility] [place] [address] [facility] [address] [place] [address] 05/22/2022 00:00:00 05/22/2022 18:59:50 [id number] MARINO Avalos [facility] [place] [address] [facility] [address] [place] [address] 08/21/2022 14:23:32 08/21/2022 15:26:01 Diabetes mellitus 87788322 E11.9 (05/22/22) A1C 6.8Fasting AM sugars running around 130s.Belle nue with metformin 500mg TID and Trulicity 1.5mg weekly. Encouraged healthy eating/exe rcise. Hyperlipidemia 32324715 E78.5 Continue Atorvastat in 20mg daily. Adult heal th examination 719939805 Z00.00 Will get routine labs today. Covid vaccines- recommende d to keep up with boostersFl u vaccine- recommende d next fallTetanu s vaccine- recommende d; declined Pap- 01/2022 wnlColonos copy- due; will order in a few months, would like to hold for nowMammogr am- 03/2022 wnl Recommende d routine eye exams and dental cleanings. Cobalamin deficiency 190 695352 E53.8 Elevated on last labs, has not been on supplement for the last year. Hypothyroidism 38149199 E03.9 Recheck labs today. Restless legs 07725095 G 25.81 Stable. Continue pramipexol e. Hypertensive disorder 38 581970 I10 Continue to monitor. Health Concerns Section Related Observation LastModified by Organization Detai ls LastModified Time None Recorded Concern Status LastModified by Organization Details LastModified Time None Recorded Advance Directives Directive None Recorded Payers Encounter Date Sequence Insurance Name Policy Number Policy [place] Covered Member ID [place]iland Member ID Guarantor Name 08/21/2022 1 [employer] - NOW (INDEMNITY) [id number] Nidhi Martines [id number] OI Nidhi Martines Notes Date Note Type Note Provider Name and Address Organization Details Recorded Time 08/21/2022 text/html Pt. here for annual physical. No new concerns or complaints. MARINO Avalos [address] [facility], [facility] [address], [place], [address], [place] [employer] 08/21/2022 16:31:02 OBGyn Episode No OBEpisode recorded.
[2024-09-09 12:15] LABS: Free T4 Free Thyroxine 1.39 ng/dL (0.78-2.19)
== END 2024-09-09 10:22 | disposition home or self-care (01) ==
PROVIDERS: PCP Nurse Practitioner Adult Health; Referring Provider Internal Medicine Cardiovascular Disease; Visit Provider Internal Medicine Endocrinology, Diabetes & Metabolism
DX: E03.9 Hypothyroidism, unspecified (principal)
CPT/HCPCS: 36415; 84439; 84443

== ENCOUNTER 2024-09-16 08:53 | Outpatient (CLI) | payer OTHER, SELFPAY ==
--- OUTSIDE RECORDS SUMMARY | 2024-09-16 09:15 | XMS_ITS | CONTINUITY OF CARE DOCUMENT ---
Author Name lv awan Address Unknown Organization [facility] Address [address] [place] [address] [address] [place] [address] Phone [phone] Care Team Providers Care Commercial Administrator Name Role Phone Steve Aguilar MD Unavailable [phone] Steve Aguilar MD Unavailable [phone] INSURANCE PROVIDERS Payer name Policy type / Coverage type Martinton red republican ID [employer] PPO Other [id number]
--- OUTSIDE RECORDS SUMMARY | 2024-09-16 09:15 | XMS_ITS | Referral Summary ---
Author Organization [facility] Address [address] [place] [address] Care Team Providers Care Exhibit Specialist Name Role Phone Itzel Suarez NP Primary Care Provider [phone] Encounters Date Type Department Care Team Description 09/15/2024 Results Follow-Up [facility] Cardiology [address] [place] [address] [address] [place] [phone] Brooke Coleman NP 09/15/2024 Orders Only [facility]iology [address] [place] [address] [address] [place] [phone] Oc Kelly MD 09/03/2024 9:45 AM CDT Office Visit [facility] Cardiology [address] [place] [address] [address] [place] [phone] Oc Kelly MD ARIAS (dyspnea on exertion) (Primary Dx); Diastolic dysfunction; Hypertension associated with type 2 diabetes mellitus (HCC); ALAN on CPAP; Batista syndrome; Mixed dyslipidemia 07/25/2024 Orders Only [facility]iology [address] [place] [address] [address] [place] [phone] Itzel Suarez NP from Last 3 Months Allergies Active Allergy Reactions Criticality Noted Date Comments Exenatide Microspheres Unknown 02/24/2019 Morphine Sulfa (Sulfonamide Antibiotics) Swelling Medium 2009 Sulfanilamide Other (See comments) Reaction: Unknown, Tetracycline Other (See comments),Rash Reaction: Unknown, , Reaction: RASH, Tetracyclines Rash Medium 2009 Medications vit C-vit A-lrakcy-wvkc-lutei n (PRESERVISION LUTEIN) 226 mg-200 unit -5 [...] on file 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 Gender Identity Not on file Sexual Orientation [...] Procedure Name Priority Date/Time Associated Diagnosis Comments TSH Routine 09/09/2024 12:12 PM CDT POCT LIPID PANEL Routine 09/03/2024 9:40 AM CDT Mixed dyslipidemia ELECTROCARDIOGRAM REPORT Routine 09/03/2024 ARIAS (dyspnea on exertion) DIAGNOSTIC MAMMOGRAM BILATERAL W ELKIN Routine 04/15/2014 12:00 AM CDT from Last 3 Months or Most Recently Relevant to Health Maintenance Results * TSH (09/09/2024 12:12 PM CDT) Blood us Oc Kelly MD LAB BLOOD ORDERABLES Final Resul t * POCT lipid panel (09/03/2024 9:40 AM [...] Kelly MD ECG ORDERABLES Final Result * Diagnostic Mammogram Bilateral W Elkin (04/15/2014 [...] Requesting: RUBEN BAH M.D. Requesting Requesting ID: [id number] Attending Attending ID: [id number] Completed Time: 04/15/2014 4:26 PM Dictated Time: [...] Requesting: RUBEN BAH M.D. Requesting Requesting ID: [id number] Attending Attending ID: [id number] Completed Time: 04/15/2014 4:26 PM Dictated Time: [...] Most Recently Relevant to Health Maintenance Insurance [facility] [place] [address] [facility] [id number] [facility] [id number] Member Subscriber Plan / Payer (Ef fective 2020-Present) Name:Nidhi Martines Member ID:[id number] Relation to Subscriber:Self Name:Nidhi Martines Subscriber ID:[id number] Payer ID:[id number] Type:[employer] HMO/PPO Address: [place] [phone] Care Teams Exhibit Specialist Relationship Specialty Start Date End Date Itzel Suarez NP [address] [place] [address] [place] [address] PCP - General Nurse Practitioner 09/03/24
--- OUTSIDE RECORDS SUMMARY | 2024-09-16 09:15 | XMS_ITS | Patient Health Record ---
Author Organization [facility] Address [address] [facility] [address] [place] [address] Support Name Relationship Address Phone Nidhi Martines Guarantor Unknown [phone] Allergies No Known Allergies Reason For Referral No Information Medications Medication SIG (Take, Route, Frequency, Duration) Notes Start Date End Date Status metFORMIN HCl ER 500 MG TAKE 2 TABLETS BY MOUTH DAILY WITH EVENING MEALS Oral 11/10/2013 Active Sinemet 500 /200 mg Once daily in evening Oral *Pick strength-form from [facility] [employer] for eRX* Active Tamoxifen Citrate 20 MG take 1 tablet (20 mg) by oral route once daily Oral 1 Active Vitamin D 4000 IU DAILY *Pick strength-form from [facility] for eRX* Active Problems Problem Type SNOMED Code ICD Code Onset Dates Problem Status W/U Status Risk Notes Problem Renal disorder due to type 2 diabetes mellitus (737905228) Diabetes with other specified manifestations, type II or unspecified type, not stated as uncontrolled (250.80) 012 Active confirmed Associated with Metabolic Syndrome. Problem Mixed hyperlipidemia (753866677) Mixed hyperlipidemia (272.2) 012 Active confirmed Problem Lumbar post-laminectomy syndrome (804477866) Postlaminectomy syndrome, lumbar region (722.83) Active confirmed Has had 3 back surgeries since 1998 , ( with post op Staph Infection ) and 05/[address] [facility] at [facility] . Multi levels lumbar fusion. 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 Problem Hyperlipidemia (35633319) Hyperlipidemia, unspecified (E78.5) 005 Active confirmed Problem Essential hypertension (06378269) Essential (primary) hypertension (I10) 005 Active confirmed Plan Of Treatment No Information Insurance Providers Payer Name Payer Address Payer Phone Subscriber Number Group Number Insured Name Patient Relationship to Insured Coverage Start Date Coverage End Date DO NOT USE [id number] Nidhi Martines Self - patient is the insured 2010 Medical (General) History Surgical History Surgery Date(Month/Year) Back surgery: 3 surgeries to date , Fusion of L4-5 , surgery in 2005 was complicated by post op infection., Date of Procedure: 1998,,; 2011-07-25 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
--- OUTSIDE RECORDS SUMMARY | 2024-09-16 09:15 | XMS_ITS | Clinical Summary ---
Author Organization [facility] Address [address] [place] [address] Care Team Providers Care Plant Puller Name Role Phone Itzel Suarez NP Primary Care Provider [phone] Allergies Active Allergy Reactions Criticality Noted Date Comments Exenatide Microspheres Unknown 02/24/2019 Morphine Sulfa (Sulfonamide Antibiotics) Swelling Medium 2009 Sulfanilamide Other (See comments) Reaction: Unknown, Tetracycline Other (See comments),Rash Reaction: Unknown, , Reaction: RASH, Tetracyclines Rash Medium 2009 Medications vit C-vit Y-vigaou-ssci-lutei n (PRESERVISION LUTEIN) 226 mg-200 unit -5 [...] Department Care Team Description 09/15/2024 Results Follow-Up [facility] Cardiology [address] [place] [address] [address] [place] [phone] Brooke Coleman NP 09/15/2024 Orders Only [facility] Cardiology [address] [place] [address] [address] [place] [phone] Oc Kelly MD 09/03/2024 9:45 AM CDT Office Visit [facility] Cardiology [address] [place] [address] [address] [place] [phone] Oc Kelyl MD ARIAS (dyspnea on exertion) (Primary Dx); Diastolic dysfunction; Hypertension associated with type 2 diabetes mellitus (HCC); ALAN on CPAP; Batista syndrome; Mixed dyslipidemia 07/25/2024 Orders Only [facility] Cardiology [address] [place] [address] [address] [place] [phone] Itzel Suarez NP from Last 3 Months Immunizations Immunization Administration Dates Next Due Hep A, Adult 10/31/2023,08/29/2023 Typhoid Inactivated 08/29/2023 Surgical History Surgery Date Site/Laterality Comments OTHER SURGICAL HISTORY 2008 Left Cancer, breast: lumpectomy, XRT OTHER SURGICAL HISTORY 2008 Left Cancer, breast: lumpectomy, XRT Medical History [...] on file 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 Requesting Requesting ID: [id number] Attending Attending ID: [id number] Completed Time: 04/15/2014 4:26 PM Dictated Time: 04/15/2014 4:46 PM Transcribed Time: 04/15/2014 4:53 PM Signed by: AHASN MORRELL MD on 04/15/2014 5:44 PM Report [...] Requesting: RUBEN BAH M.D. Requesting Requesting ID: [id number] Attending Attending ID: [id number] Completed Time: 04/15/2014 4:26 PM Dictated Time: [...] Most Recently Relevant to [place] [address] [facility] [place] [address] [facility] [id number] [facility] [id number] Care Teams Plant Puller Relationship Specialty Start Date End Date Itzel Suarez NP [facility] [place] [address] PCP - General Nurse Practitioner 09/03/24
--- OUTSIDE RECORDS SUMMARY | 2024-09-16 09:15 | XMS_ITS | Encounter Summary ---
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 Gender Identity Not on file Sexual Orientation Not on file documented as of this encounter Plan of Treatment Not on file documented as of this encounter Procedures Procedure Name Priority Date/Time Associated Diagnosis Comments SLEEP LAB/STUDY - RESULT 05/08/2022 5:10 PM MOTOR VEHICLE TECHNICIAN documented in this encounter Results * SLEEP LAB/STUDY - RESULT (05/08/2022 5:10 PM MOTOR VEHICLE TECHNICIAN) us Provider Scanning Final Result documented in this encounter Visit Diagnoses Not on filedocumented in this encounter Care Teams Nursing Officer Relationship Specialty Start Date End Date No, Physician PCP - General 12/11/23 09/02/24 Itzel Suarez NP [facility] [place] [address] PCP - General Nurse Practitioner 09/03/24 documented as of this encounter
--- OUTSIDE RECORDS SUMMARY | 2024-09-16 09:15 | XMS_ITS | Data Portability ---
Author Organization [place] [facility], Main Office Address [address] [place] [address] Assessment No assessment recorded. Plan of Treatment Reminders Order Date Submit Date Provider Last Modified By Organization Details Last Modified Time Details Appointments None recorded. Lab CMP, serum or plasma 2022 023 [facility] (Lab), [address] [place], [address], 3 05:34:07 HbA1c (hemoglobin A1c), blood [address] (Lab), [address] [place], [address], 3 07:58:55 TSH, serum, reflex free T4 2022 023 [facility] (Lab), [address] [place], [address], 3 05:34:08 lipid panel, serum 2022 023 [facility] (Lab), [address] [place], [address], 3 05:34:07 vitamin B12 + folate, serum or blood 2022 023 [facility] (Lab), [address] [place], [address], 3 05:34:08 Referral None recorded. Procedures None recorded. Surgeries None recorded. Imaging None recorded. Medication Orders pramipexole 0.25 mg tablet 2022 023 [facility] #[id number], [address] [place], [place], [id number], 3 14:52:19 valsartan 160 mg-hydrochl orothiazide 12.5 mg tablet 2022 023 [facility] #[id number], [address], [place], [id number], 3 14:52:15 metformin 500 mg tablet 2022 023 [facility] #[id number], [address], [place], [id number], 3 14:52:18 Trulicity 1.5 mg/0.5 mL subcutaneou s pen injector 2022 023 [facility] #[id number], [address] [place], [place], [id number], 3 14:57:53 levothyroxi ne 88 mcg tablet 2022 023 [facility] #96094, [address] [place], [place], [id number], 3 14:52:20 Patient TargetsNo targets recorded. Patient InstructionsNo instructions recorded. Reason for Referral None Reported. Results Created Date Observation Date Name Description Value Unit Range Abnormal Flag Note LastModifiedBy Organization Detail LastModifiedTime 03/14/20 21 03/14/2021 urina lysis , dipst ick Leukocytes (reference range: negative raf/ l) Modera te Not Available [facility] [address] , [address], [place], [address], 03/14/2021 14:05:44 03/14/20 21 03/14/2021 urina lysis , dipst ick Nitrite (reference rage: negative mg/dl) negati ve Not Available [address] , [address], [place], [address], 03/14/2021 14:05:44 03/14/20 21 03/14/2021 urina lysis , dipst ick Urobilinogen (reference range: 0.2-1 mg/dl) 0.2 Not Available [address] , [address], [place], [address], 03/14/2021 14:05:44 03/14/20 21 03/14/2021 urina lysis , dipst ick Protein (reference range: negative mg/dl) Trace Not Available [address] , [address], [place], [address], 03/14/2021 14:05:44 03/14/20 21 03/14/2021 urina lysis , dipst ick pH (reference range: 5-7) 5.5 Not Available [address] , [address], [place], [address], 03/14/2021 14:05:44 03/14/20 21 03/14/2021 urina lysis , dipst ick Blood (reference range: negative Thom/ l) Small Not Available [address] , [address], [place], [address], 03/14/2021 14:05:44 03/14/20 21 03/14/2021 urina lysis , dipst ick Specific [place] (reference range: 1.005-1.030) 1.025 Not Available [address] , [address], [place], [address], 03/14/2021 14:05:44 03/14/20 21 03/14/2021 urina lysis , dipst ick Ketone (reference range: negative mg/dl) Negati ve Not Available [address] , [address], [place], [address], 03/14/2021 14:05:44 03/14/20 21 03/14/2021 urina lysis , dipst ick Bilirubin (reference range: negative mg/dl) Negati ve Not Available [address] , [address], [place], [address], 03/14/2021 14:05:44 03/14/20 21 03/14/2021 urina lysis , dipst ick Glucose (reference range: negative mg/dl) Negati ve Not Available [address] , [address], [place], [address], 03/14/2021 14:05:44 03/14/20 21 03/14/2021 urina lysis , dipst ick Appearance Slight ly Cloudy Not Available [address] , [address], [place], [address], 03/14/2021 14:05:44 03/14/20 21 03/14/2021 urina lysis , dipst ick Color Yellow Not Available [address] , [address], [place], [address], 03/14/2021 14:05:44 03/15/20 21 03/15/2021 CULTU RE URINE urc ===== ===== ===== ===== ===== ===== ===== ===== ===== ===== ===== ===== ===== ===== ===== ===== ===== ===== ===== ===== ===== ===== ===== ===== CULTU RE NO.: [id number] Exam Statu s: Final Exam Type: CULTU [...] furan toin <=16 S 021K Not Available [facility] (Lab) [address] [place], [address], 03/17/2021 08:46:54 09/09/19 22 09/08/2021 MICRO ALBUM IN RANDO M URINE microalb <6.0 mg/L 0.0-16 .6 RESUL T IS LESS THAN REPOR TABLE RANGE OF ASSAY . Not Available [facility] (Lab) [address] [place], [address], 09/08/2021 18:48:41 09/09/19 22 09/08/2021 FOLAT E, SERUM /PLAS MA folate 10.4 NG/mL 2.76- Not Available [facility] (Lab) [address] [place], [address], 09/08/2021 16:14:30 09/09/19 22 09/08/2021 VITAM IN B12 (JAIMIE CASEY ) vb12 >1000 pg/mL 239-93 1 high Not Available [facility] (Lab) [address] [place], [address], 09/08/2021 16:14:28 09/09/19 22 09/08/2021 HEMOG LOBIN A1C HA1C 7.4 % 4.0-6. 0 high Diabe robert Scree marcos Crite hayley: <5.7% Consi stent with absen ce of diabe robert 5.7-6 .4% Consi stent with incre ased risk for diabe robert (pred iabet es) >OR=6 .5% Consi stent with diabe robert REFER ENCE: Diabe robert Care 2016, 39(Cuadra ppl.1 ):s13 -s22 Not Available [facility] (Lab) [address] [place], [address], 09/08/2021 14:20:29 09/09/19 22 09/08/2021 BASIC METAB OLIC PANEL sodium 138 mmol/ L 137-14 5 Not Available [facility] (Lab) [address] [place], [address], 09/08/2021 13:29:31 09/09/19 22 09/08/2021 BASIC METAB OLIC PANEL potassium 4.6 mmol/ L 3.5-5. 1 Not Available [facility] (Lab) [address] [place], [address], 09/08/2021 13:29:31 09/09/19 22 09/08/2021 BASIC METAB OLIC PANEL chloride 101 mmol/ L 98-107 Not Available [facility] (Lab) [address] [place], [address], 09/08/2021 13:29:31 09/09/19 22 09/08/2021 BASIC METAB OLIC PANEL carbon dioxide 29 mmol/ L 22-30 Not Available [facility] (Lab) [address] [place], [address], 09/08/2021 13:29:31 09/09/19 22 09/08/2021 BASIC METAB OLIC PANEL agap 12.6 mmol/ L 14-22 low Not Available [facility] (Lab) [address] [place], [address], 09/08/2021 13:29:31 09/09/19 22 09/08/2021 BASIC METAB OLIC PANEL glucose 138 mg/dL 70-99 high Not Available [facility] (Lab) [address] [place], [address], 09/08/2021 13:29:31 09/09/19 22 09/08/2021 BASIC METAB OLIC PANEL BUN 15 mg/dL 8-19 Not Available [facility] (Lab) [address] [place], [address], 09/08/2021 13:29:31 09/09/19 22 09/08/2021 BASIC METAB OLIC PANEL creatinine 0.54 mg/dL 0.66-1 .25 low Not Available [facility] (Lab) [address] [place], [address], 09/08/2021 13:29:31 09/09/19 22 09/08/2021 BASIC METAB OLIC PANEL GFR >60 Refer ence Range : Flasher ge GFR Healt hy Adult : >60 [...] or ethni c subgr oups, such as Hisco nics. Outsi de the valid ated inna [...] s/kdo qi/gf r_cal culat or Not Available [facility] (Lab) [address] [place], [address], 09/08/2021 13:29:31 09/09/19 22 09/08/2021 BASIC METAB OLIC PANEL calcium 9.7 mg/dL 8.4-10 .2 Not Available [facility] (Lab) [address] [place], [address], 09/08/2021 13:29:31 09/09/19 22 09/08/2021 LIPID PANEL cholesterol 164 mg/dL 140-19 9 NIH RAÚL NSUS RECOM MENDA TION FOR MAYRA STERO L: ADULT CHILD LOW RISK: <200 <170 BORDE RLINE : <200- 239 ----- HIGH RISK: >240 >200 Not Available [facility] (Lab) [address] [place], [address], 09/08/2021 13:29:27 09/09/19 22 09/08/2021 LIPID PANEL triglyceride s 198 mg/dL 0-150 high NIH RAÚL NSUS REPOR T RECOM MENDA TION FOR TRIGL YCERI NORIS: ADULT CHILD LOW RISK: <150 ----- BODER LINE: 150-1 99 ----- HIGH RISK: >200 ----- Not Available [facility] (Lab) [address] [place], [address], 09/08/2021 13:29:27 09/09/19 22 09/08/2021 LIPID PANEL HDL cholesterol 39 mg/dL 40- low Not Available [facility] (Lab) [address] [place], [address], 09/08/2021 13:29:27 09/09/19 22 09/08/2021 LIPID PANEL [...] WILL NOT BE REPOR ROXANE. Not Available [facility] (Lab) [address] [place], [address], 09/08/2021 13:29:27 09/09/19 22 09/08/2021 HEPAT IC/LI GUTIERREZ PANEL alkaline phosphatase 93 U/L 38-126 Not Available [facility] (Lab) [address] [place], [address], 09/08/2021 13:29:25 09/09/19 22 09/08/2021 HEPAT IC/LI GUTIERREZ PANEL alanine aminotransfe rase 28 U/L 0-35 Not Available [facility] (Lab) [address] [place], [address], 09/08/2021 13:29:25 09/09/19 22 09/08/2021 HEPAT IC/LI GUTIERREZ PANEL aspartate aminotransfe rase 36 U/L 15-37 Not Available [facility] (Lab) [address] [place], [address], 09/08/2021 13:29:25 09/09/19 22 09/08/2021 HEPAT IC/LI GUTIERREZ PANEL bilirubin, total 0.70 mg/dL 0.20-1 .30 Not Available [facility] (Lab) [address] [place], [address], 09/08/2021 13:29:25 09/09/19 22 09/08/2021 HEPAT IC/LI GUTIERREZ PANEL bilirubin, conjugated (direct) 0.00 mg/dL 0.00-0 .30 Not Available [facility] (Lab) [address] [place], [address], 09/08/2021 13:29:25 09/09/19 22 09/08/2021 HEPAT IC/LI GUTIERREZ PANEL biliurubin,u ncong. (indirect) 0.50 mg/dL 0.00-1 .1 Not Available [facility] (Lab) [address] [place], [address], 09/08/2021 13:29:25 09/09/19 22 09/08/2021 HEPAT IC/LI GUTIERREZ PANEL total protein 7.0 g/dL 6.3-8. 2 Not Available [facility] (Lab) [address] [place], [address], 09/08/2021 13:29:25 09/09/19 22 09/08/2021 HEPAT IC/LI GUTIERREZ PANEL albumin 4.3 g/dL 3.4-5. 0 Not Available [facility] (Lab) [address] [place], [address], 09/08/2021 13:29:25 09/09/19 22 09/08/2021 HEPAT IC/LI GUTIERREZ PANEL globulin 2.7 g/dL 2.6-4. 2 Not Available [facility] (Lab) [address] [place], [address], 09/08/2021 13:29:25 09/09/19 22 09/08/2021 HEPAT IC/LI GUTIERREZ PANEL A/G ratio 1.6 ratio 1.0-2. 0 Not Available [facility] (Lab) [address] [place], [address], 09/08/2021 13:29:25 05/04/20 21 05/04/2021 elect destinee martel am No observ ation record ed. [id number] [facility] [address] , [address], [place], [address], 08/16/2022 22:28:41 05/05/20 21 XR, chest , 2 view [facility] [address] [place], [place] [address] Patimichael t Name: NIDHI GRIFFITH Access ion #: [id number] Sex: F : 1960 1 Locati [...] tely imaged here. Page 1 of 2 [facility] Name: NIDHI GRIFFITH Access ion #: [id number] Sex: F : 1960 1 Exam [...] 9:19 AM (CT) Page 2 of 2 MIGRATION.[id number] [facility] (Imaging) [address] [place], [address], 08/16/2022 22:28:41 05/05/20 21 05/05/2021 XR, chest , 2 view No observ ation record ed. [id number].[id number] [facility] [address] [place] [address], [place], [address], 08/16/2022 22:28:41 Result Notes None recorded. 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 Not Available [facility] 3 22:27:02 History of malignant neoplasm of breast 224453893 Active 2020 9 Not Available [facility] 3 22:27:02 History of lumbar fusion 9991965458248 6 Active 2020 Not Available [facility] 3 22:27:02 Diabetes mellitus 71141838 Active 2020 Not Available [facility] 3 22:27:02 Sleep apnea 94560271 Active 2020 Not Available [facility] 3 22:27:02 Hyperlipid emia 69620322 Active 2022 MARINO Avalos [address], [address], [place], [address] , [employer] 3 09:23:46 Cobalamin deficiency 729134382 Active 2022 MARINO Avalos [address], [address], [place], [address] , [facility] 3 09:25:50 Hypothyroi dism 66416107 Active 2022 MARINO Avalos [address], [address], [place], [address] , [employer] 3 14:47:26 Restless legs 05766893 Active 2022 MARINO Avalos [address], [address], [place], [address] , [employer] [facility] 3 14:50:00 Hypertensi ve disorder 13160819 Active 2022 MARINO Avalos [address] [facility], [facility] [address], [place], [address] , [place] [facility] 14:51:14 Problem Notes None recorded. Procedures Surgical History Date Name Laterality Status Provider Name and Address Organization Details Recorded Time Tonsillectomy completed Not Available [facility] 08/16/2022 22:26:18 other completed Not Available [facility] 06/2022 22:26:18 Back Surgeries completed Not Available [facility] 08/16/2022 22:26:18 Imaging Results Imaging Date Name Status LastModified by Organization Details LastModified Time 05/05/2021 XR, chest, 2 view completed MIGRATION. [id number] [facility] (Imaging) [address] [facility], [place], [address], 08/16/2022 22:28:41 05/04/2021 electrocardiogram completed MIGRATION. [id number] [facility] [address] , [facility] [address], [place], [address], 08/16/2022 22:28:41 05/05/2021 XR, chest, 2 view completed MIGRATION. [id number] , [place], [address], 08/16/2022 22:28:41 Procedure Notes None recorded. Medical Equipment None Reported. Allergies Allergen ID Allergen Name Allergen Category Reaction Reaction Severity Criticality Documentation Date Start Date Code Code System Note Provider Name and Address Organization Details Recorded Time 48525 tetracycl ine medicatio n Not available Not available Not available 08/16/2022 38792 RxNorm Not Available [facility] 22:28:36 17897 Substance with sulfonami de structure and antibacte rial mechanism of action (substanc e) medicatio n Not available Not available Not available 08/16/2022 19804 8003 SNOMED Not Available [facility] 22:28:36 92026 Bydureon medicatio n Not available Not available Not available 08/16/2022 72592 64 RxNorm Not Available [facility] 3 22:28:36 Medications Name Sig Start Date [...] % 98 % 82 /min 98 [degF] 59225.2 2 g 140 mm[Hg] 80 mm[Hg] Not Available [facility] 3 22:26:27 Date Recorded Body mass index (BMI) Body height Oxygen saturation Oxygen saturation in Arterial blood by Pulse oximetry Heart rate Body temperature Body weight Systolic blood pressure Diastolic blood pressure Provider Name and Address Organization Details Last Updated DateTime 2 34.5 kg/m2 142.24 cm 97 % 97 % 88 /min 96.3 [degF] 81818.2 2 g 122 mm[Hg] 80 mm[Hg] Not Available [facility] 3 22:26:27 Date Recorded Body mass index (BMI) Body height Oxygen saturation Oxygen saturation in Arterial blood by Pulse oximetry Heart rate Body temperature Body weight Systolic blood pressure Diastolic blood pressure Provider Name and Address Organization Details Last Updated DateTime 2 35.9 kg/m2 142.24 cm 98 % 98 % 90 /min 96 [degF] 18547.7 8 g 132 mm[Hg] 70 mm[Hg] Not Available [facility] 3 22:26:27 Date Recorded Body height Provider Name an d Address Organization Details Last Updated DateTime 03/14/2021 142.24 cm Not Available [facility] 3 22:26:27 Date Recorded Body height Body mass index (BMI) Body weight Body temperature Heart rate Oxygen saturation Oxygen saturation in Arterial blood by Pulse oximetry Systolic blood pressure Diastolic blood pressure Provider Name and Address Organization Details Last Updated DateTime 3 142.24 cm 33 kg/m2 91068.0 8 g 98.4 [degF] 82 /min 100 % 100 % 142 mm[Hg] 80 mm[Hg] Jorge John CMA [employer] 3 14:35:54 Social History Question Answer Notes LastModified by Organizat ion Details LastModified Time Tobacco Smoking Status Never Smoker Leilani ramirez [employer] 08/21/2022 14:23:55 What Is Your Level Of Alcohol Consumption? None 3-4 Times Yearly [id number] Information not available 08/16/2022 What Is Your Level Of Caffeine Consumption? Occasional [id number] Information not available 08/16/2022 How Much Tobacco Do You Chew? None [id number] Information not available 08/16/2022 In The 14 Days Before Symptom Onset, Have You Had Close Contact With A Laboratory-confir med COVID-19 While That Case Was Ill? No [email or web address] Information not available 08/21/2022 In The 14 Days Before Symptom Onset, Have You Had Close Contact With A Person Who Is Under Investigation For COVID-19 While That Person Was Ill? No Information not available 08/21/2022 What Type Of Diet Are You Following? REGULAR [id number] Information not available 08/16/2022 Which Illicit Or Recreational Drugs Have You Used? None Information not available 08/21/2022 Do You Or Have You Ever Used E-cigarettes Or Vape? Never Used Electronic Cigarettes [email or web address] Information not available 08/21/2022 Do You Or Have You Ever Used Smokeless Tobacco? Never Used Smokeless Tobacco [id number] Information not available 08/16/2022 How Much Tobacco Do You Smoke? No [id number] Information not available 08/16/2022 Do You Have Any Dietary Restrictions? No Information not available 08/21/2022 Sex: Unknown Functional Status Question Answer Note LastModified by Organizat ion Details LastModified Time What is your exercise level? Occasional [id number] Information not available 08/16/2022 Mental Status None recorded. Family History Relationship Description Onset Age of this Age Resolved Age Notes LastModified by Organization Details LastModified Time Mother Neuropathy [id number] Not available 08/16/2022 22:26:19 Mother Hypertensive disorder [id number] Not available 08/16/2022 22:26:19 Notes:cardiac issues - [...] 50 mcg/0.25mL dose 1 completed Not Available [facility] 08/16/2022 22:28:32 COVID-19, mRNA, LNP-S, PF, 100 mcg/0.5mL dose or 50 mcg/0.25mL dose 1 completed Not Available [facility] 08/16/2022 22:28:32 pneumococcal polysaccharide PPV23 1 completed Not Available [facility] 08/16/2022 22:28:32 Influenza, split virus, quadrivalent, preservative 0 completed Not Available [facility] 08/16/2022 22:28:32 Influenza, split virus, quadrivalent, PF 2 completed Not Available [facility] 08/16/2022 22:28:33 Past Encounters Encounter ID Performer Location Encounter Start Date Encounter Closed Date Diagnosis/Indication Diagnosis SNOMED-CT Code Diagnosis ICD10 Code Diagnosis Note [id number] S_[facility] [place] [address] , [place] [address] 12/21/2020 00:00:00 12/21/2020 13:01:12 [id number] [facility] [address] [place] [address] 03/14/2021 00:00:00 03/14/2021 14:21:07 [id number] S_G [facility] [place] [address] [place] [address] 05/04/2021 00:00:00 05/04/2021 15:32:47 [id number] [facility] [place] [address] [place] [address] 08/31/2021 00:00:00 08/31/2021 11:25:43 [id number] [facility] [place] [address] [facility] [address] [place] [address] 05/22/2022 00:00:00 05/22/2022 18:59:50 [id number] MARINO Avalos [facility] [place] [address] [facility] [address] [place] [address] 08/21/2022 14:23:32 08/21/2022 15:26:01 Diabetes mellitus 56470933 E11.9 (05/22/22) A1C 6.8Fasting AM sugars running around 130s.Belle nue with metformin 500mg TID and Trulicity 1.5mg weekly. Encouraged healthy eating/exe rcise. Hyperlipidemia 79114032 E78.5 Continue Atorvastat in 20mg daily. Adult heal th examination 246260725 Z00.00 Will get routine labs today. Covid vaccines- recommende d to keep up with boostersFl u vaccine- recommende d next fallTetanu s vaccine- recommende d; declined Pap- 01/2022 wnlColonos copy- due; will order in a few months, would like to hold for nowMammogr am- 03/2022 wnl Recommende d routine eye exams and dental cleanings. Cobalamin deficiency 190 065675 E53.8 Elevated on last labs, has not been on supplement for the last year. Hypothyroidism 70622786 E03.9 Recheck labs today. Restless legs 22757345 G 25.81 Stable. Continue pramipexol e. Hypertensive disorder 38 256371 I10 Continue to monitor. Health Concerns Section Related Observation LastModified by Organization Detai ls LastModified Time None Recorded Concern Status LastModified by Organization Details LastModified Time None Recorded Advance Directives Directive None Recorded Payers Encounter Date Sequence Insurance Name Policy Number Policy Gilliland Covered Member ID Gilliland Member ID Guarantor Name 08/21/2022 1 [employer] (INDEMNITY) [id number] Nidhi Martines [id number] OI Nidhi Martines Notes Date Note Type Note Provider Name and Address Organization Details Recorded Time 08/21/2022 text/html Pt. here for annual physical. No new concerns or complaints. MARINO Avalos [address] [facility], [facility] [address], [place], [address], [place] [employer] 08/21/2022 16:31:02 OBGyn Episode No OBEpisode recorded.
--- OUTSIDE RECORDS SUMMARY | 2024-09-16 09:15 | XMS_ITS ---
Author Organization [facility] neelam Address [address], [place] [address] Care Team Providers Care Blocklayer Name Role Phone Jaqui Lopez Unavailable Unav ailable Allergies No Known Allergies REASON FOR VISIT [facility] Medications Medication SIG (Take, [...] Active Encounters Encounter Location Date Provider Diagnosis [facility] [address] [place] [address] 04/08/2023 zzzzProvider zzzzMigration Plan Of Treatment No Information Progress Notes * Nidhi VASQUEZ MDOB:[birth year] (63 yo F)Acc No.[id number]:04/08/2023 Patient: Frannie Nidhi CULP :1960 A ge:62 Y S ex:Female Address:[address] [place] [address], [address] Subjective: * Chief Complaints: * E MR-Raphael * Medical History: * 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
--- OUTSIDE RECORDS SUMMARY | 2024-09-16 09:16 | XMS_ITS ---
Author Organization [facility] Address [address] [place] [address] Care Team Providers Care Pediatric Orthodontist Name Role Phone zzzzMigration, zzzzProvider Unavailable Unav ailable REASON FOR VISIT EMR-Raphael Encounters Encounter Location Date Provider Diagnosis [facility] [address] [facility] [address] [place] [address] 04/07/2023 zzzzProvider zzzzMigration Plan Of Treatment Medication [...] Oral for 30 11/14/2012 12/14/2012 *Reorder from [facility] for eRx and Interaction Alerts* Progress Notes * Nidhi VASQUEZ MDOB:[birth year] (63 yo F)Acc No.[id number]:04/07/2023 Patient: Juan SONice Julia :1960 A ge:62 Y S ex:Female Address:[address] [place] [address] * Refills Stop Diovan Tablet, 80 mg, [...] Generated for Natan rockwell/Clau/Reuben on: 0 09/16/2024 09:15 AM CDT
--- OUTSIDE RECORDS SUMMARY | 2024-09-16 09:16 | XMS_ITS | Encounter Summary ---
Author Organization [facility] Healthcare Address [address] [place] [address] Care Team Providers Care Broke Worker Name Role Phone Itzel Suarez NP Primary Care Provider Encounter Details Date Type Department Care Team (Late st Contact Info) Description 09/15/2024 Results Follow-Up [facility] Medical Group Cardiology [address] [address] Brooke Coleman NP [address] [facility] [address] [facility] [address] [place] [address] Social History Tobacco Use Types Packs/Day Years Used Date Smoking Tobacco: Never Smokeless Tobacco: Never Alcohol Use Standard Drinks/Week Comments No 0 (1 standard drink = 0.6 oz pur e alcohol) Comments Unknown Sex and Gender Information Value Date Recorded Sex Assigned at Not on file Legal 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
--- OUTSIDE RECORDS SUMMARY | 2024-09-16 09:16 | XMS_ITS | Encounter Summary ---
Author Organization [facility] Healthcare Address [address] [place] [address] Care Team Providers Care Addiction Therapist Name Role Phone Margauxdulce Itzel MATT Primary Care Provider [phone] Encounter Details Date Type Department Care Team (Late st Contact Info) Description 09/15/2024 Orders Only [facility] Medical Group Cardiology [address] [place] [address] Oc Kelly MD [address] [place] [id number] Social History Tobacco Use Types Packs/Day Years Used Date Smoking Tobacco: Never Smokeless Tobacco: Never Alcohol Use Standard Drinks/Week Comments No 0 (1 standard drink = 0.6 oz pur e alcohol) Comments Unknown Sex and Gender Information Value Date Recorded Sex Assigned at Not on file Legal Sex Female 1:39 AM 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 COOK Gender Identity Not on file Sexual Orientation Not on file documented as of this encounter Plan of Treatment Not on file documented as of this encounter Procedures Procedure Name Priority Date/Time Associated Diagnosis Comments TSH Routine 09/09/2024 12:12 PM CDT documented in this encounter Results * TSH (09/09/2024 12:12 PM CDT) Blood us Oc Kelly MD LAB BLOOD ORDERABLES Final Resul t documented in this encounter Visit Diagnoses Not on filedocumented in this encounter Care Teams Addiction Therapist Relationship Specialty Start Date End Date Itzel Suarez NP [address] [place] [address] [place] [address] PCP - General Nurse Practitioner 09/03/24 documented as of this encounter
[2024-09-16 10:05] LABS: Cholesterol 138 mg/dL (0-200); HDL Direct 37 mg/dL; Triglycerides 136 mg/dL (<150)
[2024-09-16 10:16] LABS: LDL Cholesterol Direct 70 mg/dL
== END 2024-09-16 08:54 | disposition home or self-care (01) ==
LOC: ANHLAB 08:54
PROVIDERS: PCP Nurse Practitioner Adult Health; Visit Provider Internal Medicine Cardiovascular Disease
DX: E78.2 Mixed hyperlipidemia (principal)
CPT/HCPCS: 36415; 80061

== ENCOUNTER 2024-10-13 10:30 | Outpatient (RCR) | payer OTHER, SELFPAY | END 2024-10-13 23:59 | disposition home or self-care (01) | LOC: ANHAUDIO 10:30 | PROVIDERS: PCP Nurse Practitioner Adult Health; Visit Provider Nurse Practitioner Adult Health | DX: Z46.1 Encounter for fitting and adjustment of hearing aid (principal) | CPT/HCPCS: 99199; V5261 ==

== ENCOUNTER 2025-01-27 09:18 | Outpatient (CLI) | payer OTHER, SELFPAY ==
--- OUTSIDE RECORDS SUMMARY | 2025-01-27 09:52 | XMS_ITS | Encounter Summary ---
Author Organization [facility] Address [address] [place] [address] Phone Care Team Providers Care Rn Corrections Name Role Phone No, Physician Primary Care Provider Itzel Suarez NP Primary Care Provider [phone] Encounter Details Date Type Department Care Team [...] on file Legal Sex Female 1:39 AM GM Gender Identity Female 01/22/2025 9:01 PM CDT Sexual Orientation Straight 01/22/2025 9: 01 PM CDT documented as of this encounter Plan of Treatment Not on file documented as of this encounter Procedures Procedure Name Priority Date/Time Associated Diagnosis Comments SLEEP LAB/STUDY - RESULT 05/08/2022 5:10 PM GM documented in this encounter Results * SLEEP LAB/STUDY - RESULT (05/08/2022 5:10 PM GM) us Provider Scanning Final Result documented in this encounter Visit Diagnoses Not on filedocumented in this encounter Care Teams Rn Corrections Relationship Specialty Start Date End Date No, Physician PCP - General 12/11/23 09/02/24 Itzel Suarez NP [facility] [place] [address] PCP - General Nurse Practitioner 09/03/24 documented as of this encounter
--- OUTSIDE RECORDS SUMMARY | 2025-01-27 09:53 | XMS_ITS | Clinical Summary ---
Author Organization [facility] C Address [address] [place] [address] Care Team Providers Care Fan Engine Engineer Name Role Phone Itzel Suarez NP Primary Care Provider [phone] Allergies Active Allergy Reactions Criticality Noted Date Comments Exenatide Microspheres Unknown 02/24/2019 Morphine Sulfa (Sulfonamide Antibiotics) Swelling Medium 2009 Sulfanilamide Other (See comments) Reaction: Unknown, Tetracycline Other (See comments),Rash Reaction: Unknown, , Reaction: RASH, Tetracyclines Rash Medium 2009 Medications vit C-vit N-svvtbu-oiuh-lutein (PRESERVISION LUTEIN) 226 mg-200 unit -5 mg-0.8 mg capsule 0 0 04/09/20 13 Active omeprazole (PriLOSEC) 10 mg capsule 10 mg. 0 03/15/20 12 Active atorvastatin (LIPITOR) 10 mg tablet take 1 tablet (10MG) by oral route every day 0 07/25/19 13 Active Additional Information Patient not taking.Reported on 09/18/2024 fenofibrate nanocrystallized (TRICOR) 48 mg tablet take 1 tablet (48MG) by oral route every day 0 07/25/19 13 Active Additional Information Patient not taking.Reported on 09/18/2024 cholecalciferol (VITAMIN D3) 4,000 unit capsule daily 0 0 10/19/19 16 Active vitamin E 400 unit capsule take 1 daily 0 0 10/19/19 16 Active dulaglutide (TRULICITY) 0.75 mg/0.5 mL pen injector weekly on Sunday 0 0 10/19/19 16 Active Additional Information Patient not taking.Reported on 09/18/2024 rOPINIRole (REQUIP) 0.25 mg tablet 2 tabs nightly 0 0 10/19/19 16 Active Additional Information Patient not taking.Reported on 09/18/2024 meloxicam (MOBIC) 15 mg tablet take 1 tablet by oral route every day 0 0 10/19/19 16 Active Additional Information Patient not taking.Reported on 09/18/2024 vitamin A 8,000 unit capsule take 1 [...] Active Additional Information Patient not taking.Reported on 09/18/2024 calcium-vitamin D3-vitamin K (CALCIUM FOR WOMEN) 500-100-40 mg-unit-mcg tablet,chewable 1 tab BID 0 0 10/19/19 16 Active Additional Information Patient not taking.Reported on 09/18/2024 magnesium oxide (MAG-OX) 250 mg (150.8 mg elemental) tabletIndications:hy pomagnesemia 1 tablet (250 mg total) daily Active cranberry 400 mg capsule Take by mouth Active valsartan-hydroCHLOR Othiazide (DIOVAN-HCT) 160-12.5 mg per tabletIndications:hy pertension Take 1 tablet by mouth daily Active pramipexole (MIRAPEX) 0.5 mg tabletIndications:RL S (restless legs syndrome) TAKE 1 TABLET AT BEDTIME 90 tablet 09/11/19 20 Active aspirin 81 mg enteric coated tablet Take 1 tablet (81 mg total) by mouth daily 30 tablet 11 09/04/19 25 026 Active rosuvastatin (CRESTOR) 40 mg tablet Take 1 tablet (40 mg total) by mouth daily 08/06/19 25 Active Mounjaro 10 mg/0.5 mL pen injector injection ADMINISTER 10 MG UNDER THE SKIN WEEKLY 08/11/19 25 Active amLODIPine (NORVASC) 10 mg tablet Take 1 tablet (10 mg total) by mouth daily 07/01/19 25 Active icosapent ethyL (VASCEPA) 1 gram capsule Take 2 capsules (2 g total) by mouth 2 (two) times a day Active empagliflozin (JARDIANCE) 10 mg tablet Take 1 tablet (10 mg total) by mouth daily 90 tablet 3 12/03/19 25 Active Active Problems Problem Noted Date Diagnosed [...] in the future if needed. Obesity (BMI 30.0-34.9) 03/02/2019 Assessment & Plan (03/02/2019 6:22 PM CDT): The only thing proven to slow the progression of osteoarthritis of the knee is weight loss. For every 1 lb lost, 4-6 lb of stress is relieved from the knee. Mild obstructive sleep apnea 07/23/2018 Lumbar radiculopathy 05/22/2016 Diabetes mellitus 02/10/2015 [...] Encounters Date Type Department Care Team Description 01/22/2025 11:30 AM CDT - 01/22/2025 11:59 PM CDT Hospital Encounter [place] [address] [place] [address] Dorsalgia; History of falling; Chest pain, unspecified type Discharge Disposition: Discharge to home or self care 12/02/2024 Telephone [facility] Medical Group Cardiology [address] [place] [address] Oc Kelly MD from Last 3 Months Immunizations Immunization Administration [...] on file Legal Sex Female 1:39 AM REGIONAL E[employer]OMIC LIAISON Gender Identity Female 01/22/2025 9:01 PM CDT Sexual Orientation Straight 01/22/2025 9: 01 PM CDT Obstetrics History Last Filed Vital Signs Vital Sign Reading Time Taken Comments Blood Pressure 103/64 10/14/2024 7:19 PM CDT Pulse 82 10/14/2024 7:19 PM CDT Temperature 36.2 C (97.2 F) 10/14/2024 7:19 PM CDT Respiratory Rate - - Oxygen Saturation 98% 10/14/2024 7:19 PM CDT Inhaled Oxygen Concentration - - Weight 62.6 kg (138 lb) 10/14/2024 7:19 PM CDT Height 142.2 cm (4' 8) 10/14/2024 7:19 PM CDT Body Mass Index 30.94 10/14/2024 7:19 PM CDT Plan of Treatment Health Maintenance Due [...] 02/03/2022 02/03/2021, 04/15/2014, 04/09/2013 Covid-19 Vaccine (7 - 4-2 5 season) 2024 10/25/2021, 03/25/2021, 09/15/2020, Additional history exists Influenza Vaccine (#1) 2025 , 03/29/2021, 03/31/2020, Additional history exists Lipid Panel 09/16/2025 09/16/2024, 09/03/2024 Procedures Procedure Name Priority Date/Time Associated Diagnosis Comments XR RIBS RIGHT 2 VIEWS Schedule Routine, Read Routine (OP Routine) 01/22/2025 11:57 AM CDT Chest pain, unspecified type History of falling XR SPINE LUMBAR 2 OR 3 VIEWS Schedule Routine, Read Routine (OP Routine) 01/22/2025 11:57 AM CDT Dorsalgia History of falling LIPID PANEL Routine 09/16/2024 Mixed dyslipidemia DIAGNOSTIC MAMMOGRAM BILATERAL W ELKIN Routine 04/15/2014 12:00 AM CDT from Last 3 Months or Most Recently Relevant to Health Maintenance Results * XR Spine Lumbar 2 or 3 Views (01/22/2025 11:57 AM CDT) Anatomical Region Laterality Modality Spine N/A Computed Radiogr aphy 01/24/2025 3:20 PM CDT Narrative 01/24/2025 3:25 PM CDT EXAM DESCRIPTION: 1. XR SPINE LUMBAR 2 OR 3 VIEWS; 2. XR RIBS RIGHT 2 VIEWS REASON FOR STUDY: Dorsalgia Right rib tenderness , low back pain FINDINGS: Three views lumbar spine and two views right ribs submitted with comparison 05/22/2016. Lumbar spine: L2-S1 instrumented posterior spinal fusion with L4-S1 combined anterior fusion. Left vertical mc fracture at the level of L4-L5 and right vertical mc fracture at the level of L5-S1. Lumbar posterior decompression has been performed. No acute fracture. Diffuse idiopathic skeletal hyperostosis is present. Arterial atherosclerosis is present. Bilateral hip osteoarthritis. Right ribs: Possible nondisplaced fractures of the anterolateral right 9th and 10th ribs. No evidence of pulmonary contusion or pneumothorax. IMPRESSION: 1. L2-S1 instrumented posterior spinal fusion with L4-S1 combined anterior fusion. Left vertical mc fracture at the level of L4-L5 and right vertical mc fracture at the level of L5-S1. 2. Possible nondisplaced fractures of the anterolateral right 9th and 10th ribs. THIS IS AN ELECTRONICALLY VERIFIED FINAL REPORT 01/24/2025 3:25 PM - Electronically signed by Brennen MATTHEWS T: Report ID: [id number] Reading Location: [place] [address] Procedure Note Brennen Esquivel MD - 01/24/2025 EXAM DESCRIPTION: 1. XR SPINE LUMBAR 2 OR 3 VIEWS; 2. XR RIBS RIGHT 2 VIEWS REASON FOR STUDY: Dorsalgia Right rib tenderness , low back pain FINDINGS: Three views lumbar spine and two views right ribs submitted with comparison 05/22/2016. Lumbar spine: L2-S1 instrumented posterior spinal fusion with L4-S1 combined anterior fusion. Left vertical mc fracture at the level of L4-L5 and rightvertical mc fracture at the level of L5-S1. Lumbar posterior decompression hasbeen performed. No acute fracture. Diffuse idiopathic skeletal hyperostosisis present. Arterial atherosclerosis is present. Bilateral hiposteoarthritis. Right ribs: Possible nondisplaced fractures of the anterolateral right 9th and 10thribs. No evidence of pulmonary contusion or pneumothorax. IMPRESSION: 1. L2-S1 instrumented posterior spinal fusion with L4-S1 combinedanterior fusion. Left vertical mc fracture at the level of L4-L5 and rightvertical mc fracture at the level of L5-S1. 2. Possible nondisplaced fractures of the anterolateral right 9th [id number] ribs. THIS IS AN ELECTRONICALLY VERIFIED FINAL REPORT 01/24/2025 3:25 PM - Electronically signed by Brennen Medina: 01/24/2025 3:25 PM T: Report ID: [id number] Reading Location: [id number] Maria T Alvarez MD IMG XR PROCEDURES Final Result * XR Ribs Right 2 Views (01/22/2025 11:57 AM CDT) Anatomical Region Laterality Modality Rib, Chest Right Computed Radiogr aphy 01/24/2025 3:20 PM CDT Narrative 01/24/2025 3:25 PM CDT EXAM DESCRIPTION: 1. XR SPINE LUMBAR 2 OR 3 VIEWS; 2. XR RIBS RIGHT 2 VIEWS REASON FOR STUDY: Dorsalgia Right rib tenderness , low back pain FINDINGS: Three views lumbar spine and two views right ribs submitted with comparison 05/22/2016. Lumbar spine: L2-S1 instrumented posterior spinal fusion with L4-S1 combined anterior fusion. Left vertical mc fracture at the level of L4-L5 and right vertical mc fracture at the level of L5-S1. Lumbar posterior decompression has been performed. No acute fracture. Diffuse idiopathic skeletal hyperostosis is present. Arterial atherosclerosis is present. Bilateral hip osteoarthritis. Right ribs: Possible nondisplaced fractures of the anterolateral right 9th and 10th ribs. No evidence of pulmonary contusion or pneumothorax. IMPRESSION: 1. L2-S1 instrumented posterior spinal fusion with L4-S1 combined anterior fusion. Left vertical mc fracture at the level of L4-L5 and right vertical mc fracture at the level of L5-S1. 2. Possible nondisplaced fractures of the anterolateral right 9th and 10th ribs. THIS IS AN ELECTRONICALLY VERIFIED FINAL REPORT 01/24/2025 3:25 PM - Electronically signed by Brennen Esquivel M.D. T: Report ID: [id number] Reading Location: [id number] Procedure Note Brennen Esquivel MD - 01/24/2025 EXAM DESCRIPTION: 1. XR SPINE LUMBAR 2 OR 3 VIEWS; 2. XR RIBS RIGHT 2 VIEWS REASON FOR STUDY: Dorsalgia Right rib tenderness , low back pain FINDINGS: Three views lumbar spine and two views right ribs submitted with comparison 05/22/2016. Lumbar spine: L2-S1 instrumented posterior spinal fusion with L4-S1 combined anterior fusion. Left vertical mc fracture at the level of L4-L5 and rightvertical mc fracture at the level of L5-S1. Lumbar posterior decompression hasbeen performed. No acute fracture. Diffuse idiopathic skeletal hyperostosisis present. Arterial atherosclerosis is present. Bilateral hiposteoarthritis. Right ribs: Possible nondisplaced fractures of the anterolateral right 9th and 10thribs. No evidence of pulmonary contusion or pneumothorax. IMPRESSION: 1. L2-S1 instrumented posterior spinal fusion with L4-S1 combinedanterior fusion. Left vertical mc fracture at the level of L4-L5 and rightvertical mc fracture at the level of L5-S1. 2. Possible nondisplaced fractures of the anterolateral right 9th [id number] ribs. THIS IS AN ELECTRONICALLY VERIFIED FINAL REPORT 01/24/2025 3:25 PM - Electronically signed by Brennen Esquivel M.D. T: Report ID: [id number] Reading Location: [place] [address] Maria T Alvarez MD IMG XR PROCEDURES Final Result * Lipid panel (09/16/2024) SCRIBED Cholesterol, Total 136 <200 EXTERNAL LAB SCRIBED HDL 37 >40 EXTERNAL LAB SCRIBED LDL 70 <100 EXTERNAL LAB SCRIBED Triglycerides 136 <150 EXTERNAL LAB Blood 09/16/2024 Oc Kelly MD LAB BLOOD ORDERABLES Final Resul t EXTERNAL LAB * Diagnostic Mammogram Bilateral W Elkin (04/15/2014 [...] Requesting: RUBEN BAH M.D. Requesting Requesting ID: [id number] Attending Attending ID: [id number] Completed Time: 04/15/2014 4:26 PM Dictated Time: [...] Requesting: RUBEN BAH M.D. Requesting Requesting ID: [id number] Attending Attending ID: [id number] Completed Time: 04/15/2014 4:26 PM Dictated Time: [...] Most Recently Relevant to [place] [address] [facility] [id number] [place] [address] [facility] [id number] Care Teams Fan Engine Engineer Relationship Specialty Start Date End Date Itzel Suarez NP [facility] [place] [address] PCP - General Nurse Practitioner 09/03/24
--- OUTSIDE RECORDS SUMMARY | 2025-01-27 09:53 | XMS_ITS | Patient Health Record ---
Author Organization [facility] Address [address] [facility] [address] [address] [place] [address] Support Name Relationship Address Phone Nidhi Martines Guarantor Unknown Allergies No Known Allergies Reason For Referral No Information Medications Medication SIG (Take, Route, Frequency, Duration) Notes Start Date End Date Status metFORMIN HCl ER 500 MG TAKE 2 TABLETS BY MOUTH DAILY WITH EVENING MEALS Oral 11/10/2013 Active Sinemet 500 /200 mg Once daily in evening Oral *Pick strength-form from [employer] for eRX* Active Tamoxifen Citrate 20 MG take 1 tablet (20 mg) by oral route once daily Oral 1 Active Vitamin D 4000 IU DAILY *Pick strength-form from [employer] for eRX* Active Problems Problem Type SNOMED Code ICD Code Onset Dates Problem Status W/U Status Risk Notes Problem Renal disorder due to type 2 diabetes mellitus (941691752) Diabetes with other specified manifestations, type II or unspecified type, not stated as uncontrolled (250.80) 012 Active confirmed Associated with Metabolic Syndrome. Problem Mixed hyperlipidemia (945092022) Mixed hyperlipidemia (272.2) 012 Active confirmed Problem Lumbar post-laminectomy syndrome (838530766) Postlaminectomy syndrome, lumbar region (722.83) Active confirmed Has had 3 back surgeries since 1998 , ( with post op Staph Infection ) and 05/[address] Barr at [facility] . Multi levels lumbar fusion. 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 Problem Hyperlipidemia (85993756) Hyperlipidemia, unspecified (E78.5) 005 Active confirmed Problem Essential hypertension (03576564) Essential (primary) hypertension (I10) 005 Active confirmed Plan Of Treatment No Information Insurance Providers Payer Name Payer Address Payer Phone Subscriber Number Group Number Insured Name Patient Relationship to Insured Coverage Start Date Coverage End Date DO NOT USE [id number] Nidhi Martines Self - patient is the insured 2010 Medical (General) History Surgical History Surgery Date(Month/Year) Back surgery: 3 surgeries to date , Fusion of L4-5 , surgery in 2005 was complicated by post op infection., Date of Procedure: 1998,,; 2011-07-25 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
[2025-01-27 10:11] LABS: Alanine Aminotransferase 17 U/L (6-35); Albumin Level 4.3 g/dL (3.5-5.1); Alkaline Phosphatase 64 U/L (38-126); Anion Gap 9 mmol/L (4-12); Aspartate Amino Transferase 28 U/L (14-36); Bilirubin,Total 0.6 mg/dL (0.2-1.3); Blood Urea Nitrogen 18 mg/dL (7-17); Calcium 9.8 mg/dL (8.4-10.2); Carbon Dioxide 29 mmol/L (22-30); Chloride 100 mmol/L (98-107); Cholesterol 125 mg/dL (0-200); Estimated Glomerular Filt Rate 56; Glucose 117 mg/dL (65-110); HDL Direct 33 mg/dL; Potassium 3.5 mmol/L (3.4-5.0); Sodium 138 mmol/L (137-145); Total Protein 7.2 g/dL (6.3-8.2); Triglycerides 194 mg/dL (<150)
[2025-01-27 10:16] LABS: MALB Creatinine Ratio 237.5 mg/g (0-30)
[2025-01-27 10:29] LABS: Free T4 Free Thyroxine 1.38 ng/dL (0.78-2.19)
[2025-01-27 10:51] LABS: Thyroid Stimulating Hormone 0.433 uIU/mL (0.465-4.680)
[2025-01-27 11:10] LABS: Vitamin B12 210.0 pg/mL (239-931)
== END 2025-01-27 09:19 | disposition home or self-care (01) ==
LOC: ANHLAB 09:19
PROVIDERS: PCP Nurse Practitioner Adult Health; Visit Provider Internal Medicine Endocrinology, Diabetes & Metabolism
DX: E03.9 Hypothyroidism, unspecified (principal); E11.9 Type 2 diabetes mellitus without complications; E78.00 Pure hypercholesterolemia, unspecified; R79.89 Other specified abnormal findings of blood chemistry; E53.8 Deficiency of other specified B group vitamins
CPT/HCPCS: 36415; 80053; 80061; 82043; 82306; 82607; 84439; 84443

== ENCOUNTER 2025-03-25 10:54 | Outpatient (CLI) | payer OTHER, SELFPAY ==
[2025-03-25 11:46] LABS: Anion Gap 9 mmol/L (4-12); Blood Urea Nitrogen 20 mg/dL (7-17); Calcium 9.9 mg/dL (8.4-10.2); Carbon Dioxide 28 mmol/L (22-30); Chloride 96 mmol/L (98-107); Estimated Glomerular Filt Rate 45; Glucose 113 mg/dL (65-110); Potassium 3.2 mmol/L (3.4-5.0); Sodium 133 mmol/L (137-145)
[2025-03-25 11:58] LABS: Free T4 Free Thyroxine 1.87 ng/dL (0.78-2.19)
[2025-03-25 12:11] LABS: MALB Creatinine Ratio 334.2 mg/g (0-30)
[2025-03-25 12:35] LABS: Thyroid Stimulating Hormone 0.707 uIU/mL (0.465-4.680)
== END 2025-03-25 10:55 | disposition home or self-care (01) ==
LOC: ANHLAB 10:57
PROVIDERS: PCP Nurse Practitioner Adult Health; Visit Provider Internal Medicine Endocrinology, Diabetes & Metabolism
DX: E03.9 Hypothyroidism, unspecified (principal); E11.29 Type 2 diabetes mellitus with other diabetic kidney complication; R80.9 Proteinuria, unspecified
CPT/HCPCS: 36415; 80048; 82043; 84439; 84443

== ENCOUNTER 2025-04-28 12:31 | Outpatient (CLI) | payer OTHER, SELFPAY ==
--- OUTSIDE RECORDS SUMMARY | 2024-10-14 04:15 | XMS_ITS ---
Author Organization [facility] Address [address] [place] [address] Care Team Providers Care Melting Furnace Skimmer Name Role Phone Itzel Suarez Primary Care Provider Romana Cruz [phone] FATOUMATA DE JESUS, LISSETTE Unavailable Unavailable REASON FOR VISIT R SI Encounters Encounter Location Date Provider Diagnosis [facility]-[address] [address] 10/14/2024 Romana Adhikari Plan Of Treatment No Information Progress Notes * Nidhi VASQUEZDOB: [birth year] (64 yo F)Acc No.[id number]:10/14/2024 Injection Patient: Nidhi SON Provider: Denilson Adhikari MD :1960 A ge:63 Y S ex:Female Date:10/14/2024 Address:[address] [place] [address] [address] [place], [place] Pcp:Itzel Suarez Subjective: * Chief Complaints: * Medical History: Objective: Assessment: Plan: * Treatment: * * Electronic signature of Romana Adhikari MD on 04/28/2025 at 12:36 PM FERTILIZER LOADER Sign off status: Pending * Provider: Denilson Adhikari MD Date: 0 10/14/2024 Generated for Billiei ng/Fajimenag/eTransmitting on: 1 06/28/2024 12:36 PM FERTILIZER LOADER
--- OUTSIDE RECORDS SUMMARY | 2024-12-16 07:00 | XMS_ITS ---
Author Organization [facility] Address [address] [place] [address] Care Team Providers Care Consulting Hr Professional Name Role Phone Itzel Suarez Primary Care Provider UnavailRomana Camacho Unavailable [phone] FATOUMATA DE JESUS, LISSETTE [facility] Unavailable Adrián Gilliland [phone] REASON FOR VISIT 2 Wks Encounters Encounter Location Date Provider Diagnosis [facility]-[address] [address] 12/16/2024 Adrián Gilliland Plan Of Treatment No Information Progress Notes * CHRISTINA JuannamrataDOB: [birth year] (64 yo F)Acc No.[id number]:12/16/2024 Post Procedure Follow Up Patient: Nidhi SON Provider: MARINO Wilcox :1960 A ge:64 Y S ex:Female Date:12/16/2024 Address:[address] [place] [address] [place] Pcp:Itzel Suarez Subjective: * Chief Complaints: * 1 . 2 Wks. * Medical History: Objective: * Vitals: Assessment: Plan: * Treatment: * * Electronic signature of MARINO Romero on 04/28/2025 at 12:36 PM RECREATION TECHNICIAN Sign off status: Pending * Provider: MARINO Wilcox Date: 0 12/16/2024 Generated for Printi ng/Faxing/eTransmitting on: 1 06/28/2024 12:36 PM RECREATION TECHNICIAN
--- OUTSIDE RECORDS SUMMARY | 2025-04-28 12:36 | XMS_ITS | Clinical Summary ---
Author Organization [facility] C Address [address] [place] [address] Care Team Providers Care Medical Lab Technician Name Role Phone Itzel Suarez NP Primary Care Provider [phone] Allergies Active Allergy Reactions Criticality Noted Date Comments Exenatide Microspheres Unknown 02/24/2019 Morphine Sulfa (Sulfonamide Antibiotics) Swelling Medium 2009 Sulfanilamide Other (See comments) Reaction: Unknown, Tetracycline Other (See comments),Rash Reaction: Unknown, , Reaction: RASH, Tetracyclines Rash Medium 2009 Medications vit C-vit Y-dbumym-jfqv-l utein (PRESERVISION LUTEIN) 226 mg-200 unit -5 mg-0.8 mg capsule 0 0 3 Active omeprazole (PriLOSEC) 10 mg capsule 10 mg. 0 2 Active Additional Information Patient not taking.Reported on 03/04/2025 cholecalciferol (VITAMIN D3) 4,000 unit capsule daily 0 0 6 Active vitamin E 400 unit capsule take 1 daily 0 0 6 Active rOPINIRole (REQUIP) 0.25 mg tablet 2 tabs nightly 0 0 6 Active Additional Information Patient not taking.Reported on 03/04/2025 meloxicam (MOBIC) 15 mg tablet take 1 tablet by oral route every day 0 0 6 Active Additional Information Patient not taking.Reported on 03/04/2025 vitamin A 8,000 unit capsule take 1 capsule by oral route every day 0 0 6 Active metFORMIN (GLUMETZA) 500 mg 24 hr tablet 2 tabs nightly with a meal 0 0 6 Active omega-3 fatty acids (FISH OIL CONCENTRATE) 1,000 mg capsule 1 capsule BID 0 0 6 Active Additional Information Patient not taking.Reported on 03/04/2025 calcium-vitamin D3-vitamin K (CALCIUM FOR WOMEN) 500-100-40 mg-unit-mcg tablet,chewable 1 tab BID 0 0 6 Active magnesium oxide (MAG-OX) 250 mg (150.8 mg elemental) tabletIndicatio ns:hypomagnesem ia 1 tablet (250 mg total) daily Active cranberry 400 mg capsule Take by mouth Activ e valsartan-hydro CHLOROthiazide (DIOVAN-HCT) 160-12.5 mg per tabletIndicatio ns:hypertension Take 1 tablet by mouth daily Active pramipexole (MIRAPEX) 0.5 mg tabletIndicatio ns:RLS (restless legs syndrome) TAKE 1 TABLET AT BEDTIME 90 tablet 0 Active aspirin 81 mg enteric coated tablet Take 1 tablet (81 mg total) by mouth daily 30 tablet 11 5 09/04/19 26 Active rosuvastatin (CRESTOR) 40 mg tablet Take 1 tablet (40 mg total) by mouth daily 5 Active Mounjaro 10 mg/0.5 mL pen injector injection ADMINISTER 10 MG UNDER THE SKIN WEEKLY 5 Active amLODIPine (NORVASC) 5 mg tablet Take 1 tablet (5 mg total) by mouth daily 5 Active icosapent ethyL (VASCEPA) 1 gram capsule Take 2 capsules (2 g total) by mouth 2 (two) times a day Active empagliflozin (JARDIANCE) 10 mg tablet Take 1 tablet (10 mg total) by mouth daily 90 tablet 3 5 Active Additional Information Patient not taking.Reported on 03/04/2025 levothyroxine (SYNTHROID) 88 mcg tablet Take 1 tablet (88 mcg total) 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 Gender Identity Female 01/22/2025 9:01 PM CDT Sexual Orientation Straight 01/22/2025 9: 01 PM CDT Last Filed Vital Signs Vital Sign Reading Time Taken Comments Blood Pressure 106/64 03/04/2025 9:27 AM CDT Pulse 83 03/04/2025 9:27 AM CDT Temperature 36.2 C (97.2 F) 10/14/2024 7:19 PM CDT Respiratory Rate - - Oxygen Saturation 98% 03/04/2025 9:27 AM CDT Inhaled Oxygen Concentration - - Weight 59.6 kg (131 lb 6.4 oz) 03/04/2025 9:27 A M CDT Height 149.9 cm (4' 11) 03/04/2025 9:27 AM CDT Body Mass Index 26.54 03/04/2025 9:27 AM CDT Plan of Treatment Health Maintenance Due Date Last Done Comments Albumin Creatinine Ratio, Urine 1962 Cervical Cancer Screening 1962 Colon Cancer Screening-Colonoscopy 1962 Depression Screening 1962 Hemoglobin A1C 1962 Hepatitis C Screening 1962 eGFR 1962 Dilated Eye Exam 1962 Foot Exam 1962 DTaP/Tdap/Td Vaccine (1 - Tdap) 1973 Hepatitis B Screening 1980 Regular Well Visit/Exam 18-64 1980 Pneumococcal vaccine <65 (2 of 2 - PCV) 06/22/2021 06/22/2020 Breast Cancer Screening-Mammogram 02/03/2022 02/03/2021, 04/15/2014, 04/09/2013 Zoster Vaccine (2 of 2) 04/14/2023 02/17/2023 Covid-19 Vaccine (7 - 2024-2 6 season) 2025 10/25/2021, 03/25/2021, 09/15/2020, Additional history exists Influenza Vaccine (#1) 2025 2, 03/29/2021, 03/31/2020, Additional history exists Lipid Panel 09/16/2025 09/16/2024, 09/03/2024 Procedures Procedure Name Priority Date/Time Associated Diagnosis Comments LIPID PANEL Routine 09/16/2024 Mixed dyslipidemia DIAGNOSTIC MAMMOGRAM BILATERAL W ELKIN Routine 04/15/2014 12:00 AM CDT from Last 3 Months or Most Recently Relevant to Health Maintenance Results * Lipid panel (09/16/2024) SCRIBED Cholesterol, Total 136 <200 EXTERNAL LAB SCRIBED HDL 37 >40 EXTERNAL LAB SCRIBED LDL 70 <100 EXTERNAL LAB SCRIBED Triglycerides 136 <150 EXTERNAL LAB Blood 09/16/2024 us Oc Kelly MD LAB BLOOD ORDERABLES [...] Requesting: RUBEN BAH M.D. Requesting Requesting ID: [id number] Attending Attending ID: [id number] Completed Time: 04/15/2014 4:26 PM Dictated Time: [...] Requesting: RUBEN BAH M.D. Requesting Requesting ID: [id number] Attending Attending ID: [id number] Completed Time: 04/15/2014 4:26 PM Dictated Time: [...] FAX: NextGen Order #: us Historical Provider IMRahul MAMMO PROCEDURES Reyna l Result from Last 3 Months or Most Recently Relevant to Health Maintenance Insurance [facility] CHO[facility] [id number] [place] [address] [facility] [id number] Care Teams Medical Lab Technician Relationship Specialty Start Date End Date Itzel Suarez NP [address] [place] [address] [place] [address] PCP - General Nurse Practitioner 09/03/24
--- OUTSIDE RECORDS SUMMARY | 2025-04-28 12:36 | XMS_ITS | Data Portability ---
Author Organization [place] [facility], Main Office Address [address] [place] [address] Assessment No assessment recorded. Plan of Treatment Reminders Order Date Submit Date Provider Last Modified By Organization Details Last Modified Time Details Appointments None recorded. Lab CMP, serum or plasma 2022 023 [facility] (Lab), [address] [place], [address], 3 05:34:07 HbA1c (hemoglobin A1c), blood [address] (Lab), [address] [place], [address], 3 07:58:55 TSH, serum, reflex free T4 2022 023 [facility] (Lab), [address] [place], [address], 3 05:34:08 lipid panel, serum 2022 023 [facility] (Lab), [address] [place], [address], 3 05:34:07 vitamin B12 + folate, serum or blood 2022 023 [facility] (Lab), [address] [place], [address], 3 05:34:08 Referral None recorded. Procedures None recorded. Surgeries None recorded. Imaging None recorded. Medication Orders pramipexole 0.25 mg tablet 2022 023 [facility][id number], [address] [place] [address], [place], [id number], 3 14:52:19 valsartan 160 mg-hydrochl orothiazide 12.5 mg tablet 2022 023 [facility] #[id number], [address] [place] [address], [place], [id number], 3 14:52:15 metformin 500 mg tablet 2022 023 [facility] #53097, [address] [place], [place], [id number], 3 14:52:18 Trulicity 1.5 mg/0.5 mL subcutaneou s pen injector 2022 023 [facility] #87101, [address] [place], [place], [id number], 3 14:57:53 levothyroxi ne 88 mcg tablet 2022 023 [facility] #[id number], [address] [place] [address], [place], [id number], 3 14:52:20 Patient TargetsNo targets recorded. Patient InstructionsNo instructions recorded. Reason for Referral None Reported. Results Created Date Observation Date Name Description Value Unit Range Abnormal Flag Note LastModifiedBy Organization Detail LastModifiedTime 03/14/20 21 03/14/2021 urina lysis , dipst ick Leukocytes (reference range: negative raf/ l) Modera te Not Available [facility] [address] , [address], [place], [address], 03/14/2021 14:05:44 03/14/20 21 03/14/2021 urina lysis , dipst ick Nitrite (reference rage: negative mg/dl) negati ve Not Available [address] , [address], [place], [address], 03/14/2021 14:05:44 03/14/20 21 03/14/2021 urina lysis , dipst ick Urobilinogen (reference range: 0.2-1 mg/dl) 0.2 Not Available [address] , [address], [place], [address], 03/14/2021 14:05:44 03/14/20 21 03/14/2021 urina lysis , dipst ick Protein (reference range: negative mg/dl) Trace Not Available [address] , [address], [place], [address], 03/14/2021 14:05:44 03/14/20 21 03/14/2021 urina lysis , dipst ick pH (reference range: 5-7) 5.5 Not Available [address] , [address], [place], [address], 03/14/2021 14:05:44 03/14/20 21 03/14/2021 urina lysis , dipst ick Blood (reference range: negative Thom/ l) Small Not Available [address] , [address], [place], [address], 03/14/2021 14:05:44 03/14/20 21 03/14/2021 urina lysis , dipst ick Specific [place] (reference range: 1.005-1.030) 1.025 Not Available [facility] [address] , [address], [place], [address], 03/14/2021 14:05:44 03/14/20 21 03/14/2021 urina lysis , dipst ick Ketone (reference range: negative mg/dl) Negati ve Not Available [address] , [address], [place], [address], 03/14/2021 14:05:44 03/14/20 21 03/14/2021 urina lysis , dipst ick Bilirubin (reference range: negative mg/dl) Negati ve Not Available [address] , [address], [place], [address], 03/14/2021 14:05:44 03/14/20 21 03/14/2021 urina lysis , dipst ick Glucose (reference range: negative mg/dl) Negati ve Not Available [address] , [address], [place], [address], 03/14/2021 14:05:44 03/14/20 21 03/14/2021 urina lysis , dipst ick Appearance Slight ly Cloudy Not Available [address] , [address], [place], [address], 03/14/2021 14:05:44 03/14/20 21 03/14/2021 urina lysis , dipst ick Color Yellow Not Available [address] , [address], [place], [address], 03/14/2021 14:05:44 03/15/2003/15/2021 CULTU RE URINE urc ===== ===== ===== ===== ===== ===== ===== ===== ===== ===== ===== ===== ===== ===== ===== ===== ===== ===== ===== ===== ===== ===== ===== ===== CULTU RE NO.: [id number] Exam Statu s: Final Exam Type: CULTU [...] furan toin <=16 S 021K Not Available [facility] (Lab) [address] [place], [address], 03/17/2021 08:46:54 09/09/19 22 09/08/2021 MICRO ALBUM IN RANDO M URINE microalb <6.0 mg/L 0.0-16 .6 RESUL T IS LESS THAN REPOR TABLE RANGE OF ASSAY . Not Available [facility] (Lab) [address] [place], [address], 09/08/2021 18:48:41 09/09/19 22 09/08/2021 FOLAT E, SERUM /PLAS MA folate 10.4 NG/mL 2.76- Not Available [facility] (Lab) [address] [place], [address], 09/08/2021 16:14:30 09/09/19 22 09/08/2021 VITAM IN B12 (JAIMIE CASEY ) vb12 >1000 pg/mL 239-93 1 high Not Available [facility] (Lab) [address] [place], [address], 09/08/2021 16:14:28 09/09/19 22 09/08/2021 HEMOG LOBIN A1C HA1C 7.4 % 4.0-6. 0 high Diabe robert Scree marcos Crite hayley: <5.7% Consi stent with absen ce of diabe robert 5.7-6 .4% Consi stent with incre ased risk for diabe robert (pred iabet es) >OR=6 .5% Consi stent with diabe robert REFER ENCE: Diabe robert Care 2015, 39(Cuadra ppl.1 ):s13 -s22 Not Available [facility] (Lab) [address] [place], [address], 09/08/2021 14:20:29 09/09/19 22 09/08/2021 BASIC METAB OLIC PANEL sodium 138 mmol/ L 137-14 5 Not Available [facility] (Lab) [address] [place], [address], 09/08/2021 13:29:31 09/09/19 22 09/08/2021 BASIC METAB OLIC PANEL potassium 4.6 mmol/ L 3.5-5. 1 Not Available [facility] (Lab) [address] [place], [address], 09/08/2021 13:29:31 09/09/19 22 09/08/2021 BASIC METAB OLIC PANEL chloride 101 mmol/ L 98-107 Not Available [facility] (Lab) [address] [place], [address], 09/08/2021 13:29:31 09/09/19 22 09/08/2021 BASIC METAB OLIC PANEL carbon dioxide 29 mmol/ L 22-30 Not Available [facility] (Lab) [address] [place], [address], 09/08/2021 13:29:31 09/09/19 22 09/08/2021 BASIC METAB OLIC PANEL agap 12.6 mmol/ L 14-22 low Not Available [facility] (Lab) [address] [place], [address], 09/08/2021 13:29:31 09/09/19 22 09/08/2021 BASIC METAB OLIC PANEL glucose 138 mg/dL 70-99 high Not Available [facility] (Lab) [address] [place], [address], 09/08/2021 13:29:31 09/09/19 22 09/08/2021 BASIC METAB OLIC PANEL BUN 15 mg/dL 8-19 Not Available [facility] (Lab) [address] [place], [address], 09/08/2021 13:29:31 03/24/20 22 09/08/2021 BASIC METAB OLIC PANEL creatinine 0.54 mg/dL 0.66-1 .25 low Not Available [facility] (Lab) [address] [place], [address], 09/08/2021 13:29:31 09/09/19 22 09/08/2021 BASIC METAB OLIC PANEL GFR >60 Refer ence Range : [place] ge GFR Healt hy Adult : >60 [...] or ethni c subgr oups, such as Hisnc nics. Outsi de the valid ated inna [...] able on the F websi te: https ://ww w.kid silvia.o rg/pr ofess ional s/kdo qi/gf r_cal culat or Not Available [facility] (Lab) [address] [place], [address], 09/08/2021 13:29:31 09/09/19 22 09/08/2021 BASIC METAB OLIC PANEL calcium 9.7 mg/dL 8.4-10 .2 Not Available [facility] (Lab) [address] [place], [address], 09/08/2021 13:29:31 09/09/19 22 09/08/2021 LIPID PANEL cholesterol 164 mg/dL 140-19 9 NIH RAÚL NSUS RECOM MENDA TION FOR MAYRA STERO L: ADULT CHILD LOW RISK: <200 <170 BORDE RLINE : <200- 239 ----- HIGH RISK: >240 >200 Not Available [facility] (Lab) [address] [place], [address], 09/08/2021 13:29:27 09/09/19 22 09/08/2021 LIPID PANEL triglyceride s 198 mg/dL 0-150 high NIH RAÚL NSUS REPOR T RECOM MENDA TION FOR TRIGL YCERI NORIS: ADULT CHILD LOW RISK: <150 ----- BODER LINE: 150-1 99 ----- HIGH RISK: >200 ----- Not Available [facility] (Lab) [address] [place], [address], 09/08/2021 13:29:27 09/09/19 22 09/08/2021 LIPID PANEL HDL cholesterol 39 mg/dL 40- low Not Available [facility] (Lab) [address] [place], [address], 09/08/2021 13:29:27 09/09/19 22 09/08/2021 LIPID PANEL [...] WILL NOT BE REPOR ROXANE. Not Available [facility] (Lab) [address] [place], [address], 09/08/2021 13:29:27 09/09/19 22 09/08/2021 HEPAT IC/LI GUTIERREZ PANEL alkaline phosphatase 93 U/L 38-126 Not Available [facility] (Lab) [address] [place], [address], 09/08/2021 13:29:25 09/09/19 22 09/08/2021 HEPAT IC/LI GUTIERREZ PANEL alanine aminotransfe rase 28 U/L 0-35 Not Available [facility] (Lab) [address] [place], [address], 09/08/2021 13:29:25 09/09/19 22 09/08/2021 HEPAT IC/LI GUTIERREZ PANEL aspartate aminotransfe rase 36 U/L 15-37 Not Available [facility] (Lab) [address] [place], [address], 09/08/2021 13:29:25 09/09/19 22 09/08/2021 HEPAT IC/LI GUTIERREZ PANEL bilirubin, total 0.70 mg/dL 0.20-1 .30 Not Available [facility] (Lab) [address] [place], [address], 09/08/2021 13:29:25 09/09/19 22 09/08/2021 HEPAT IC/LI GUTIERREZ PANEL bilirubin, conjugated (direct) 0.00 mg/dL 0.00-0 .30 Not Available [facility] (Lab) [address] [place], [address], 09/08/2021 13:29:25 09/09/19 22 09/08/2021 HEPAT IC/LI GUTIERREZ PANEL biliurubin,u ncong. (indirect) 0.50 mg/dL 0.00-1 .1 Not Available [facility] (Lab) [address] [place], [address], 09/08/2021 13:29:25 09/09/19 22 09/08/2021 HEPAT IC/LI GUTIERREZ PANEL total protein 7.0 g/dL 6.3-8. 2 Not Available [facility] (Lab) [address] [place], [address], 09/08/2021 13:29:25 09/09/19 22 09/08/2021 HEPAT IC/LI GUTIERREZ PANEL albumin 4.3 g/dL 3.4-5. 0 Not Available [facility] (Lab) [address] [place], [address], 09/08/2021 13:29:25 09/09/19 22 09/08/2021 HEPAT IC/LI GUTIERREZ PANEL globulin 2.7 g/dL 2.6-4. 2 Not Available [facility] (Lab) [address] [place], [address], 09/08/2021 13:29:25 09/09/19 22 09/08/2021 HEPAT IC/LI GUTIERREZ PANEL A/G ratio 1.6 ratio 1.0-2. 0 Not Available [facility] (Lab) [address] [place], [address], 09/08/2021 13:29:25 05/04/20 21 05/04/2021 elect destinee martel am No observ ation record ed. [id number] [facility] [address] , [facility], [place], [address], 08/16/2022 22:28:41 05/05/20 21 XR, chest , 2 view [facility] [address] [place] [address] Sergio t Name: NIDHI GRIFFITH Access ion #: [id number] Sex: F : 1960 1 Locati [...] tely imaged here. Page 1 of 2 [facility] Name: NIDHI GRIFFITH Access ion #: [id number] Sex: F : 1960 1 Exam [...] 9:19 AM (CT) Page 2 of 2 [id number] [facility] (Imaging) [address] [place], [address], 08/16/2022 22:28:41 05/05/20 21 05/05/2021 XR, chest , 2 view No observ ation record ed. [id number] [facility] [address] [place] [address], [place], [address], 08/16/2022 22:28:41 Result Notes Documentation Provider Name and Address Organization Details Recorded Time Xr, Chest, 2 View : [facility] [address] [place] [address] Patient Name: NIDHI VASQUEZ Sex: F : 1960 Location: [facility] Attending Physician: ADRIÁN MCKEON Ordering Physician: ADRIÁN MCKEON Exam Date: 05/05/2021 9:01 AM Exam Name: XR CHEST 2V Admitting Diagnosis(es): RADIOLOGY REPORT - FINAL EXAM: XR CHEST 2V HISTORY: pre surgery evaluation 60-year-old female with preoperative chest x-ray prior to spinal fusion surgery. COMPARISON: None available. TECHNIQUE: 2 views of the chest were performed. FINDINGS: No pneumothorax, pulmonary edema, or consolidative infiltrates. The heart is not enlarged. The aortic arch is calcific. No fractures are identified about the bony thorax. There is thoracic and lumbar degenerative disc disease. There are postoperative changes of the lower lumbar spine, not completely imaged here. Page 1 of 2 [facility] Patient Name: NIDHI VASQUEZ Sex: F : 1960 Exam Date: 05/05/2021 9:01 AM Exam Name: XR CHEST 2V Admitting Diagnosis(es): IMPRESSION: 1. No acute intrathoracic process. 2. Atherosclerotic vascular disease. 3. Thoracolumbar degenerative disc disease and partially visualized postoperative changes of the lumbar spine. 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 Not Available [employer] 03/01/202 3 22:27:02 History of malignant neoplasm of breast 205480461 Active 2020 9 Not Available [facility] 3 22:27:02 History of lumbar fusion 9868440171924 6 Active 2020 Not Available [facility] 3 22:27:02 Diabetes mellitus 21866841 Active 2020 Not Available [facility] 3 22:27:02 Sleep apnea 18706328 Active 2020 Not Available [facility] 3 22:27:02 Disorder of vitamin B12 699937601 Active 2020 Not Available [facility] 3 22:27:01 Atheroscle rosis Active 2020 Not Available [facility] 3 22:27:02 Hyperlipid emia 69994737 Active 2022 MARINO Avalos [address], [address], [place], [address] , [employer] [facility] 3 09:23:46 Cobalamin deficiency 101431513 Active 2022 MARINO Avalos [address], [address], [place], [address] , [employer] [facility] 3 09:25:50 Hypothyroi dism 35225513 Active 2022 MARINO Avalos [address], [address], [place], [address] , [employer] [facility] 3 14:47:26 Restless legs syndrome 24978232 Active 2022 MARINO Avalos [address], [address], [place], [address] , [employer] [facility] 3 14:50:00 Hypertensi ve disorder 32236477 Active 2022 MARINO Avalos [address], [address], [place], [address] , [employer] [facility] 3 14:51:14 Problem Notes None recorded. Procedures Surgical History Date Name Laterality Status Provider Name and Address Organization Details Recorded Time Tonsillectomy completed Not Available [facility] 08/16/2022 22:26:18 other completed Not Available [facility] 06/2022 22:26:18 Back Surgeries completed Not Available [facility] 08/16/2022 22:26:18 Imaging Results None recorded. Procedure Notes None recorded. Medical Equipment None Reported. Allergies Allergen ID Allergen Name Allergen Category Reaction Reaction Severity Criticality Documentation Date Start Date Code Code System Note Provider Name and Address Organization Details Recorded Time 86479 tetracycl ine medicatio n Not available Not available Not available 08/16/2022 05825 RxNorm Not Available [facility] 3 22:28:36 82620 Substance with sulfonami de structure and antibacte rial mechanism of action (substanc e) medicatio n Not available Not available Not available 08/16/2022 69099 8003 SNOMED Not Available [facility] 3 22:28:36 66541 Bydureon medicatio n Not available Not available Not available 08/16/2022 16672 64 RxNorm Not Available [facility] 3 22:28:36 Medications Name Sig Start [...] Available Not Available Vitals Date Recorded Body height Body mass index (BMI) Body weight Body temperature Heart rate Oxygen saturation Oxygen saturation in Arterial blood by Pulse oximetry Systolic And Diastolic Provider Name and Address Organization Details Last Updated DateTime 3 142.24 cm 33 kg/m2 94588.0 8 g 98.4 [degF] 82 /min 100 % 100 % 142/80 mm[Hg] Jorge John CMA [place] [facility] [place] [employer] [facility] 3 14:35:54 Date Recorded Body mass index (BMI) Body height Oxygen saturation Oxygen saturation in Arterial blood by Pulse oximetry Heart rate Body temperature Body weight Systolic And Diastolic Provider Name and Address Organization Details Last Updated DateTime 2 34.5 kg/m2 142.24 cm 97 % 97 % 88 /min 96.3 [degF] 87228.2 2 g 122/80 mm[Hg] Not Available [facility] 3 22:26:27 Date Recorded Body height Provider Name an d Address Organization Details Last Updated DateTime 03/14/2021 142.24 cm Not Available [facility] 3 22:26:27 Date Recorded Body mass index (BMI) Body height Oxygen saturation Oxygen saturation in Arterial blood by Pulse oximetry Heart rate Body temperature Body weight Systolic And Diastolic Provider Name and Address Organization Details Last Updated DateTime 1 34.5 kg/m2 142.24 cm 98 % 98 % 82 /min 98 [degF] 80604.2 2 g 140/80 mm[Hg] Not Available [facility] 3 22:26:27 Date Recorded Body mass index (BMI) Body height Oxygen saturation Oxygen saturation in Arterial blood by Pulse oximetry Heart rate Body temperature Body weight Systolic And Diastolic Provider Name and Address Organization Details Last Updated DateTime 2 35.9 kg/m2 142.24 cm 98 % 98 % 90 /min 96 [degF] 75651.7 8 g 132/70 mm[Hg] Not Available [employer] 3 22:26:27 Social History Question Answer Notes LastModified by Street[employer] Details LastModified Time Tobacco Smoking Status Never Smoker LUDMILA Rivera [place] [employer] [facility] 08/21/2022 14:23:55 What Is Your Level Of Caffeine Consumption? Occasional [id number] Information not available 08/16/2022 How Much Tobacco Do You Chew? None [id number] Information not available 08/16/2022 In The 14 Days Before Symptom Onset, Have You Had Close Contact With A Laboratory-confirm ed COVID-19 While That Case Was Ill? No Information n ot available 08/21/2022 In The 14 Days Before Symptom Onset, Have You Had Close Contact With A Person Who Is Under Investigation For COVID-19 While That Person Was Ill? No Information not available 08/21/2022 What Type Of Diet Are You Following? REGULAR [id number] Information not available 08/16/2022 Which Illicit Or Recreational Drugs Have You Used? None [email or web address] Information not available 08/21/2022 How Much Tobacco Do You Smoke? No [id number] Information not available 08/16/2022 Do You Have Any Dietary Restrictions? No [email or web address] Information not available 08/21/2022 Sex: Unknown Functional Status Question Answer Note LastModified by [employer] Details LastModified Time What is your level of alcohol consumption? None 3-4 times yearly [id number] Information not available 08/16/2022 Do you or have you ever used smokeless tobacco? Never used smokeless tobacco [id number] Information not available 08/16/2022 Do you or have you ever used e-cigarettes or vape? Never used electronic cigarettes Information not available 08/21/2022 What is your exercise level? Occasional [id number] Information not available 08/16/2022 Mental Status None recorded. Family History Relationship Description Onset Age of this Age Resolved Age Notes LastModified by Organization Details LastModified Time Mother Neuropathy [id number] Not available 08/16/2022 22:26:19 Mother Hypertensive disorder [id number] Not available 08/16/2022 22:26:19 Notes:cardiac issues - [...] mcg/0.3 mL dose 1 completed Not Available [facility] 08/16/2022 22:28:32 Influenza, split virus, quadrivalent, preservative 1 completed Not Available [facility] 08/16/2022 22:28:32 COVID-19, mRNA, LNP-S, PF, 100 mcg/0.5mL dose or 50 mcg/0.25mL dose 1 completed Not Available [facility] 08/16/2022 22:28:32 COVID-19, mRNA, LNP-S, PF, 100 mcg/0.5mL dose or 50 mcg/0.25mL dose 1 completed Not Available [facility] 08/16/2022 22:28:32 pneumococcal polysaccharide PPV23 1 completed Not Available [facility] 08/16/2022 22:28:32 Influenza, split virus, quadrivalent, preservative 0 completed Not Available [facility] 08/16/2022 22:28:32 Influenza, split virus, quadrivalent, PF 2 completed Not Available [facility] 08/16/2022 22:28:33 Past Encounters Encounter ID Performer Location Encounter Start Date Encounter Closed Date Diagnosis/Indication Diagnosis SNOMED-CT Code Diagnosis ICD10 Code Diagnosis IMO Codes Diagnosis Note [id number] Be Brandon MD [facility] Kaushik walter [address] [facility] [place] [address] 12/21/2020 00:00:00 12/21/2020 13:01:12 [id number] Be Brandon MD [facility] [place] [address] [place] [address] 03/14/2021 00:00:00 03/14/2021 14:21:07 [id number] Be Brandon MD [facility] [place] [address] [place] [address] 05/04/2021 00:00:00 05/04/2021 15:32:47 [id number] [facility] [place] [address] [place] [address] 08/31/2021 00:00:00 08/31/2021 11:25:43 [id number] MARINO Avalos [facility] [place] [address] [facility] [place] [address] 05/22/2022 00:00:00 05/22/2022 18:59:50 [id number] MARINO Avalos [facility] [place] [address] [facility] [address] [place] [address] 08/21/2022 14:23:32 08/21/2022 15:26:01 Diabetes mellitus 28448057 E11.9 (05/22/22) A1C 6.8Fasting AM sugars running around 130s.Belle nue with metformin 500mg TID and Trulicity 1.5mg weekly. Encouraged healthy eating/exe rcise. Hyperlipidemia 56144544 E78.5 Continue Atorvastat in 20mg daily. Adult [facility] th examination 152692875 Z00.00 Will get routine labs today. Covid vaccines- recommende d to keep up with boostersFl u vaccine- recommende d next fallTetanu s vaccine- recommende d; declined Pap- 01/2022 wnlColonos copy- due; will order in a few months, would like to hold for nowMammogr am- 03/2022 wnl Recommende d routine eye exams and dental cleanings. Cobalamin deficiency 190 370563 E53.8 Elevated on last labs, has not been on supplement for the last year. Hypothyroidism 14678502 E03.9 Recheck labs today. Restless l egs syndrome 83179612 G25.81 Stable. Continue pramipexol e. Hypertensive disorder 38 255062 I10 Continue to monitor. Health Concerns Section Related Observation LastModified by Organization Detai ls LastModified Time None Recorded Concern Status LastModified by Organization Details LastModified Time None Recorded Advance Directives Directive None Recorded Payers Insurance Date Sequence Insurance Name Policy Number Policy Gilliland Covered Member ID Gilliland Member ID Guarantor Name 08/23/2023 1 [employer] - NOW (INDEMNITY) [id number] Nidhi Vasquez [id number] OI Nidhi Vasquez Notes Date Note Type Note Provider Name and Address Organization Details Recorded Time 08/21/2022 text/html Pt. here for annual physical. No new concerns or complaints. MARINO Avalos [address] [place] [address] [address], [place], [address], [place] [employer] 08/21/2022 16:31:02 OBGyn Episode No OBEpisode recorded.
--- OUTSIDE RECORDS SUMMARY | 2025-04-28 12:36 | XMS_ITS | Patient Health Record ---
Author Organization [facility] Address [address] [place] [address] Support Name Relationship Address Phone Nidhi Martines Guarantor Unknown [phone] Allergies No Known Allergies Reason For Referral No Information Medications Medication SIG (Take, Route, Frequency, Duration) Notes Start Date End Date Status metFORMIN HCl ER 500 MG TAKE 2 TABLETS BY MOUTH DAILY WITH EVENING MEALS Oral 11/10/2013 Active Sinemet 500 /200 mg Once daily in evening Oral *Pick strength-form from [employer] for eRX* Active Tamoxifen Citrate 20 MG take 1 tablet (20 mg) by oral route once daily Oral 1 Active Vitamin D 4000 IU DAILY *Pick strength-form from [employer] for eRX* Active Problems Problem Type SNOMED Code ICD Code Onset Dates Problem Status W/U Status Risk Notes Problem Renal disorder due to type 2 diabetes mellitus (876201629) Diabetes with other specified manifestations, type II or unspecified type, not stated as uncontrolled (250.80) 012 Active confirmed Associated with Metabolic Syndrome. Problem Mixed hyperlipidemia (359647683) Mixed hyperlipidemia (272.2) 012 Active confirmed Problem Lumbar post-laminectomy syndrome (088781121) Postlaminectomy syndrome, lumbar region (722.83) Active confirmed Has had 3 back surgeries since 1998 , ( with post op Staph Infection ) and 05/[address] at [facility] . Multi levels lumbar fusion. 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 Problem Hyperlipidemia (19589189) Hyperlipidemia, unspecified (E78.5) 005 Active confirmed Problem Essential hypertension (41934014) Essential (primary) hypertension (I10) 005 Active confirmed Plan Of Treatment No Information Insurance Providers Payer Name Payer Address Payer Phone Subscriber Number Group Number Insured Name Patient Relationship to Insured Coverage Start Date Coverage End Date DO NOT USE [id number] Nidhi Martines Self - patient is the insured 2010 Medical (General) History Surgical History Surgery Date(Month/Year) Back surgery: 3 surgeries to date , Fusion of L4-5 , surgery in 2005 was complicated by post op infection., Date of Procedure: 1998,,; 2011-07-25 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
--- OUTSIDE RECORDS SUMMARY | 2025-04-28 12:36 | XMS_ITS | Patient Health Record ---
Author Organization [facility] Address [address] [place] [address] Care Team Providers Care Diesel Dragline Operator Name Role Phone Itzel Suarez Primary Care Provider UnavailRomana Camacho Unavailable [phone] FATOUMATA DE JESUS, LISSETTE Unavailable Unavailable Darshana, Adrián Unavailable [phone] [place] Unavailable [phone] Allergies Allergen (clinical drug ingredient) Drug/Non Drug Allergy documented on EMR Reaction Allergy Type Onset Date Status tetracycline Tetracycline Unknown Drug Allergy A ctive Substance with sulfonamide structure and antibacterial mechanism of action (substance) Sulfa Antibiotics Unknown Drug Allergy Active Biduren Pen (uncoded) Unknown Allergy Active Results Component Value Reference Range Notes Results Reviewed date:11/17/2024 10:04:20 AM Interpretation: Performing Lab: Notes/Report: CODEINE <25 25 ng/mL MORPHINE <25 25 ng/mL HYDROCODONE <25 25 ng/mL HYDROMORPHONE <25 25 ng/mL OXYCODONE <25 25 ng/mL OXYMORPHONE <25 25 ng/mL FENTANYL <1.0 1.0 ng/mL MEPERIDINE <25 25 ng/mL TRAMADOL <25 25 ng/mL BUPRENORPHINE <2.0 2.0 ng/mL METHADONE <25 25 ng/mL TAPENTADOL <10.0 10.0 ng/mL CLONAZEPAM <10.0 10.0 ng/mL CLONAZEPAM METABOLITE <10.0 10.0 ng/mL ALPRAZOLAM <5.0 5.0 ng/mL ALPRAZOLAM METABOLITE <10.0 10.0 ng/mL DIAZEPAM <10.0 10.0 ng/mL NORDIAZEPAM <10.0 10.0 ng/mL TEMAZEPAM <10.0 10.0 ng/mL OXAZEPAM <10.0 10.0 ng/mL LORAZEPAM <10.0 10.0 ng/mL COCAINE <10.0 10.0 ng/mL COCAINE METABOLITE (BE) <10.0 10.0 ng/mL HEROIN METABOLITE (6-AM) <5.0 5.0 ng/mL PHENCYCLIDINE <10.0 10.0 ng/mL THC <5.0 5.0 ng/mL MDMA <25 25 ng/mL MDA <25 25 ng/mL MDEA <25 25 ng/mL METHAMPHETAMINE <25 25 ng/mL AMPHETAMINE <25 25 ng/mL PDF Reviewed date:11/17/2024 10:04:20 AM Interpretation: Performing Lab: Notes/Report: Results (Not yet reviewed by provider) Interpretation: Performing Lab: Notes/Report: CODEINE <50 50 ng/mL MORPHINE <50 50 ng/mL HYDROCODONE <50 50 ng/mL NORHYDROCODONE <50 50 ng/mL HYDROMORPHONE <50 50 ng/mL OXYCODONE <50 50 ng/mL NOROXYCODONE <50 50 ng/mL OXYMORPHONE <50 50 ng/mL FENTANYL <2.0 2.0 ng/mL FENTANYL METABOLITE <10.0 10.0 ng/mL MEPERIDINE <75 75 ng/mL MEPERIDINE METABOLITE <75 75 ng/mL TRAMADOL <75 75 ng/mL TRAMADOL METABOLITE <75 75 ng/mL BUPRENORPHINE <5.0 5.0 ng/mL BUPRENORPHINE METABOLITE <10.0 10.0 ng/mL NALOXONE <25 25 ng/mL METHADONE <75 75 ng/mL EDDP <75 75 ng/mL TAPENTADOL <75 75 ng/mL PENTAZOCINE <50 50 ng/mL NALTREXONE <10 10 ng/mL CLONAZEPAM METABOLITE <40 40 ng/mL ALPRAZOLAM METABOLITE <40 40 ng/mL NORDIAZEPAM <40 40 ng/mL TEMAZEPAM <40 40 ng/mL OXAZEPAM <40 40 ng/mL LORAZEPAM <40 40 ng/mL TRIAZOLAM METABOLITE <40 40 ng/mL COCAINE METABOLITE (BE) <50 50 ng/mL HEROIN METABOLITE (6-AM) <10.0 10.0 ng/mL PHENCYCLIDINE (PCP) <10.0 10.0 ng/mL cTHC <10.0 10.0 ng/mL MDMA <100 100 ng/mL MDA <100 100 ng/mL MDEA <100 100 ng/mL METHAMPHETAMINE <100 100 ng/mL AMPHETAMINE <100 100 ng/mL PHENTERMINE <100 100 ng/mL RITALINIC ACID <100 100 ng/mL ETHYL SULFATE <500 500 ng/mL ETHYL GLUCURONIDE <500 500 ng/mL Specimen Validity (Not yet r eviewed by provider) Interpretation: Performing Lab: Notes/Report: Creatinine 60.60 > 20 mg/dL mg/dL Oxidants NOT DETECTED < 200 ug/mL ug/mL pH 7.66 4.50-9.50 Specific [place] 1.017 1.003-1.050 PDF (Not yet reviewed by pro vider) Interpretation: Performing Lab: Notes/Report: Results (Not yet reviewed by provider) Interpretation: Performing Lab: Notes/Report: CODEINE <50 50 ng/mL MORPHINE <50 50 ng/mL HYDROCODONE <50 50 ng/mL NORHYDROCODONE <50 50 ng/mL HYDROMORPHONE <50 50 ng/mL OXYCODONE <50 50 ng/mL NOROXYCODONE <50 50 ng/mL OXYMORPHONE <50 50 ng/mL FENTANYL <2.0 2.0 ng/mL FENTANYL METABOLITE <10.0 10.0 ng/mL MEPERIDINE <75 75 ng/mL MEPERIDINE METABOLITE <75 75 ng/mL TRAMADOL 937 75 ng/mL TRAMADOL METABOLITE 2091 75 ng/mL BUPRENORPHINE <5.0 5.0 ng/mL BUPRENORPHINE METABOLITE <10.0 10.0 ng/mL NALOXONE <25 25 ng/mL METHADONE <75 75 ng/mL EDDP <75 75 ng/mL TAPENTADOL <75 75 ng/mL PENTAZOCINE <50 50 ng/mL NALTREXONE <10 10 ng/mL CLONAZEPAM METABOLITE <40 40 ng/mL ALPRAZOLAM METABOLITE <40 40 ng/mL NORDIAZEPAM <40 40 ng/mL TEMAZEPAM <40 40 ng/mL OXAZEPAM <40 40 ng/mL LORAZEPAM <40 40 ng/mL TRIAZOLAM METABOLITE <40 40 ng/mL COCAINE METABOLITE (BE) <50 50 ng/mL HEROIN METABOLITE (6-AM) <10.0 10.0 ng/mL PHENCYCLIDINE (PCP) <10.0 10.0 ng/mL cTHC <10.0 10.0 ng/mL MDMA <100 100 ng/mL MDA <100 100 ng/mL MDEA <100 100 ng/mL METHAMPHETAMINE <100 100 ng/mL AMPHETAMINE <100 100 ng/mL PHENTERMINE <100 100 ng/mL RITALINIC ACID <100 100 ng/mL ETHYL SULFATE <500 500 ng/mL ETHYL GLUCURONIDE <500 500 ng/mL Specimen Validity (Not yet r eviewed by provider) Interpretation: Performing Lab: Notes/Report: Creatinine 70.79 > 20 mg/dL mg/dL Oxidants NOT DETECTED < 50 ug/mL ug/mL pH 8.85 4.50-9.50 Specific [place] 1.007 1.003-1.050 PDF (Not yet reviewed by pro vider) Interpretation: Performing Lab: Notes/Report: Reason For Referral No Information Medications Medication SIG (Take, Route, Frequency, Duration) Notes Start Date End Date Status Acetaminophen Extra Strength 1000 MG/30ML as directed Orally Active Vitamin E 180 MG (400 UNIT) 1 capsule Or ally Once a day for 30 day(s) Active Ibuprofen 600 MG 1 tablet with food o r milk as needed Orally Three times a day Active Atorvastatin Calcium 20 MG 1 tablet Oral ly Once a day for 30 day(s) Active Rosuvastatin Calcium 40 MG 1 tablet Oral ly Once a day Active Vitamin D 50 MCG (2000 UT) 1 tablet Oral ly Once a day for 30 day(s) Active Accu-Chek Active Act gerson tiZANidine HCl 4 MG 1-2 tablets at bedti me as needed Orally At bedtime as needed for 30 days 11/03/2024 Active Famotidine 20 MG 1 tablet at bedtime as needed Orally Once a day for 30 day(s) Active traMADol HCl 50 MG 1 tablet Orally twic e per day PRN for 30 days 04/08/2025 Active Mounjaro 2.5 MG/0.5ML as directed Subcutaneous Active metFORMIN HCl 500 MG 1 tablet with a marvel l Orally Once a day for 30 day(s) Active One Touch Lancets as directed for 30 Days Active Vascepa 1 gram 1 capsule Orally as directed Active Icosapent Ethyl 1 GM 2 capsules with marvel ls Orally Twice a day Active Levothyroxine Sodium 88 MCG 1 tablet in the morning on an empty stomach Orally Once a day for 30 day(s) Active amLODIPine Besylate 10 MG 1 tablet Orall y Once a day Active Pramipexole Dihydrochloride 0.25 MG 1 tablet Orally Once a day for 30 day(s) Active Clobetasol Propionate 0.05 % 1 applicati on Externally Twice a day for 10 day(s) Active Synthroid 25 MCG 1 tablet every morni ng on an empty stomach Orally Once a day Active Valsartan-hydroCHLOROthiazid e 160-12.5 MG 1 tablet Orally Once a day for 30 day(s) Active Social History Tobacco Use: Social History Observation Description Date Details (start date - stop date) Never Smoker NA - NA Alcohol Screening Question Answer Notes Alcoholic drink in the past year Yes Frequency Monthly or less (1 point) Points 1 Interpretation Negative Screening Question Answer Notes Are you a current smoker? never smoker Problems Problem Type SNOMED Code ICD Code Onset Dates Problem Status W/U Status Risk Notes Problem Lumbar spondylosis (128604367) Lumbar spondylosis (M47.816) Active confirmed Problem Solitary sacroiliitis (165639017) Sacroiliitis, not elsewhere classified (M46.1) Active confirmed Problem Degeneration of lumbosacral intervertebral disc (04578253) Other intervertebral disc degeneration, lumbosacral region (M51.37) Active confirmed Problem Degeneration of lumbar intervertebral disc (73543160) Other intervertebral disc degeneration, lumbar region (M51.36) Active confirmed Problem Post-laminectomy syndrome (72378276) Failed back syndrome of lumbar spine (M96.1) Active confirmed Problem Spinal stenosis of lumbar region (64477530) LUMBAR SPINAL STENOSIS W/O CLAUDICATION (M48.061) Active confirmed Encounters Encounter Location Date Provider Diagnosis [facility] [address] [place] [address] 09/04/2024 [place] Ahmed Sacroiliitis, not elsewhere classified M46.1 and LUMBAR SPINAL STENOSIS W/O CLAUDICATION M48.061 [facility] [address] [place] [address] 09/29/2024 Romana Adhikari Sacroiliitis, not elsewhere classified M46.1 [facility] [address] [place] [address] 10/06/2024 Romana Adhikari Sacroiliitis, not elsewhere classified M46.1 [facility] [address] 10/14/2024 Adrián Gilliland Spinal stenosis, lumbar region with neurogenic claudication M48.062 ; Lumbar radiculopathy M54.16 and Failed back syndrome of lumbar spine M96.1 [facility] [address] [place] [address] 11/28/2024 Romana Adhikari Lumbar radiculopathy M54.16 and Spinal stenosis, lumbar region with neurogenic claudication M48.062 [facility] [address] 12/16/2024 Adrián Gilliland Cervical spondylosis without myelopathy M47.812 and Myalgia of auxiliary muscles, head and neck M79.12 [facility] [address] 04/07/2025 Adrián Gilliland Myalgia of auxiliary muscles, head and neck M79.12 and Myalgia, other site M79.18 [facility] [address] 04/16/2025 Adrián Gilliland Myalgia, other site M79.18 [facility] [address] [place] [address] 09/04/2024 [facility] [address] [place] [address] [address] [place], [place] [id number] 11/03/2024 [facility] [address] [place] [address] [address] [place], [place] [id number] 11/03/2024 Romana Adhikari [facility] [address] [place] [address] 12/18/2024 Romana Adhikari [facility] [address] [place] [address] 12/18/2024 Romana Adhikari [facility] [address] [place] [address] 04/08/2025 Romana Adhikari Assessments Encounter Date Diagnosis (ICD Code) Assessment Notes Treatment Notes Treatment Clinical Notes Section Notes 09/04/2024 Sacroiliitis, not elsewhere classified (ICD-10 - M46.1) Assessment is unchanged from 03/06/2024 except as denoted below. 09/04/2024 LUMBAR SPINAL STENOSIS W/O CLAUDICATION (ICD-10 - M48.061) Assessment is unchanged from 03/06/2024 except as denoted below. 09/29/2024 Sacroiliitis, not elsewhere classified (ICD-10 - M46.1) 10/06/2024 Sacroiliitis, not elsewhere classified (ICD-10 - M46.1) 10/14/2024 Spinal stenosis, lumbar region with neurogenic claudication (ICD-10 - M48.062) Assessment is unchanged from 09/04/24 except as denoted below. 10/14/2024 Lumbar radiculopathy (ICD-10 - M54.16) Assessment is unchanged from 09/04/24 except as denoted below. 11/28/2024 Lumbar radiculopathy (ICD-10 - M54.16) 11/28/2024 Spinal stenosis, lumbar region with neurogenic claudication (ICD-10 - M48.062) 12/16/2024 Cervical spondylosis without myelopathy (ICD-10 - M47.812) Assessment is unchanged from 10/14/24 except as denoted below. 12/16/2024 Myalgia of auxiliary muscles, head and neck (ICD-10 - M79.12) Assessment is unchanged from 10/14/24 except as denoted below. 04/07/2025 Myalgia of auxiliary muscles, head and neck (ICD-10 - M79.12) Assessment is unchanged from 12/16/24 except as denoted below. 04/07/2025 Myalgia, other site (ICD-10 - M79.18) Assessment is unchanged from 12/16/24 except as denoted below. 04/16/2025 Myalgia, other site (ICD-10 - M79.18) 10/14/2024 Failed back syndrome of lumbar spine (ICD-10 - M96.1) Assessment is unchanged from 09/04/24 except as denoted below. 09/04/2024 Other Notes: Significant time was spent due to complex decision-making as a result of the patient's complicated pain issues. The plan is as follows: Patient will continue exercise therapy regimen. We will schedule a Left and then Right sacroiliac injection to target sacroiliitis that is causing posterior hip pain. This injection has provided good relief in the past. We again discussed SI fusion procedure, but the patient states that she would like to avoid surgical options at this time. We may consider a new MRI-LS if pain symptoms in the legs persist or worsen. Patient's most recent drug screen was reviewed, and no critical abnormalities were noted. New sample obtained today. We will refill Tramadol 50 mg 1 tablet PO BID PRN x 7 days (#14) as patient has tolerated the medication well without side effects and with good response for pain control. Patient advised to contact the clinic if they develop any new or worsening pain symptoms. The total encounter time for today's visit was 30 minutes which was spent on preparation for the visit, e.g. chart review, and in the activities documented in this note. Please refer back to the HPI and physical exam sections of this note for further details regarding this encounter. Assessment is unchanged from 03/06/2024 except as denoted below. 10/14/2024 Other Notes: Significant time was spent due to complex decision-making as a result of the patient's complicated pain issues. The plan is as follows: Patient will continue exercise therapy regimen. Briefly discussed with the pt about the SI fusion and SCS implant procedures for longer term pain relief of her sacroiliitis. The pt defers the procedures at this time. Will schedule the patient for a caudal ELIAZAR to target pain and radicular symptoms stemming from stenosis. Discussed procedure details, risks, benefits, alternatives and expected outcomes with the patient. The patient expresses understanding. All patient questions were answered to the patient's satisfaction. We will not add or change any medications at this time as the patient is currently tolerating all medications with no significant side effects. Advised pt to contact clinic if they develop any new/worsening symptoms or pain The total encounter time for today's visit was 30 minutes which was spent on preparation for the visit, e.g. chart review, and in the activities documented in this note. Please refer back to the HPI and physical exam sections of this note for further details regarding this encounter. Assessment is unchanged from 09/04/24 except as denoted below. 12/16/2024 Other Notes: Significant time was spent due to complex decision-making as a result of the patient's complicated pain issues. The plan is as follows: Patient will continue exercise therapy regimen. Discussed with pt about cervical MBBs and RFA to target her axial neck pain. Pt defers this procedure for now. Reviewed most recent drug screen report which shows no concerning abnormalities Will refill pt's Tramadol as it improves pain and function without significant side effects. WIll obtain drug screen today. PT elects to FU PRN after her upcoming 3 week trip to [place]. We will not add or change any other medications at this time as the patient is currently tolerating all medications with no significant side effects. Advised pt to contact clinic if they develop any new/worsening symptoms or pain The total encounter time for today's visit was 30 minutes which was spent on preparation for the visit, e.g. chart review, and in the activities documented in this note. Please refer back to the HPI and physical exam sections of this note for further details regarding this encounter. Assessment is unchanged from 10/14/24 except as denoted below. 04/07/2025 Other Notes: Significant time was spent due to complex decision-making as a result of the patient's complicated pain issues. The plan is as follows: Patient will continue exercise therapy regimen. Reviewed most recent drug screen report which shows no concerning abnormalities Will refill pt's Tramadol as it improves pain and function without significant side effects. WIll obtain drug screen today. Recommended to pt that we order xrays of her painful areas (C and T spine) due to her recent falls and pain. Explained risks of serious injury if fractures are present but not treated. Pt expresses understanding of risks but declines xrays at this time. Pt would like to try PT and injections before obtaining any imaging. Reviewed very strict ED precautions with the pt in regards to her recent falls. Pt expresses understanding. We will refer the patient for physical therapy to help strengthen muscles, improve mobility and/or stability, and correct biomechanical dysfunction. We will schedule a B UQ Trigger point injection to target taut and tender muscles. Discussed procedure details, risks, benefits, alternatives and expected outcomes of the above procedures with the patient. The patient expressed understanding. All patient questions were answered to the patient's satisfaction. Discussed with pt about Cervical MBBs and RFA for her neck pain but the pt declines at this time. We will not add or change any other medications at this time as the patient is currently tolerating all medications with no significant side effects. Advised patient to contact the clinic if they develop any new symptoms or worsening pain The total encounter time for today's visit was 30 minutes which was spent on preparation for the visit, e.g. chart review, and in the activities documented in this note. Please refer back to the HPI and physical exam sections of this note for further details regarding this encounter. Assessment is unchanged from 12/16/24 except as denoted below. Plan Of Treatment Pending Test Test Name Order Date Xray Pelvis AP only 09/25/2023 Results 04/08/2025 Results 12/17/2024 Specimen Validity 04/08/2025 Specimen Validity 12/17/2024 PDF 04/08/2025 PDF 12/17/2024 Insurance Providers Payer Name Payer Address Payer Phone Subscriber Number Group Number Insured Name Patient Relationship to Insured Coverage Start Date Coverage End Date [employer] [address] [place] [address] [id number] Nidhi Lew Self - patient is the insured Medical (General) History Medical History History ICD Code High Blood Pressure Diabetes High Cholesterol Sleep Apnea Thyroid Breast Cancer Batista's Syndrome Surgical History Surgery Date(Month/Year) Fusion - L34, L45, L5S1 2005 Lumbar Fusion 2020 4 additional back surgeries, unspecified
--- OUTSIDE RECORDS SUMMARY | 2025-04-28 12:36 | XMS_ITS | Encounter Summary ---
Author Organization [facility] Address [address] [place] [address] Phone Care Team Providers Care Pipeline Superintendent Division Name Role Phone No, Physician Primary Care Provider [phone] Itzel Suarez NP Primary Care Provider [phone] Encounter Details Date Type Department Care Team [...] on file Legal Sex Female 1:39 AM RAIL FILLER Gender Identity Female 01/22/2025 9:01 PM CDT Sexual Orientation Straight 01/22/2025 9: 01 PM CDT documented as of this encounter Plan of Treatment Not on file documented as of this encounter Procedures Procedure Name Priority Date/Time Associated Diagnosis Comments SLEEP LAB/STUDY - RESULT 05/08/2022 5:10 PM RAIL FILLER documented in this encounter Results * SLEEP LAB/STUDY - RESULT (05/08/2022 5:10 PM RAIL FILLER) us Provider Scanning Final Result documented in this encounter Visit Diagnoses Not on filedocumented in this encounter Care Teams Pipeline Superintendent Division Relationship Specialty Start Date End Date No, Physician PCP - General 12/11/23 09/02/24 Itzel Suarze NP [facility] [place] [address] PCP - General Nurse Practitioner 09/03/24 documented as of this encounter
[2025-04-28 13:43] LABS: Albumin Level 4.1 g/dL (3.5-5.1); Anion Gap 9 mmol/L (4-12); Blood Urea Nitrogen 23 mg/dL (7-17); Calcium 9.6 mg/dL (8.4-10.2); Carbon Dioxide 24 mmol/L (22-30); Chloride 103 mmol/L (98-107); Estimated Glomerular Filt Rate 50; Glucose 157 mg/dL (65-110); Potassium 3.9 mmol/L (3.4-5.0); Sodium 136 mmol/L (137-145)
== END 2025-04-28 12:32 | disposition home or self-care (01) ==
LOC: ANHLAB 12:33
PROVIDERS: PCP Nurse Practitioner Adult Health; Visit Provider Internal Medicine Endocrinology, Diabetes & Metabolism
DX: I10 Essential (primary) hypertension (principal)
CPT/HCPCS: 36415; 80069

== ENCOUNTER 2025-06-08 07:15 | Outpatient (CLI) | payer OTHER, SELFPAY ==
--- OUTSIDE RECORDS SUMMARY | 2024-10-14 04:15 | XMS_ITS ---
Author Organization [facility] Address [address] [place] [address] Care Team Providers Care Patient Access Name Role Phone Itzel Suarez Primary Care Provider Romana Cruz [phone] FATOUMATA DE JESUS, LISSETTE Unavailable Unavailable REASON FOR VISIT R SI Encounters Encounter Location Date Provider Diagnosis [facility]-[address] [address] 10/14/2024 Romana Adhikari Plan Of Treatment No Information Progress Notes * Nidhi VASQUEZDOB: [birth year] (64 yo F)Acc No.[id number]:10/14/2024 Injection Patient: Nidhi SON Provider: Denilson Adhikari MD :1960 A ge:63 Y S ex:Female Date:10/14/2024 Address:[address] [place] [address] [address] [place], [place] Pcp:Itzel Suarez Subjective: * Chief Complaints: * Medical History: Objective: Assessment: Plan: * Treatment: * * Electronic signature of Romana Adhikari MD on 06/08/2025 at 08:20 AM EST Sign off status: Pending * Provider: Denilson Adhikari MD Date: 0 10/14/2024 Generated for Naatn ng/Fajimenag/eTransmitting on: 1 08/09/2024 08:20 AM EST
--- OUTSIDE RECORDS SUMMARY | 2024-12-16 07:00 | XMS_ITS ---
Author Organization [facility] Address [address] [place] [address] Care Team Providers Care Sign Painter Name Role Phone Itzel Suarez Primary Care Provider UnavailRomana Camacho Unavailable [phone] FATOUMATA DE JESUS, LISSETTE Mcleod Unavailable Adrián Gilliland [phone] REASON FOR VISIT 2 Wks Encounters Encounter Location Date Provider Diagnosis [facility]-[address] [address] 12/16/2024 Adrián Gilliland Plan Of Treatment No Information Progress Notes * CHRISTINA JuannamrataDOB: [birth year] (64 yo F)Acc No.[id number]:12/16/2024 Post Procedure Follow Up Patient: Nidhi SON Provider: MARINO Wilcox :1960 A ge:64 Y S ex:Female Date:12/16/2024 Address:[address] [place] [address] [place], [place] Pcp:Itzel Suarez Subjective: * Chief Complaints: * 1 . 2 Wks. * Medical History: Objective: * Vitals: Assessment: Plan: * Treatment: * * Electronic signature of MARINO Romero on 06/08/2025 at 08:19 AM EST Sign off status: Pending * Provider: MARINO Wilcox Date: 0 12/16/2024 Generated for Billiei ng/Fajimenag/eTransmitting on: 1 08/09/2024 08:19 AM EST
--- OUTSIDE RECORDS SUMMARY | 2025-04-30 03:30 | XMS_ITS ---
Author Organization [facility] Address [address] [place] [address] Care Team Providers Care Refrigeration Person Name Role Phone Itzel Suarez Primary Care Provider UnavailRomana Camacho Unavailable [phone] FATOUMATA DE JESUS, LISSETTE Mcleod Unavailable Adrián Gilliland [phone] REASON FOR VISIT 2wks Encounters Encounter Location Date Provider Diagnosis [facility] [address] 04/30/2025 Adrián Gilliland Plan Of Treatment No Information Progress Notes * VASQUEZJuannamrataDOB: [birth year] (64 yo F)Acc No.[id number]:04/30/2025 Post Procedure Follow Up Patient: Nidhi SON Provider: MARINO Wilcox :1960 A ge:64 Y S ex:Female Date:04/30/2025 Address:[address] [place] [address] [place], [place] Pcp:Itzel Suarez Subjective: * Chief Complaints: * 1 . 2wks. * Medical History: Objective: * Vitals: Assessment: Plan: * Treatment: * * Electronic signature of MARINO Romero on 06/08/2025 at 08:20 AM EST Sign off status: Pending * Provider: MARINO Wilcox Date: 06/30/2024 Generated for Billiei ng/Fajimenag/eTransmitting on: 08/09/2024 08:20 AM EST
--- OUTSIDE RECORDS SUMMARY | 2025-06-08 07:19 | XMS_ITS | Encounter Summary ---
Author Organization [facility] Address [address] [place] [address] Phone Care Team Providers Care Hydroponics Grower Name Role Phone No, Physician Primary Care Provider [phone] Itzel Suarez NP Primary Care Provider [phone] Encounter Details Date Type Department Care Team [...] on file Legal Sex Female 1:39 AM ORDER EXPEDITER Gender Identity Female 01/22/2025 9:01 PM CDT Sexual Orientation Straight 01/22/2025 9: 01 PM CDT documented as of this encounter Plan of Treatment Not on file documented as of this encounter Procedures Procedure Name Priority Date/Time Associated Diagnosis Comments SLEEP LAB/STUDY - RESULT 05/08/2022 5:10 PM ORDER EXPEDITER documented in this encounter Results * SLEEP LAB/STUDY - RESULT (05/08/2022 5:10 PM ORDER EXPEDITER) us Provider Scanning Final Result documented in this encounter Visit Diagnoses Not on filedocumented in this encounter Care Teams Hydroponics Grower Relationship Specialty Start Date End Date No, Physician PCP - General 12/11/23 09/02/24 Itzel Suarez NP [facility] [place] [address] PCP - General Nurse Practitioner 09/03/24 documented as of this encounter
--- OUTSIDE RECORDS SUMMARY | 2025-06-08 07:19 | XMS_ITS | Clinical Summary ---
Author Organization [facility] Address [address] [place] [address] Care Team Providers Care Buildings And Grounds Director Name Role Phone Itzel Suarez NP Primary Care Provider [phone] Allergies Active Allergy Reactions Criticality Noted Date Comments Exenatide Microspheres Unknown 02/24/2019 Morphine Sulfa (Sulfonamide Antibiotics) Swelling Medium 2009 Sulfanilamide Other (See comments) Reaction: Unknown, Tetracycline Other (See comments),Rash Reaction: Unknown, , Reaction: RASH, Tetracyclines Rash Medium 2009 Medications vit C-vit M-ptpafd-qrut-l utein (PRESERVISION LUTEIN) 226 mg-200 unit -5 [...] 1 tablet (88 mcg total) by mouth dormitory maid before breakfast Active atorvastatin (LIPITOR) 20 mg [...] on file Legal Sex Female 1:39 AM INSEAM TRIMMER Gender Identity Female 01/22/2025 9:01 PM CDT [...] (2 of 2) 04/14/2023 02/17/2023 Covid-19 Vaccine (2024-2 6 season) 2025 10/25/2021, 03/25/2021, 09/15/2020, Additional [...] Requesting: RUBEN BAH M.D. Requesting Requesting ID: [id number] Attending Attending ID: [id number] Completed Time: 04/15/2014 4:26 PM Dictated Time: [...] Requesting: RUBEN BAH M.D. Requesting Requesting ID: [id number] Attending Attending ID: [id number] Completed Time: 04/15/2014 4:26 PM Dictated Time: [...] FAX: NextGen Order #: us Historical Provider IMG MAMMO PROCEDURES Reyna l Result from Last 3 Months or Most Recently Relevant to Health [place] [address] [facility] [place] [address] [facility] [id number] [place] [address] [facility] [id number] Care Teams Buildings And Grounds Director Relationship Specialty Start Date End Date Itzel Suarez NP [address] [place] [address] [address] [place], [place] [id number] PCP - General Nurse Practitioner 09/03/24
--- OUTSIDE RECORDS SUMMARY | 2025-06-08 07:19 | XMS_ITS | Patient Health Record ---
Author Organization [facility] Address [address] [place] [address] Support Name Relationship Address Phone Nidhi Martines Guarantor Unknown [phone] Allergies No Known Allergies Reason For Referral No Information Medications Medication SIG (Take, Route, Frequency, Duration) Notes Start Date End Date Status metFORMIN HCl ER 500 MG TAKE 2 TABLETS BY MOUTH DAILY WITH EVENING MEALS Oral 11/10/2013 Active Sinemet 500 /200 mg Once daily in evening Oral *Pick strength-form from [employer] [facility] for eRX* Active Tamoxifen Citrate 20 MG take 1 tablet (20 mg) by oral route once daily Oral 1 Active Vitamin D 4000 IU DAILY *Pick strength-form from [facility] for eRX* Active Problems Problem Type SNOMED Code ICD Code Onset Dates Problem Status W/U Status Risk Notes Problem Renal disorder due to type 2 diabetes mellitus (149174482) Diabetes with other specified manifestations, type II or unspecified type, not stated as uncontrolled (250.80) 012 Active confirmed Associated with Metabolic Syndrome. Problem Mixed hyperlipidemia (315323508) Mixed hyperlipidemia (272.2) 012 Active confirmed Problem Lumbar post-laminectomy syndrome (917210428) Postlaminectomy syndrome, lumbar region (722.83) Active confirmed Has had 3 back surgeries since 1998 , ( with post op Staph Infection ) and 05/[address] Barr at [facility] . Multi levels lumbar fusion. 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 Problem Hyperlipidemia (38898973) Hyperlipidemia, unspecified (E78.5) 005 Active confirmed Problem Essential hypertension (55163524) Essential (primary) hypertension (I10) 005 Active confirmed Plan Of Treatment No Information Insurance Providers Payer Name Payer Address Payer Phone Subscriber Number Group Number Insured Name Patient Relationship to Insured Coverage Start Date Coverage End Date DO NOT USE [id number] Nidhi Martines Self - patient is the insured 2010 Medical (General) History Surgical History Surgery Date(Month/Year) Back surgery: 3 surgeries to date , Fusion of L4-5 , surgery in 2005 was complicated by post op infection., Date of Procedure: 1998,,; 2011-07-25 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
--- OUTSIDE RECORDS SUMMARY | 2025-06-08 07:20 | XMS_ITS | Data Portability ---
Author Organization [place] [facility], Main Office Address [address] [place] [address] Assessment No assessment recorded. Plan of Treatment Reminders Order Date Submit Date Provider Last Modified By Organization Details Last Modified Time Details Appointments None recorded. Lab CMP, serum or plasma 2022 023 [facility] (Lab), [address] [place], [address], 3 05:34:07 HbA1c (hemoglobin A1c), blood [address] (Lab), [address] [place], [address], 3 07:58:55 TSH, serum, reflex free T4 2022 023 [facility] (Lab), [address] [place], [address], 3 05:34:08 lipid panel, serum 2022 023 [facility] (Lab), [address] [place], [address], 3 05:34:07 vitamin B12 + folate, serum or blood 2022 023 [facility] (Lab), [address] [place], [address], 3 05:34:08 Referral None recorded. Procedures None recorded. Surgeries None recorded. Imaging None recorded. Medication Orders pramipexole 0.25 mg tablet 2022 023 [facility][id number], [address], [place], [id number], 3 14:52:19 valsartan 160 mg-hydrochl orothiazide 12.5 mg tablet 2022 023 [facility] #18240, [address], [place], [id number], 3 14:52:15 metformin 500 mg tablet 2022 023 [facility] #23860, [address], [place], [id number], 3 14:52:18 Trulicity 1.5 mg/0.5 mL subcutaneou s pen injector 2022 023 [facility] #79043, [address], [place], [id number], 3 14:57:53 levothyroxi ne 88 mcg tablet 2022 023 [facility] #19877, [address], [place], [id number], 3 14:52:20 Patient TargetsNo targets recorded. Patient InstructionsNo instructions recorded. Reason for Referral None Reported. Results Created Date Observation Date Name Description Value Unit Range Abnormal Flag Note LastModifiedBy Organization Detail LastModifiedTime 03/14/20 21 03/14/2021 urina lysis , dipst ick Leukocytes (reference range: negative raf/ l) Modera te Not Available [facility] [address] , [address], [place], [address], 03/14/2021 14:05:44 03/14/20 21 03/14/2021 urina lysis , dipst ick Nitrite (reference rage: negative mg/dl) negati ve Not Available [address] , [address], [place], [address], 03/14/2021 14:05:44 03/14/20 21 03/14/2021 urina lysis , dipst ick Urobilinogen (reference range: 0.2-1 mg/dl) 0.2 Not Available [address] , [address], [place], [address], 03/14/2021 14:05:44 03/14/20 21 03/14/2021 urina lysis , dipst ick Protein (reference range: negative mg/dl) Trace Not Available [address] , [address], [place], [address], 03/14/2021 14:05:44 03/14/20 21 03/14/2021 urina lysis , dipst ick pH (reference range: 5-7) 5.5 Not Available [address] , [address], [place], [address], 03/14/2021 14:05:44 03/14/20 21 03/14/2021 urina lysis , dipst ick Blood (reference range: negative Thom/ l) Small Not Available [address] , [address], [place], [address], 03/14/2021 14:05:44 03/14/20 21 03/14/2021 urina lysis , dipst ick Specific [place] (reference range: 1.005-1.030) 1.025 Not Available [facility] , [address], [place], [address], 03/14/2021 14:05:44 03/14/20 21 03/14/2021 urina lysis , dipst ick Ketone (reference range: negative mg/dl) Negati ve Not Available [address] , [address], [place], [address], 03/14/2021 14:05:44 03/14/20 21 03/14/2021 urina lysis , dipst ick Bilirubin (reference range: negative mg/dl) Negati ve Not Available [address] , [address], [place], [address], 03/14/2021 14:05:44 03/14/20 21 03/14/2021 urina lysis , dipst ick Glucose (reference range: negative mg/dl) Negati ve Not Available [address] , [address], [place], [address], 03/14/2021 14:05:44 03/14/20 21 03/14/2021 urina lysis , dipst ick Appearance Slight ly Cloudy Not Available [address] , [address], [place], [address], 03/14/2021 14:05:44 03/14/20 21 03/14/2021 urina lysis , dipst ick Color Yellow Not Available [address] , [address], [place], [address], 03/14/2021 14:05:44 03/15/2003/15/2021 CULTU RE URINE urc ===== ===== ===== ===== ===== ===== ===== ===== ===== ===== ===== ===== ===== ===== ===== ===== ===== ===== ===== ===== ===== ===== ===== ===== CULTU RE NO.: [id number] Exam Statu s: Final Exam Type: CULTU [...] furan toin <=16 S 021K Not Available [facility] (Lab) [address] [place], [address], 03/17/2021 08:46:54 09/09/19 22 09/08/2021 MICRO ALBUM IN RANDO M URINE microalb <6.0 mg/L 0.0-16 .6 RESUL T IS LESS THAN REPOR TABLE RANGE OF ASSAY . Not Available [facility] (Lab) [address] [place], [address], 09/08/2021 18:48:41 09/09/19 22 09/08/2021 FOLAT E, SERUM /PLAS MA folate 10.4 NG/mL 2.76- Not Available [facility] (Lab) [address] [place], [address], 09/08/2021 16:14:30 09/09/19 22 09/08/2021 VITAM IN B12 (JAIMIE CASEY ) vb12 >1000 pg/mL 239-93 1 high Not Available [facility] (Lab) [address] [place], [address], 09/08/2021 16:14:28 09/09/19 22 09/08/2021 HEMOG LOBIN A1C HA1C 7.4 % 4.0-6. 0 high Diabe robert Scree marcos Crite hayley: <5.7% Consi stent with absen ce of diabe robert 5.7-6 .4% Consi stent with incre ased risk for diabe robert (pred iabet es) >OR=6 .5% Consi stent with diabe robert REFER ENCE: Diabe robert Care 2015, 39(Cuadra ppl.1 ):s13 -s22 Not Available [facility] (Lab) [address] [place], [address], 09/08/2021 14:20:29 09/09/19 22 09/08/2021 BASIC METAB OLIC PANEL sodium 138 mmol/ L 137-14 5 Not Available [facility] (Lab) [address] [place], [address], 09/08/2021 13:29:31 09/09/19 22 09/08/2021 BASIC METAB OLIC PANEL potassium 4.6 mmol/ L 3.5-5. 1 Not Available [facility] (Lab) [address] [place], [address], 09/08/2021 13:29:31 09/09/19 22 09/08/2021 BASIC METAB OLIC PANEL chloride 101 mmol/ L 98-107 Not Available [facility] (Lab) [address] [place], [address], 09/08/2021 13:29:31 09/09/19 22 09/08/2021 BASIC METAB OLIC PANEL carbon dioxide 29 mmol/ L 22-30 Not Available [facility] (Lab) [address] [place], [address], 09/08/2021 13:29:31 09/09/19 22 09/08/2021 BASIC METAB OLIC PANEL agap 12.6 mmol/ L 14-22 low Not Available [facility] (Lab) [address] [place], [address], 09/08/2021 13:29:31 09/09/19 22 09/08/2021 BASIC METAB OLIC PANEL glucose 138 mg/dL 70-99 high Not Available [facility] (Lab) [address] [place], [address], 09/08/2021 13:29:31 09/09/19 22 09/08/2021 BASIC METAB OLIC PANEL BUN 15 mg/dL 8-19 Not Available [facility] (Lab) [address] [place], [address], 09/08/2021 13:29:31 03/24/20 22 09/08/2021 BASIC METAB OLIC PANEL creatinine 0.54 mg/dL 0.66-1 .25 low Not Available [facility] (Lab) [address] [place], [address], 09/08/2021 13:29:31 09/09/19 22 09/08/2021 BASIC METAB OLIC PANEL GFR >60 Refer ence Range : Renick ge GFR Healt hy Adult : >60 [...] or ethni c subgr oups, such as Hisde nics. Outsi de the valid ated inna [...] s/kdo qi/gf r_cal culat or Not Available [facility] (Lab) [address] [place], [address], 09/08/2021 13:29:31 09/09/19 22 09/08/2021 BASIC METAB OLIC PANEL calcium 9.7 mg/dL 8.4-10 .2 Not Available [facility] (Lab) [address] [place], [address], 09/08/2021 13:29:31 09/09/19 22 09/08/2021 LIPID PANEL cholesterol 164 mg/dL 140-19 9 NIH RAÚL NSUS RECOM MENDA TION FOR MAYRA STERO L: ADULT CHILD LOW RISK: <200 <170 BORDE RLINE : <200- 239 ----- HIGH RISK: >240 >200 Not Available [facility] (Lab) [address] [place], [address], 09/08/2021 13:29:27 09/09/19 22 09/08/2021 LIPID PANEL triglyceride s 198 mg/dL 0-150 high NIH RAÚL NSUS REPOR T RECOM MENDA TION FOR TRIGL YCERI NORIS: ADULT CHILD LOW RISK: <150 ----- BODER LINE: 150-1 99 ----- HIGH RISK: >200 ----- Not Available [facility] (Lab) [address] [place], [address], 09/08/2021 13:29:27 09/09/19 22 09/08/2021 LIPID PANEL HDL cholesterol 39 mg/dL 40- low Not Available [facility] (Lab) [address] [place], [address], 09/08/2021 13:29:27 09/09/19 22 09/08/2021 LIPID PANEL [...] WILL NOT BE REPOR ROXANE. Not Available [facility] (Lab) [address] [place], [address], 09/08/2021 13:29:27 09/09/19 22 09/08/2021 HEPAT IC/LI GUTIERREZ PANEL alkaline phosphatase 93 U/L 38-126 Not Available [facility] (Lab) [address] [place], [address], 09/08/2021 13:29:25 09/09/19 22 09/08/2021 HEPAT IC/LI GUTIERREZ PANEL alanine aminotransfe rase 28 U/L 0-35 Not Available [facility] (Lab) [address] [place], [address], 09/08/2021 13:29:25 09/09/19 22 09/08/2021 HEPAT IC/LI GUTIERREZ PANEL aspartate aminotransfe rase 36 U/L 15-37 Not Available [facility] (Lab) [address] [place], [address], 09/08/2021 13:29:25 09/09/19 22 09/08/2021 HEPAT IC/LI GUTIERREZ PANEL bilirubin, total 0.70 mg/dL 0.20-1 .30 Not Available [facility] (Lab) [address] [place], [address], 09/08/2021 13:29:25 09/09/19 22 09/08/2021 HEPAT IC/LI GUTIERREZ PANEL bilirubin, conjugated (direct) 0.00 mg/dL 0.00-0 .30 Not Available [facility] (Lab) [address] [place], [address], 09/08/2021 13:29:25 09/09/19 22 09/08/2021 HEPAT IC/LI GUTIERREZ PANEL biliurubin,u ncong. (indirect) 0.50 mg/dL 0.00-1 .1 Not Available [facility] (Lab) [address] [place], [address], 09/08/2021 13:29:25 09/09/19 22 09/08/2021 HEPAT IC/LI GUTIERREZ PANEL total protein 7.0 g/dL 6.3-8. 2 Not Available [facility] (Lab) [address] [place], [address], 09/08/2021 13:29:25 09/09/19 22 09/08/2021 HEPAT IC/LI GUTIERREZ PANEL albumin 4.3 g/dL 3.4-5. 0 Not Available [facility] (Lab) [address] [place], [address], 09/08/2021 13:29:25 09/09/19 22 09/08/2021 HEPAT IC/LI GUTIERREZ PANEL globulin 2.7 g/dL 2.6-4. 2 Not Available [facility] (Lab) [address] [place], [address], 09/08/2021 13:29:25 09/09/19 22 09/08/2021 HEPAT IC/LI GUTIERREZ PANEL A/G ratio 1.6 ratio 1.0-2. 0 Not Available [facility] (Lab) [address] [place], [address], 09/08/2021 13:29:25 05/04/20 21 05/04/2021 elect destinee martel am No observ ation record ed. [id number] [facility] [address] , [facility] [address], [place], [address], 08/16/2022 22:28:41 05/05/20 21 XR, chest , 2 view [facility] [address] [place] [address] [phone] Sergio t Name: NIDHI GRIFFITH Access ion #: [id number] Sex: F : 1960 1 Locati [...] tely imaged here. Page 1 of 2 [facility] Name: NIDHI GRIFFITH Access ion #: [id number] Sex: F : 1960 1 Exam [...] 9:19 AM (CT) Page 2 of 2 [id number] [facility] (Imaging) [address] [place], [address], 08/16/2022 22:28:41 05/05/20 21 05/05/2021 XR, chest , 2 view No observ ation record ed. [id number] [facility] [address] [place] [address], [place], [address], 08/16/2022 22:28:41 Result Notes Documentation Provider Name and Address Organization Details Recorded Time Xr, Chest, 2 View : [facility] [address] [place] [address] Patient Name: NIDHI VASQUEZ Sex: F : 1960 Location: [facility] Attending Physician: ADRIÁN MCKEON Ordering Physician: [...] completely imaged here. 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 2020 Not Available [employer] 03/01/202 3 22:27:02 History of malignant neoplasm of breast 632394055 Active 2020 9 Not Available [facility] 3 22:27:02 History of lumbar fusion 5769729409903 6 Active 2020 Not Available [facility] 3 22:27:02 Diabetes mellitus 19802830 Active 2020 Not Available [facility] 3 22:27:02 Sleep apnea 74129989 Active 2020 Not Available [facility] 3 22:27:02 Disorder of vitamin B12 736372622 Active 2020 Not Available [facility] 3 22:27:01 Atheroscle rosis Active 2020 Not Available [facility] 3 22:27:02 Hyperlipid emia 09904880 Active 2022 MARINO Avalos [address], [address], [place], [address] , [employer] [facility] 3 09:23:46 Cobalamin deficiency 548056037 Active 2022 MARINO Avalos [address], [address], [place], [address] , [employer] [facility] 3 09:25:50 Hypothyroi dism 08121049 Active 2022 MARINO Avalos [address], [address], [place], [address] , [employer] [facility] 3 14:47:26 Restless legs syndrome 86949376 Active 2022 MARINO Avalos [address], [address], [place], [address] , [employer] [facility] 3 14:50:00 Hypertensi ve disorder 93062257 Active 2022 MARINO Avalos [address], [address], [place], [address] , [employer] [facility] 3 14:51:14 Problem Notes None recorded. Procedures Surgical History Date Name Laterality Status Provider Name and Address Organization Details Recorded Time Tonsillectomy completed Not Available [facility] 08/16/2022 22:26:18 other completed Not Available [facility] 06/2022 22:26:18 Back Surgeries completed Not Available [facility] 08/16/2022 22:26:18 Imaging Results None recorded. Procedure Notes None recorded. Medical Equipment None Reported. Allergies Allergen ID Allergen Name Allergen Category Reaction Reaction Severity Criticality Documentation Date Start Date Code Code System Note Provider Name and Address Organization Details Recorded Time 00117 tetracycl ine medicatio n Not available Not available Not available 08/16/2022 11826 RxNorm Not Available [facility] 3 22:28:36 58185 Substance with sulfonami de structure and antibacte rial mechanism of action (substanc e) medicatio n Not available Not available Not available 08/16/2022 96120 8003 SNOMED Not Available [facility] 3 22:28:36 55216 Bydureon medicatio n Not available Not available Not available 08/16/2022 30656 64 RxNorm Not Available [facility] 3 22:28:36 Medications Name Sig Start [...] weight Body temperature Heart rate Oxygen saturation Systolic And Diastolic Provider Name and Address Organization Details Last Updated DateTime 3 142.24 cm 33 kg/m2 54828.0 8 g 98.4 [degF] 82 /min 100 % 142/80 mm[Hg] Jorge John CMA [place] [facility] [place] [employer] [facility] 3 14:35:54 Date Recorded Body mass index (BMI) Body height Oxygen saturation Heart rate Body temperature Body weight Systolic And Diastolic Provider Name and Address Organization Details Last Updated DateTime 2 34.5 kg/m2 142.24 cm 97 % 88 /min 96.3 [degF] 91902.2 2 g 122/80 mm[Hg] Not Available [facility] 3 22:26:27 Date Recorded Body height Provider Name an d Address Organization Details Last Updated DateTime 03/14/2021 142.24 cm Not Available [facility] 3 22:26:27 Date Recorded Body mass index (BMI) Body height Oxygen saturation Heart rate Body temperature Body weight Systolic And Diastolic Provider Name and Address Organization Details Last Updated DateTime 1 34.5 kg/m2 142.24 cm 98 % 82 /min 98 [degF] 30724.2 2 g 140/80 mm[Hg] Not Available [facility] 3 22:26:27 Date Recorded Body mass index (BMI) Body height Oxygen saturation Heart rate Body temperature Body weight Systolic And Diastolic Provider Name and Address Organization Details Last Updated DateTime 2 35.9 kg/m2 142.24 cm 98 % 90 /min 96 [degF] 31421.7 8 g 132/70 mm[Hg] Not Available [facility] 22:26:27 Social History Question Answer Notes LastModified by Organizat ion Details LastModified Time Tobacco Smoking Status Never Smoker LUDMILA Rivera [place] [employer] [facility] 08/21/2022 14:23:55 What Is Your Level Of Caffeine Consumption? Occasional [id number] Information not available 08/16/2022 How Much Tobacco Do You Chew? None [id number] Information not available 08/16/2022 In The 14 Days Before Symptom Onset, Have You Had Close Contact With A Laboratory-confirm ed COVID-19 While That Case Was Ill? No [email or web address] Information n ot available 08/21/2022 In The 14 Days Before Symptom Onset, Have You Had Close Contact With A Person Who Is Under Investigation For COVID-19 While That Person Was Ill? No Information not available 08/21/2022 What Type Of Diet Are You Following? REGULAR [id number] Information not available 08/16/2022 Which Illicit Or Recreational Drugs Have You Used? None [email or web address] Information not available 08/21/2022 How Much Tobacco Do You Smoke? No [id number] Information not available 08/16/2022 Do You Have Any Dietary Restrictions? No [email or web address] Information not available 08/21/2022 Sex: Unknown Functional Status Question Answer Note LastModified by [employer] Details LastModified Time What is your level of alcohol consumption? None 3-4 times yearly [id number] Information not available 08/16/2022 Do you or have you ever used smokeless tobacco? Never used smokeless tobacco [id number] Information not available 08/16/2022 Do you or have you ever used e-cigarettes or vape? Never used electronic cigarettes [email or web address] Information not available 08/21/2022 What is your exercise level? Occasional [id number] Information not available 08/16/2022 Mental Status None recorded. Family History Relationship Description Onset Age of this Age Resolved Age Notes LastModified by Organization Details LastModified Time Mother Neuropathy [id number] Not available 08/16/2022 22:26:19 Mother Hypertensive disorder [id number] Not available 08/16/2022 22:26:19 Notes:cardiac issues - fathe r () Medical History Condition Response NO SIGNIFICANT PAST MEDICAL HISTORY Y Gynecological History Statement/Question Response Dislike of Light during Menstrual Headac he N Menses Monthly N Abnormal Pap N Current Control Method Menopause Obstetrics History GPAL:G 0 P 0 0 0 0 Immunizations Vaccine Type Date Status Note Provider Charan e and Address Organization Details Recorded Time COVID-19, mRNA, LNP-S, PF, 30 mcg/0.3 mL dose 1 completed Not Available [facility] 08/16/2022 22:28:32 Influenza, split virus, quadrivalent, preservative 1 completed Not Available [facility] 08/16/2022 22:28:32 COVID-19, mRNA, LNP-S, PF, 100 mcg/0.5mL dose or 50 mcg/0.25mL dose 1 completed Not Available [facility] 08/16/2022 22:28:32 COVID-19, mRNA, LNP-S, PF, 100 mcg/0.5mL dose or 50 mcg/0.25mL dose 1 completed Not Available [facility] 08/16/2022 22:28:32 pneumococcal polysaccharide PPV23 1 completed Not Available [facility] 08/16/2022 22:28:32 Influenza, split virus, quadrivalent, preservative 0 completed Not Available [facility] 08/16/2022 22:28:32 Influenza, split virus, quadrivalent, PF 2 completed Not Available [facility] 08/16/2022 22:28:33 Past Encounters Encounter ID Performer Location Encounter Start Date Encounter Closed Date Diagnosis/Indication Diagnosis SNOMED-CT Code Diagnosis ICD10 Code Diagnosis IMO Codes Diagnosis Note [id number] Be Brandon MD [facility] K[facility] he[place] [address] [place] [address] 12/21/2020 00:00:00 12/21/2020 13:01:12 [id number] [facility] [address] [place] [address] 03/14/2021 00:00:00 03/14/2021 14:21:07 [id number] Be Brandon MD [facility] [address] [place] [address] 05/04/2021 00:00:00 05/04/2021 15:32:47 [id number] [facility] [place] [address] [place] [address] 08/31/2021 00:00:00 08/31/2021 11:25:43 [id number] MARINO Avalos [facility] Primary Care [facility] [address] [facility] [address] [address] [place] [address] 05/22/2022 00:00:00 05/22/2022 18:59:50 [id number] MARINO Avalos [facility] Primary Care [facility] [address] [facility] [address] [place] [address] 08/21/2022 14:23:32 08/21/2022 15:26:01 Diabetes mellitus 38255449 E11.9 (05/22/22) A1C 6.8Fasting AM sugars running around 130s.Belle nue with metformin 500mg TID and Trulicity 1.5mg weekly. Encouraged healthy eating/exe rcise. Hyperlipidemia 53342341 E78.5 Continue Atorvastat in 20mg daily. Adult heal th examination 665153331 Z00.00 Will get routine labs today. Covid vaccines- recommende d to keep up with boostersFl u vaccine- recommende d next fallTetanu s vaccine- recommende d; declined Pap- 01/2022 wnlColonos copy- due; will order in a few months, would like to hold for nowMammogr am- 03/2022 wnl Recommende d routine eye exams and dental cleanings. Cobalamin deficiency 190 746884 E53.8 Elevated on last labs, has not been on supplement for the last year. Hypothyroidism 46488014 E03.9 Recheck labs today. Restless l egs syndrome 72082411 G25.81 Stable. Continue pramipexol e. Hypertensive disorder 38 703256 I10 Continue to monitor. Health Concerns Section Related Observation LastModified by Organization Detai ls LastModified Time None Recorded Concern Status LastModified by Organization Details LastModified Time None Recorded Advance Directives Directive None Recorded Payers Insurance Date Sequence Insurance Name Policy Number Policy [place] Covered Member ID [place] Member ID Guarantor Name 08/23/2023 1 [employer] - NOW (INDEMNITY) [id number] Nidhi Vasquez [id number] OI Nidhi Vasquez Notes Date Note Type Note Provider Name and Address Organization Details Recorded Time 08/21/2022 text/html Pt. here for annual physical. No new concerns or complaints. MARINO Avalos [address] [facility] [address], [place], [address], [facility] [facility] 08/21/2022 16:31:02 OBGyn Episode No OBEpisode recorded.
--- OUTSIDE RECORDS SUMMARY | 2025-06-08 07:21 | XMS_ITS | Patient Health Record ---
Author Organization [facility] Address [address] [place] [address] Care Team Providers Care Youth Advocate Name Role Phone Itzel Suarez Primary Care Provider UnavailRomana Camacho Unavailable [phone] FATOUMATA DE JESUS, LISSETTE Unavailable Unavailable Darshana, Adrián Unavailable [phone] [place] Unavailable [phone] Allergies Allergen (clinical drug ingredient) Drug/Non Drug [...] 200 ug/mL ug/mL pH 7.66 4.50-9.50 Specific [place] 1.017 1.003-1.050 PDF (Not yet reviewed by [...] 50 ug/mL ug/mL pH 8.85 4.50-9.50 Specific [place] 1.007 1.003-1.050 PDF (Not yet reviewed by [...] W/U Status Risk Notes Problem Lumbar spondylosis (788946955) Lumbar spondylosis (M47.816) Active confirmed Problem Solitary sacroiliitis (530233402) Sacroiliitis, not elsewhere classified (M46.1) Active confirmed Problem Degeneration of lumbosacral intervertebral disc (05806995) Other intervertebral disc degeneration, lumbosacral region (M51.37) Active confirmed Problem Degeneration of lumbar intervertebral disc (93489676) Other intervertebral disc degeneration, lumbar region (M51.36) Active confirmed Problem Post-laminectomy syndrome (74533811) Failed back syndrome of lumbar spine (M96.1) Active confirmed Problem Spinal stenosis of lumbar region (71397225) LUMBAR SPINAL STENOSIS W/O CLAUDICATION (M48.061) Active confirmed Encounters Encounter Location Date Provider Diagnosis [facility] [address] [place] [address] 09/04/2024 Conway Ahmed Sacroiliitis, not elsewhere classified M46.1 and LUMBAR SPINAL STENOSIS W/O CLAUDICATION M48.061 [facility] [address] [place] [address] 09/29/2024 Romana Adhikari Sacroiliitis, not elsewhere classified M46.1 [facility] [address] [place] [address] 10/06/2024 Romana Adhikari Sacroiliitis, not elsewhere classified M46.1 [facility] [address] 10/14/2024 Adrián Gilliland Spinal stenosis, lumbar region with neurogenic claudication M48.062 ; Lumbar radiculopathy M54.16 and Failed back syndrome of lumbar spine M96.1 [facility] [address] [place] [address] 11/28/2024 Romana Adhikari Lumbar radiculopathy M54.16 and Spinal stenosis, lumbar region with neurogenic claudication M48.062 [facility] [address] 12/16/2024 Adrián Gilliland Cervical spondylosis without myelopathy M47.812 and Myalgia of auxiliary muscles, head and neck M79.12 [facility] [address] 04/07/2025 Adrián Gilliland Myalgia of auxiliary muscles, head and neck M79.12 and Myalgia, other site M79.18 [facility] [address] 04/16/2025 Adrián Gilliland Myalgia, other site M79.18 [facility] [address] [place] [address] 09/04/2024 [facility] [address] [place] [address] [address] [place], [place] [id number] 11/03/2024 [facility] [address] [place] [address] [address] [place], [place] [id number] 11/03/2024 Romana Adhikari [facility] [address] [place] [address] 12/18/2024 Romana Adhikari [facility] [address] [place] [address] 12/18/2024 Romana Adhikari [facility] [address] [place] [address] 04/08/2025 Romana Adhikari Assessments Encounter Date Diagnosis [...] Insured Coverage Start Date Coverage End Date [employer] [address] [place] [address] [id number] Nidhi Lew Self - patient is the insured Medical (General) History Medical History History ICD Code High Blood Pressure Diabetes High Cholesterol Sleep Apnea Thyroid Breast Cancer Batista's Syndrome Surgical History Surgery Date(Month/Year) Fusion - L34, L45, L5S1 2005 Lumbar Fusion 2020 4 additional back surgeries, unspecified
--- OUTSIDE RECORDS SUMMARY | 2025-06-08 07:21 | XMS_ITS | Patient Health Record ---
Author Organization [facility] Address [address] [place] [address] Care Team Providers Care Skid Adzer Name Role Phone Itzel Suarez Primary Care Provider Erendira Andrew Unavailable [phone] Allergies Allergen (clinical drug ingredient) Drug/Non Drug Allergy documented on EMR Reaction Allergy Type Onset Date Status Neuropro (uncoded) Unknown Allergy A ctive Substance with sulfonamide structure and antibacterial mechanism of action (substance) sulfa (uncoded) Unknown Allergy Active Bydureon Unknown Drug Allergy Active tetracycline Tetracycline HCl Unknown Drug Allergy Active Reason For Referral No Information Medications Medication SIG (Take, Route, Frequency, Duration) Notes Start Date End Date Status Valsartan Active predniSONE 10 MG Tablet 1 tablet Orally twice a day; Duration: 10 days 06/03/2021 Not-Taking Atorvastatin Calcium Active Synthroid Not-Taking metFORMIN HCl Active traMADol HCl Not-Ronald ing Trulicity Active Aspir-81 Not-Taking PreserVision AREDS A ctive Vascepa Active Medrol 4 MG Tablet Therapy Pack as directed Orally take as directed 12/28/2021 Not-Taking Levothyroxine-Liothyronine Active Percocet 5-325 MG Tablet 1 tablet as nee ded Orally every 4 hrs; Duration: 7 days 06/07/2021 Not-Taking Pepcid Active Pramipexole Dihydrochloride Active Omeprazole Not-Takin g Vitamin D Active Fish Oil Not-Taking Vitamin A Active Vitamin E Active Social History Section Notes: . Consumes 3 to 4 alc oholid beverages a year. Denies tobacco use. Denies drug or chemical addiction. 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 . Consumes 3 to 4 alc oholid beverages a year. Denies tobacco use. Denies drug or chemical addiction. 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 . Consumes 3 to 4 alc oholid beverages a year. Denies tobacco use. Denies drug or chemical addiction. 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 . Consumes 3 to 4 alc oholid beverages a year. Denies tobacco use. Denies drug or chemical addiction. 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 . Consumes 3 to 4 alc oholid beverages a year. Denies tobacco use. Denies drug or chemical addiction. 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 . Consumes 3 to 4 alc oholid beverages a year. Denies tobacco use. Denies drug or chemical addiction. 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 . Consumes 3 to 4 alc oholid beverages a year. Denies tobacco use. Denies drug or chemical addiction. 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 . Consumes 3 to 4 alc oholid beverages a year. Denies tobacco use. Denies drug or chemical addiction. 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 She is . She consumes three to four alcoholic beverages a year. She denies tobacco use. She denies drug or chemical addiction. 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 Problems Problem Type SNOMED Code ICD Code Onset Dates Problem Status W/U Status Risk Notes Problem Displacement of lumbar intervertebral disc without myelopathy (65592669) Herniated lumbar intervertebral disc (M51.26) Active confirmed Plan Of Treatment Pending Test Test Name Order Date Lumbar Decompression 06/04/2018 Lumbar Revision Decompression and Parcel Post Truck Driver olateral Fusion 05/18/2021 Insurance Providers Payer Name Payer Address Payer Phone Subscriber Number Group Number Insured Name Patient Relationship to Insured Coverage Start Date Coverage End Date Getting[employer] Access [address] [place] [address] [id number] Nidhi Lew Self - patient is the insured Medical (General) History Medical History History ICD Code Hypertension Diabetes Breast Cancer Batista's Syndrome Surgical History Surgery Date(Month/Year) Lumbar decompression and fusion Ankle surgery L3-4 Decompression, L2-3, L3-4 Posterior Fusions 06/06/21 Hospitalization History Reason Date(Month/Year) As per above.
[2025-06-08 08:04] LABS: CRP < 0.5 mg/dL (<1.0)
[2025-06-08 08:58] LABS: Vitamin B12 404.0 pg/mL (239-931)
[2025-06-09 11:08] LABS: Anti-CCP Ab, IgG/IgA 8 units (0-19)
[2025-06-09 15:09] LABS: ANA by IFA Rfx Titer/Pattern Negative (.)
[2025-06-10 14:08] LABS: Immunoglobulin A, Qn 228 mg/dL (87-352); Immunoglobulin G, Qn 871 mg/dL (586-1602); Immunoglobulin M, Qn 41 mg/dL (26-217)
[2025-06-13 04:06] LABS: Vit. B1, Whole Blood 104.2 nmol/L (66.5-200.0)
== END 2025-06-08 07:16 | disposition home or self-care (01) ==
PROVIDERS: PCP Nurse Practitioner Adult Health; Visit Provider Psychiatry & Neurology Neurology
DX: G25.81 Restless legs syndrome (principal); M54.9 Dorsalgia, unspecified; E11.42 Type 2 diabetes mellitus with diabetic polyneuropathy; R55 Syncope and collapse; Q96.9 Turner's syndrome, unspecified
CPT/HCPCS: 36415; 82607; 82746; 82784; 83090; 83921; 84207; 84425; 86038; 86140; 86200; 86334; 86431

== ENCOUNTER 2025-06-09 15:13 | Outpatient (CLI) | payer OTHER, SELFPAY ==
--- OUTSIDE RECORDS SUMMARY | 2024-10-14 04:15 | XMS_ITS ---
Author Organization [facility] Address [address] [place] [address] Care Team Providers Care Private Eye Name Role Phone Itzel Suarez Primary Care Provider Romana Cruz [phone] FATOUMATA DE JESUS, LISSETTE Unavailable Unavailable REASON FOR VISIT R SI Encounters Encounter Location Date Provider Diagnosis [facility]-[address] [address] 10/14/2024 Romana Adhikari Plan Of Treatment No Information Progress Notes * Nidhi VASQUEZDOB: [birth year] (64 yo F)Acc No.[id number]:10/14/2024 Injection Patient: Nidhi SON Provider: Denilson Adhikari MD :1960 A ge:63 Y S ex:Female Date:10/14/2024 Address:[address] [place] [address] [address] [place] Pcp:Itzel Suarez Subjective: * Chief Complaints: * Medical History: Objective: Assessment: Plan: * Treatment: * * Electronic signature of Romana Adhikari MD on 06/09/2025 at 04:15 PM EST Sign off status: Pending * Provider: Denilson Adhikari MD Date: 0 10/14/2024 Generated for Billiei ng/Fajimenag/eTransmitting on: 1 08/10/2024 04:15 PM EST
--- OUTSIDE RECORDS SUMMARY | 2024-12-16 07:00 | XMS_ITS ---
Author Organization [facility] Address [address] [place] [address] Care Team Providers Care Security Installation Technician Name Role Phone Itzel Suarez Primary Care Provider UnavailRomana Camacho Unavailable [phone] FATOUMATA DE JESUS, LISSETTE Mcleod Unavailable Adrián Gilliland [phone] REASON FOR VISIT 2 Wks Encounters Encounter Location Date Provider Diagnosis [facility]-[address] [address] 12/16/2024 Adrián Gilliland Plan Of Treatment No Information Progress Notes * CHRISTINA JuannamrataDOB: [birth year] (64 yo F)Acc No.[id number]:12/16/2024 Post Procedure Follow Up Patient: Nidhi SON Provider: MARINO Wilcox :1960 A ge:64 Y S ex:Female Date:12/16/2024 Address:[address] [place] [address] [place] Pcp:Itzel Suarez Subjective: * Chief Complaints: * 1 . 2 Wks. * Medical History: Objective: * Vitals: Assessment: Plan: * Treatment: * * Electronic signature of MARINO Romero on 06/09/2025 at 04:15 PM EST Sign off status: Pending * Provider: MARINO Wilcox Date: 0 12/16/2024 Generated for Printi ng/Fajimenag/eTransmitting on: 08/10/2024 04:15 PM EST
--- OUTSIDE RECORDS SUMMARY | 2025-04-30 03:30 | XMS_ITS ---
Author Organization [facility] Address [address] [place] [address] Care Team Providers Care Videogame Tester Name Role Phone Itzel Suarez Primary Care Provider UnavailRomana Camacho Unavailable [phone] FATOUMATA DE JESUS, LISSETTE Mcleod Unavailable Adrián Gilliland Unavailable [phone] REASON FOR VISIT 2wks Encounters Encounter Location Date Provider Diagnosis [facility] [address] 04/30/2025 Adrián Gilliland Plan Of Treatment No Information Progress Notes * VASQUEZJuannamrataDOB: [birth year] (64 yo F)Acc No.[id number]:04/30/2025 Post Procedure Follow Up Patient: Nidhi SON Provider: MARINO Wilcox :1960 A ge:64 Y S ex:Female Date:04/30/2025 Address:[address] [place] [address] [place], [place] Pcp:Itzel Suarez Subjective: * Chief Complaints: * 1 . 2wks. * Medical History: Objective: * Vitals: Assessment: Plan: * Treatment: * * Electronic signature of MARINO Romero on 06/09/2025 at 04:15 PM EST Sign off status: Pending * Provider: AMRINO Wilcox Date: 06/30/2024 Generated for Billiei ng/Fajimenag/eTransmitting on: 08/10/2024 04:15 PM EST
--- NOTE | ~2025-06-09 | MM_ITS ---
EXAMINATION: MM screening abel BI w rajiv HISTORY: Screening. Left lumpectomy/partial mastectomy. TECHNIQUE: Craniocaudal and mediolateral oblique 3-D tomosynthesis images were obtained and synthetic 2-D images were generated. CAD analysis was submitted and interpreted. COMPARISON: June,. 2023, 2022, and 2021. BREAST PARENCHYMAL COMPOSITION: Dense: The breasts are heterogeneously dense FINDINGS: No suspicious masses are seen. There are no suspicious calcifications. Postop change is again noted on the left, along with evidence of extensive calcified fat necrosis. No unexplained architectural distortion is seen. There are no skin or nipple abnormalities identified. There is no adenopathy seen on the images submitted. IMPRESSION: No mammographic evidence to suggest malignancy is seen. The patient may return to screening mammography as per ACR guidelines. BI-RADS 2 - Benign. Reviewed, dictated and finalized at location C. RATIVE ENGRAVER APPRENTICE
--- OUTSIDE RECORDS SUMMARY | 2025-06-09 15:15 | XMS_ITS | Patient Health Record ---
Author Organization [facility] Address [address] [address] [place] [address] Support Name Relationship Address Phone Nidhi Martines Guarantor Unknown [phone] Allergies No Known Allergies Reason For Referral No Information Medications Medication SIG (Take, Route, Frequency, Duration) Notes Start Date End Date Status metFORMIN HCl ER 500 MG TAKE 2 TABLETS BY MOUTH DAILY WITH EVENING MEALS Oral 11/10/2013 Active Sinemet 500 /200 mg Once daily in evening Oral *Pick strength-form from [facility] for eRX* Active Tamoxifen Citrate 20 MG take 1 tablet (20 mg) by oral route once daily Oral 1 Active Vitamin D 4000 IU DAILY *Pick strength-form from [facility] for eRX* Active Problems Problem Type SNOMED Code ICD Code Onset Dates Problem Status W/U Status Risk Notes Problem Renal disorder due to type 2 diabetes mellitus (490615548) Diabetes with other specified manifestations, type II or unspecified type, not stated as uncontrolled (250.80) 012 Active confirmed Associated with Metabolic Syndrome. Problem Mixed hyperlipidemia (943382892) Mixed hyperlipidemia (272.2) 012 Active confirmed Problem Lumbar post-laminectomy syndrome (327920925) Postlaminectomy syndrome, lumbar region (722.83) Active confirmed Has had 3 back surgeries since 1998 , ( with post op Staph Infection ) and 05/[address] Barr at [facility] . Multi levels lumbar fusion. 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 Problem Hyperlipidemia (40752802) Hyperlipidemia, unspecified (E78.5) 005 Active confirmed Problem Essential hypertension (01852518) Essential (primary) hypertension (I10) 005 Active confirmed Plan Of Treatment No Information Insurance Providers Payer Name Payer Address Payer Phone Subscriber Number Group Number Insured Name Patient Relationship to Insured Coverage Start Date Coverage End Date DO NOT USE [id number] Nidhi Martines Self - patient is the insured 2010 Medical (General) History Surgical History Surgery Date(Month/Year) Back surgery: 3 surgeries to date , Fusion of L4-5 , surgery in 2005 was complicated by post op infection., Date of Procedure: 1998,,; 2011-07-25 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
--- OUTSIDE RECORDS SUMMARY | 2025-06-09 15:15 | XMS_ITS | Encounter Summary ---
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 Gender Identity Female 01/22/2025 9:01 PM CDT Sexual Orientation Straight 01/22/2025 9: 01 PM CDT documented as of this encounter Plan of Treatment Not on file documented as of this encounter Procedures Procedure Name Priority Date/Time Associated Diagnosis Comments SLEEP LAB/STUDY - RESULT 05/08/2022 5:10 PM HAT TRIMMER documented in this encounter Results * SLEEP LAB/STUDY - RESULT (05/08/2022 5:10 PM HAT TRIMMER) us Provider Scanning Final Result documented in this encounter Visit Diagnoses Not on filedocumented in this encounter Care Teams Signal Maintainer Helper Relationship Specialty Start Date End Date No, Physician PCP - General 12/11/23 09/02/24 Itzel Suarez NP [facility] [place] [address] PCP - General Nurse Practitioner 09/03/24 documented as of this encounter
--- OUTSIDE RECORDS SUMMARY | 2025-06-09 15:15 | XMS_ITS | Clinical Summary ---
Author Organization [facility] Address [address] [place] [address] Care Team Providers Care Development Officer Name Role Phone Itzel Suarez NP Primary Care Provider [phone] Allergies Active Allergy Reactions Criticality Noted Date Comments Exenatide Microspheres Unknown 02/24/2019 Morphine Sulfa (Sulfonamide Antibiotics) Swelling Medium 2009 Sulfanilamide Other (See comments) Reaction: Unknown, Tetracycline Other (See comments),Rash Reaction: Unknown, , Reaction: RASH, Tetracyclines Rash Medium 2009 Medications vit C-vit G-jxyxid-xfrn-l utein (PRESERVISION LUTEIN) 226 mg-200 unit -5 [...] 1 tablet (88 mcg total) by mouth banking pin adjuster before breakfast Active atorvastatin (LIPITOR) 20 mg [...] on file 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 Requesting Requesting ID: [id number] Attending Attending ID: [id number] Completed Time: 04/15/2014 4:26 PM Dictated Time: [...] Requesting: RUBEN BAH M.D. Requesting Requesting ID: [id number] Attending Attending ID: [id number] Completed Time: 04/15/2014 4:26 PM Dictated Time: [...] Most Recently Relevant to [place] [address] [facility] CHOICE PLUS [facility] HMO/PPO Address: [facility] [address] [place] [address] [place] [address] [facility] [address] [place] [address] [facility] [address] Care Teams Development Officer Relationship Specialty Start Date End Date Itzel Suarez NP [address] [place] [address] [address] [place], [place] [id number] PCP - General Nurse Practitioner 09/03/24
--- OUTSIDE RECORDS SUMMARY | 2025-06-09 15:16 | XMS_ITS | Patient Health Record ---
Author Organization [facility] Address [address] [place] [address] Care Team Providers Care Salesperson Flowers Name Role Phone Itzel Suarez Primary Care Provider UnavailRomana Camacho Unavailable [phone] FATOUMATA DE JESUS, LISSETTE Unavailable Unavailable Darshana, Adrián Unavailable [phone] [place] Conway Unavailable [phone] Allergies Allergen (clinical drug ingredient) Drug/Non Drug [...] 200 ug/mL ug/mL pH 7.66 4.50-9.50 Specific [place] 1.017 1.003-1.050 PDF (Not yet reviewed by [...] 50 ug/mL ug/mL pH 8.85 4.50-9.50 Specific [place] 1.007 1.003-1.050 PDF (Not yet reviewed by [...] W/U Status Risk Notes Problem Lumbar spondylosis (856568870) Lumbar spondylosis (M47.816) Active confirmed Problem Solitary sacroiliitis (503140248) Sacroiliitis, not elsewhere classified (M46.1) Active confirmed Problem Degeneration of lumbosacral intervertebral disc (36848377) Other intervertebral disc degeneration, lumbosacral region (M51.37) Active confirmed Problem Degeneration of lumbar intervertebral disc (66908200) Other intervertebral disc degeneration, lumbar region (M51.36) Active confirmed Problem Post-laminectomy syndrome (15627782) Failed back syndrome of lumbar spine (M96.1) Active confirmed Problem Spinal stenosis of lumbar region (69117854) LUMBAR SPINAL STENOSIS W/O CLAUDICATION (M48.061) Active confirmed Encounters Encounter Location Date Provider Diagnosis [facility] [address] [place] [address] 09/04/2024 Conway Ahmed Sacroiliitis, not elsewhere classified M46.1 and LUMBAR SPINAL STENOSIS W/O CLAUDICATION M48.061 [facility] [address] [place] [address] 09/29/2024 Romana Adhikari Sacroiliitis, not elsewhere classified M46.1 [facility] [address] [place] [address] 10/06/2024 Romana Adhikari Sacroiliitis, not elsewhere classified M46.1 [facility]-[address] [address] 10/14/2024 Adrián Gilliland Spinal stenosis, lumbar region with neurogenic claudication M48.062 ; Lumbar radiculopathy M54.16 and Failed back syndrome of lumbar spine M96.1 [facility] [address] [place] [address] 11/28/2024 Romana Adhikari Lumbar radiculopathy M54.16 and Spinal stenosis, lumbar region with neurogenic claudication M48.062 [facility]-[address] [address] 12/16/2024 Adrián Gilliland Cervical spondylosis without myelopathy M47.812 and Myalgia of auxiliary muscles, head and neck M79.12 [facility]-[address] [address] 04/07/2025 Adrián Gilliland Myalgia of auxiliary muscles, head and neck M79.12 and Myalgia, other site M79.18 [facility]-[address] [address] 04/16/2025 Adrián Gilliland Myalgia, other site M79.18 [facility] [address] [place] [address] 09/04/2024 [facility] [address] [place] [address] [address] [place], [place] [id number] 11/03/2024 [facility] [address] [place] [address] [address] [place], [place] [id number] 11/03/2024 Romana Adhikari [facility] [address] [place] [address] 12/18/2024 Romana Adhikari [facility] [address] [place] [address] 12/18/2024 Romana Adhikari [facility] [address] [place] [address] 04/08/2025 Romana Adhikari Assessments Encounter Date Diagnosis [...] Insured Coverage Start Date Coverage End Date [employer] [address] [place] [address] [id number] Nidhi Lew Self - patient is the insured Medical (General) History Medical History History ICD Code High Blood Pressure Diabetes High Cholesterol Sleep Apnea Thyroid Breast Cancer Batista's Syndrome Surgical History Surgery Date(Month/Year) Fusion - L34, L45, L5S1 2005 Lumbar Fusion 2020 4 additional back surgeries, unspecified
--- OUTSIDE RECORDS SUMMARY | 2025-06-09 15:16 | XMS_ITS | Patient Health Record ---
Author Organization [facility] Address [address] [facility] [address] [place] [address] Care Team Providers Care Tire Mechanic Name Role Phone Itzel Suarez Primary Care Provider Erendira Andrew Unavailable [phone] Allergies Allergen (clinical drug ingredient) Drug/Non Drug Allergy documented on EMR Reaction Allergy Type Onset Date Status Substance with sulfonamide structure and antibacterial mechanism of action (substance) sulfa (uncoded) Unknown Allergy Active Bydureon Unknown Drug Allergy Active tetracycline Tetracycline HCl Unknown Drug Allergy Active Neuropro (uncoded) Unknown Allergy A ctive Reason For Referral No Information Medications Medication [...] or chemical addiction. 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 . Consumes 3 to 4 alc oholid beverages a year. Denies tobacco use. Denies drug or chemical addiction. 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 . Consumes 3 to 4 alc oholid beverages a year. Denies tobacco use. Denies drug or chemical addiction. 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 . Consumes 3 to 4 alc oholid beverages a year. Denies tobacco use. Denies drug or chemical addiction. 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 . Consumes 3 to 4 alc oholid beverages a year. Denies tobacco use. Denies drug or chemical addiction. 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 . Consumes 3 to 4 alc oholid beverages a year. Denies tobacco use. Denies drug or chemical addiction. 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 . Consumes 3 to 4 alc oholid beverages a year. Denies tobacco use. Denies drug or chemical addiction. 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 . Consumes 3 to 4 alc oholid beverages a year. Denies tobacco use. Denies drug or chemical addiction. 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 She is . She consumes three to four alcoholic beverages a year. She denies tobacco use. She denies drug or chemical addiction. 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 Problems Problem Type SNOMED Code ICD Code Onset Dates Problem Status W/U Status Risk Notes Problem Displacement of lumbar intervertebral disc without myelopathy (42729085) Herniated lumbar intervertebral disc (M51.26) Active confirmed Plan Of Treatment Pending Test Test Name Order Date Lumbar Decompression 06/04/2018 Lumbar Revision Decompression and Salon Sales Consultant olateral Fusion 05/18/2021 Insurance Providers Payer Name Payer Address Payer Phone Subscriber Number Group Number Insured Name Patient Relationship to Insured Coverage Start Date Coverage End Date [employer] [address] [place] [address] [id number] Nidhi Lew Self - patient is the insured Medical (General) History Medical History History ICD Code Hypertension Diabetes Breast Cancer Batista's Syndrome Surgical History Surgery Date(Month/Year) Lumbar decompression and fusion Ankle surgery L3-4 Decompression, L2-3, L3-4 Posterior Fusions 06/06/21 Hospitalization History Reason Date(Month/Year) As per above.
== END 2025-06-09 15:14 | disposition home or self-care (01) ==
LOC: ANHFOHIMG 15:13
PROVIDERS: PCP Nurse Practitioner Adult Health; Visit Provider Obstetrics & Gynecology
DX: Z12.31 Encounter for screening mammogram for malignant neoplasm of breast (principal)
CPT/HCPCS: 77063; 77067